=== PATIENT | male | born 1940 | race Caucasian/White ===

== ENCOUNTER 2017-09-10 09:00 | Outpatient (RCR) | payer MEDICARE, SELFPAY ==
--- NOTE | 2017-08-16 13:02 | HP.PTEVAL_ITS ---
Patient's Visit Information MIGUEL YOUNG is a 77 year old M referred to Physical Therapy by RUBEN Willson with a diagnosis of LE radiculopathy. Date of Evaluation: 08/16/17 Physical Therapist: Malvin Christensen PT, - Visit Plan Frequency: 1x/Week Duration: 3 Weeks Plan: Edu on HEP for core and LE strengthening 2-3 visits - Subjective Subjective: Pt reports he has had B LE T and N for over 20 years. Pt reports he had LB surgery for spinal stenosis 5-6 years ago that really had no beneficial effect. Pt reports he has no LBP, but when he walks on concrete, his LE radiculopathy increases. His R LE is worse than his L LE. Pt reports lying down tends to decrease his pain. Pain is always worse as the day goes on. Feet go numb which makes driving hard at this time. 7/10 at rest, 10/10 at worst - Pain B LE's Pain Intensity (Out of 10): 7 Pain Intensity Range: 10 - Objective Neuro: Pt is hyposensitive in B L3-4-5 dematones. All other's are WNL. L pat reflex= 2/3, R= 1/3. LE MMT: B LE's grossly 4-4+/5 throughout. L/S ROM: Linmited in all planes. Repeated movements: NE with flexion - Goals Goal 1:: I with HEP Goal Time Frame: 2-4 Weeks - Rehabilitation Potential Physical Therapy Diagnosis: Pt has LE weakness and LE radiculopathy secondary to deg changes Rehabilitation Potential: Good - Anticipated Interventions Patient/Client Instruction: Educate patient on: Condition, Plan of Care For the Purpose of:: To improve self management Therapeutic Exercise to Include: Strength training, Dynamic Lumbar Stabilization For the Purpose of:: To decrease pain, To increase ROM, To improve muscle performance and motor function Thank you for the opportunity to evaluate your patient. For Medicare and Medicare HMO plans, please review the plan of care and approve it. It will need to be FAXED BACK to us at [phone] for Medicare purposes. Please let me know if there are questions or concerns regarding this plan of care. Physician Signature: Date:
--- NOTE | 2017-09-10 09:58 | HP.PTDCSUM_ITS ---
HP - PT D/C Summary It has been my pleasure to treat MIGUEL YOUNG under orders from Vicky Bales FELICIA for the diagnosis of LE radiculopathy for a total of 4 visit(s) . Discharge Date: Please see the following information for a summary of their discharge status. - Subjective Subjective: Pt reports the burning in his feet is bad - Pain B LE's Pain Intensity (Out of 10): 5 - Objective Objective/Function: Pain relatively the same at 5/10. Pt is I with HEP. Rx goal achieved - Goals Goal 1:: I with HEP Goal Progress: Goal Met - Plan Plan: Discharge to HEP - D/C Information If there are questions or concerns regarding this patient's physical therapy, please feel free to call me at [phone]. Thank you for the referral of this patient. Sincerely, Malvin Christensen, PT,
== END 2017-09-10 19:00 | disposition home or self-care (01) ==
LOC: PT 09:00
DX: M54.10 Radiculopathy, site unspecified (principal)
CPT/HCPCS: 97110; 97161; 97530

== ENCOUNTER 2018-08-08 10:16 | Day surgery (SDC) | payer MEDICARE, SELFPAY ==
[2018-08-08 10:43] VITALS: BP 109/79; PULSE 76; RESP 16; TEMP 37.1; O2SAT 95; BMI 29.5
--- NOTE | 2018-08-08 11:30 | RAD_ITS ---
STUDY: X-RAY - LEFT HIP REASON FOR EXAM: Left hip injection in OR. TECHNIQUE: 2 fluoroscopic images of the hip. COMPARISON: None. FINDINGS: There is contrast in the left hip joint with an overlying needle. 7.9 seconds of fluoroscopy time was used. Electronically Signed: Garett Khan MD at 14:07 EST Tel , Service support , RAD/Fluoro Guided Needle Placement
[2018-08-08] MEDS: Bupivacaine 0.25% 30 ML Vial (11:38)
[2018-08-08] MEDS: MethylPREDNISolone Acetate 80 MG/ML Vial (11:38)
--- NOTE | 2018-08-08 11:41 | PCM.OPRPT ---
Problem List (1) Primary osteoarthritis of left hip Status: Chronic Report of Operation Date of Procedure: 08/08/18 Pre-Operative Diagnosis: Osteoarthritis of the left hip Post-Operative Diagnosis: Osteoarthritis of the left hip Surgery/Procedure Performed:: Left hip intra-articular steroid injection under fluoroscopic guidance Description of Surgical Findings:: PROCEDURE: Left hip intra-articular steroid injection under fluoroscopic guidance PREOPERATIVE DIAGNOSIS: Osteoarthritis of the left hip POSTOPERATIVE DIAGNOSIS: Osteoarthritis of the left hip ANESTHESIA: MAC COMPLICATIONS: None BLOOD LOSS: Minimal PROCEDURE IN DETAIL: History and physical today was reviewed. Risks and benefits of the procedure were explained. The patient understood, agreed to our procedure, and informed consent was obtained. IV inserted per routine protocol. The patient was taken to the operating room, placed in a supine position the left hip area was prepped and draped in a sterile fashion using iodine x3 and fluoroscopy guidance AP view the left hip joint was visualized the skin and subcutaneous tissue and size approximately 3 cc of 1% lidocaine using a 25-gauge regular needle at approximately 3 cm cephalad to the left greater trochanter under direct visualization fluoroscopy on AP view the left hip joint was visualized using the lateral approach using a 22-gauge 5 inch spinal needle the needle was advanced via the skin the tip of the needle's maneuver and directed towards the superiormost aspect of the hip joint once the tip of the needle was at the vicinity of the joint after negative aspiration for blood positive aspiration of synovial fluid a total of 1 cc of contrast were injected to confirm correct placement of the needle as well as halo spread around the hip joint after repeated negative aspiration and confirmation a total of 10 cc of preservative-free 0.25% Marcaine with 80 mg of Depo-Medrol were injected easily the needle was then removed intact patient experienced onset of symptoms intravascular injection patient experienced no paresthesia. The procedure was completed without any apparent difficult, any complication. The patient appeared to tolerate well. ASSESSMENT AND PLAN: This is a 78-year-old male with osteoarthritis of the left hip status post left hip intra-articular steroid injection under fluoroscopic guidance. The patient will continue his current medications. The patient will follow in approximately 2 weeks for reevaluation.
[2018-08-08 11:45] VITALS: BP 109/79; BP 115/72; PULSE 78; RESP 16; TEMP 36.1; O2SAT 94
[2018-08-08 11:50] VITALS: BP 103/69; BP 109/79; PULSE 75; RESP 16; O2SAT 93
[2018-08-08 11:55] VITALS: BP 100/76; BP 109/79; PULSE 72; RESP 16; O2SAT 93
[2018-08-08 12:00] VITALS: BP 109/79; BP 115/69; PULSE 72; RESP 16; TEMP 36.8; O2SAT 94
[2018-08-08 12:41] VITALS: BP 109/79
== END 2018-08-08 12:42 | disposition home or self-care (01) ==
LOC: SDC 10:20 → AC 10:21
PROVIDERS: Referring Provider Anesthesiology Pain Medicine; Visit Provider Anesthesiology Pain Medicine
PROC: 3E0U3GC Introduction of Other Therapeutic Substance into Joints, Percutaneous Approach (ICD-10-PCS; CPT 20610; principal; 2018-08-08 11:25)
DX: M16.12 Unilateral primary osteoarthritis, left hip (principal); E78.5 Hyperlipidemia, unspecified; M51.37 Other intervertebral disc degeneration, lumbosacral region; I27.20 Pulmonary hypertension, unspecified; M96.1 Postlaminectomy syndrome, not elsewhere classified; M54.17 Radiculopathy, lumbosacral region; M47.817 Spondylosis without myelopathy or radiculopathy, lumbosacral region; Z79.899 Other long term (current) drug therapy; Z87.891 Personal history of nicotine dependence
CPT/HCPCS: 20610; 73501; 76000; 77002; J7120

== ENCOUNTER 2018-10-03 08:03 | Day surgery (SDC) | payer MEDICARE, SELFPAY ==
[2018-10-03 08:24] VITALS: BP 140/79; PULSE 67; RESP 14; TEMP 37; O2SAT 96; BMI 29.6
--- NOTE | 2018-10-03 08:46 | RAD_ITS ---
PROCEDURE: Caudal block. DATE OF EXAMINATION: October 03, 2018. INDICATION: Male, 78 years old. Chronic low back pain. FLUOROSCOPY TIME (if supplied): (0:08) minutes/seconds. 2 intraoperative images were obtained. Intraoperative imaging provided for caudal block. The spinal needle is seen along the posterior midportion of the sacrum. RAD/Fluor Guidance for Spine Inj IMPRESSION: Intraoperative imaging provided for caudal block. Electronically Signed: Luis Valencia, at 11:07 EST , Service support ,
[2018-10-03] MEDS: MethylPREDNISolone Acetate 80 MG/ML Vial (08:53)
[2018-10-03] MEDS: Bupivacaine 0.25% 30 ML Vial (08:53)
[2018-10-03 09:01] VITALS: BP 124/71; BP 140/79; PULSE 74; RESP 16; TEMP 37.3; O2SAT 94
[2018-10-03 09:05] VITALS: BP 116/66; BP 140/79; PULSE 75; RESP 16; O2SAT 94
--- NOTE | 2018-10-03 09:05 | OP.PCM_ITS ---
Problem List (1) DDD (degenerative disc disease), lumbosacral Status: Chronic (2) Radiculopathy of lumbosacral region Status: Chronic (3) Spinal stenosis of lumbosacral region Status: Chronic Report of Operation Date of Procedure: 10/03/18 Pre-Operative Diagnosis: Lumbosacral radiculopathy, lumbosacral degenerative disc disease, lumbosacral spinal stenosis Post-Operative Diagnosis: Lumbar sacral radiculopathy, lumbosacral degenerative disc disease, lumbosacral spinal stenosis Surgery/Procedure Performed:: Diagnostic/therapeutic caudal epidural steroid injection Description of Surgical Findings:: PROCEDURE: Diagnostic/therapeutic caudal epidural steroid injection PREOPERATIVE DIAGNOSIS: Lumbosacral radiculopathy, lumbosacral degenerative disc disease, lumbosacral spinal stenosis POSTOPERATIVE DIAGNOSIS: Lumbosacral radiculopathy, lumbosacral degenerative disc disease, lumbosacral spinal stenosis ANESTHESIA: MAC COMPLICATIONS: None BLOOD LOSS: Minimal PROCEDURE IN DETAIL: History and physical today was reviewed. Risks and benefits of the procedure were explained. The patient understood, agreed to our procedure, and informed consent was obtained. IV inserted per routine protocol. The patient was taken to the operating room, placed in a prone position with a pillow positioned underneath the abdomen. The lower back and tailbone area was prepped and draped in a sterile fashion using iodine ?3 under fluoroscopy guidance on the lateral view the caudal space was identified the skin and subcutaneous tissue and size approximately 3 cc of 1% lidocaine using a 25-gauge regular needle under direct visualization fluoroscopy using the lateral approach using a 22-gauge 3-1/2 inch spinal needle the needle was advanced via the skin through the sacral hiatus, tip of the needle passed through the sacrococcygeal ligament advanced approximately S4 area after negative aspiration for blood or CSF a total of 3 cc of contrast were injected to confirm correct placement of the needle as well as cephalad spread the spread was followed to approximately L5 area after confirmation AP as well as lateral view repeated negative aspiration a total of 15 cc of preservative-free 0.125% Marcaine with 80 mg of the portal was injected easily. The needles were then removed intact. The patient experienced no signs or symptoms intrathecal, intravascular injection. The patient experienced no paraesthesia. The procedure was completed without any apparent difficult, any complication. The patient appeared to tolerate well. ASSESSMENT AND PLAN: This is a 78-year-old male with lumbosacral radiculopathy, lumbosacral degenerative disc disease, lumbosacral spinal stenosis status post diagnostic/th erapeutic caudal epidural steroid injection. The patient will continue his current medications. The patient will follow in approximately 2 weeks for reevaluation.
[2018-10-03 09:10] VITALS: BP 123/65; BP 140/79; PULSE 74; RESP 16; O2SAT 94
[2018-10-03 09:16] VITALS: BP 121/82; BP 140/79; PULSE 72; RESP 16; TEMP 37.1; O2SAT 93
[2018-10-03 09:28] VITALS: BP 140/79
== END 2018-10-03 09:45 | disposition home or self-care (01) ==
LOC: SDC 08:05 → AC 08:05
PROVIDERS: Referring Provider Anesthesiology Pain Medicine; Visit Provider Anesthesiology Pain Medicine
PROC: 3E0S3BZ Introduction of Anesthetic Agent into Epidural Space, Percutaneous Approach (ICD-10-PCS; CPT 62282; principal; 2018-10-03 09:05)
DX: M51.17 Intervertebral disc disorders with radiculopathy, lumbosacral region (principal); M48.07 Spinal stenosis, lumbosacral region; E78.00 Pure hypercholesterolemia, unspecified; I27.20 Pulmonary hypertension, unspecified; Q23.1 Congenital insufficiency of aortic valve; Z87.891 Personal history of nicotine dependence
CPT/HCPCS: 01935; 62323; 64483; 77003; J7120; J3490

== ENCOUNTER → 2019-08-30 12:33 | Outpatient (CLI) | payer MEDICARE, SELFPAY ==
[2019-08-16 07:19] VITALS: BMI 30.5
--- NOTE | 2019-08-30 12:34 | ECHOD_ITS ---
Reason For Study: MURMUR Procedure This was a 2D Doppler, Color Flow transthoracic echocardiogram. Exam performed in department. Left Ventricle Normal LV size. Mild concentric left ventricular hypertrophy. Left ventricular systolic function is normal. The estimated ejection fraction is 65 %. No regional wall motion abnormalities noted. Right Ventricle Normal RV size. Normal systolic function. Atria The left atrium is mildly enlarged. Normal right atrium. Mitral Valve Normal mitral valve. Tricuspid Valve Normal tricuspid valve. Mild tricuspid valve insufficiency. Pulmonary artery systolic pressure is 33 mmHg. Aortic Valve Trisinus/trileaflet aortic valve. Mild (1+) aortic valve insufficiency. Pulmonic Valve Normal pulmonic valve. Great Vessels Mildly dilated aortic root. The pulmonary artery is normal size. Normal inferior vena cava. Pericardium/Pleural No pericardial effusion. MMode/2D Measurements & Calculations LVIDd: 4.7 cm IVSd: 1.2 cm LVOT diam: 2.1 cm LVIDs: 3.3 cm LVPWd: 1.3 cm LVOT area: 3.5 cm2 RVDd: 3.3 cm FS: 29.5 % Ao root diam: 4.0 cm LAV(MOD-bp): 63.0 ml EDV(MOD-sp4): 86.2 ml LAV(MOD-bp) Indexed: 31.8 ml/m2 ESV(MOD-sp4): 30.4 ml LAV(MOD-sp2): 60.1 ml EF(MOD-sp4): 64.7 % LAV(MOD-sp4): 65.0 ml EDV(MOD-sp2): 49.7 ml SV(MOD-sp4): 55.8 ml SV(MOD-sp2): 35.3 ml EF(MOD-sp2): 71.2 % LA A4 area: 21.2 cm2 LA dimension(2D): 3.5 cm RA A4 area: 17.7 cm2 Doppler Measurements & Calculations MV E max mike: 54.0 cm/sec Lat Peak E' Mike: 7.5 cm/sec Med Peak E' Mike: 3.7 cm/sec MV A max mike: 79.4 cm/sec E/E' lat: 7.2 E/E' med: 14.6 MV E/A: 0.68 Ao V2 max: 144.5 cm/sec AI max mike: 422.4 cm/sec LV V1 max: 106.3 cm/sec Ao max P.4 mmHg AI max P.0 mmHg LV V1 max P.5 mmHg Ao V2 mean: 99.8 cm/sec LV V1 mean P.4 mmHg Ao mean P.4 mmHg AI dec slope: 252.4 cm/sec2 LV V1 mean: 74.2 cm/sec Ao V2 VTI: 26.2 cm AI P1/2t: 490.2 msec LV V1 VTI: 21.7 cm RITA(I,D): 2.9 cm2 RITA(V,D): 2.5 cm2 SV(LVOT): 75.2 ml PA V2 max: 89.2 cm/sec TR max mike: 270.5 cm/sec TR max P.3 mmHg Interpretation Summary Normal LV size. Mild concentric left ventricular hypertrophy. Left ventricular systolic function is normal. The estimated ejection fraction is 65 %. Mildly dilated aortic root. Mild (1+) aortic valve insufficiency. Ordering Physician: Esteban Harper Referring Physician: Christine Jimenez Performed By: Zeny Sexton, BRITTANY, RVT
== END ==
PROVIDERS: Referring Provider Internal Medicine Cardiovascular Disease; Visit Provider Internal Medicine Cardiovascular Disease
DX: I35.1 Nonrheumatic aortic (valve) insufficiency (principal)
CPT/HCPCS: 93306

== ENCOUNTER 2019-12-28 18:51 | Inpatient (IN) | payer MEDICARE, SELFPAY ==
[2019-09-08 11:12] VITALS: BMI 30.4
[2019-12-28 18:54] VITALS: BP 137/64; PULSE 89; RESP 14; TEMP 36.3; O2SAT 92; BMI 29.9
--- NOTE | 2019-12-28 19:18 | RAD_ITS ---
STUDY: X-RAY CHEST REASON FOR EXAM: Male, 79 years old. FEVER TECHNIQUE: Single frontal view of the chest. COMPARISON: None. FINDINGS: The lungs are clear and expanded. There is no demonstrated pleural abnormality. Normal size heart. Normal mediastinum and venecia. Normal visualized pulmonary arteries. There is atherosclerotic tortuosity of the aortic arch and descending thoracic aorta. There are diffuse degenerative changes of the visualized thoracic spine. Bilateral shoulder arthroplasties. There is no demonstrated abnormality of the visualized soft tissue structures of the upper abdomen. RAD/Chest 1 View (Portable) IMPRESSION: No acute pulmonary findings. Electronically Signed: Jigar Chilel MD at 20:53 EDT Tel , Service support ,
--- NOTE | 2019-12-28 19:18 | EKG12_ITS ---
Test Reason : DYSRYTHMIA Blood Pressure : / mmHG Vent. Rate : 078 BPM Atrial Rate : 078 BPM P-R Int : 162 ms QRS Dur : 110 ms QT Int : 388 ms P-R-T Axes : 025 -01 019 degrees QTc Int : 442 ms Normal sinus rhythm Inferior infarct , age undetermined Abnormal ECG Confirmed by ADITYA FOX ([id number]), editor city ANUPAM ELIZALDE ([id number]) on 01/01/2020 11:16:32 AM Referred By: PINEDA Confirmed By:ADITYA FOX
--- NOTE | 2019-12-28 19:19 | CT_ITS ---
STUDY: CT BRAIN WITHOUT CONTRAST REASON FOR EXAM: Male, 79 years old. CONFUSION, FEVER X 1 DAY RADIATION DOSAGE (If Supplied By Facility): CTDIvol = ( 44.99 ) mGy, DLP = ( 745.49 ) mGycm TECHNIQUE: Transaxial CT imaging of the brain was performed without administration of intravenous contrast material. Individualized dose optimization techniques were used for this CT. COMPARISON: No relevant priors. FINDINGS: Normal soft tissue structures. Normal calvarium. Normal size ventricles and extra-axial spaces for the patient''s age. Normal white matter tracts of the cerebral hemispheres. Normal basal ganglia and thalami. Normal brainstem. Normal cerebellum. There is no intracranial hemorrhage. There are no findings of an acute ischemic infarction. Normal visualized paranasal sinuses. CT/Brain/Head without Contrast IMPRESSION: No acute intracranial process. Electronically Signed: Gabbi Alvarado MD at 21:42 EDT Tel , Service support ,
--- NOTE | 2019-12-28 19:45 | ED.DCSUM_ITS ---
- ER Visit Summary Date of Service: 12/28/19 Chief Complaint: Fever, confusion History of Present Illness: The patient is a 79 M presenting with fever, confusion. Patient began having a fever yesterday, T-max 102.7. He has been taking Tylenol at home. states he was in the car with her on the way to get a COVID test today and became confused. She states he was not making sense. Denies slurred speech. He does not recall this event. He has had chills and rigors. He complains of mild headache. He denies other complaints. Physical Examination: Vitals are stable. Patient is afebrile. Alert no acute distress. HEENT exam is unremarkable. Pharynx normal Neck is supple. No meningismus Lungs are clear and equal bilaterally. Heart is regular rate and rhythm. Abdomen is soft nontender nondistended. Extremities are unremarkable. Skin is warm and dry. No focal neurologic deficit. NIH 0 Remainder of exam is unremarkable. Emergency Department Course and Treatment: EKG is sinus rhythm rate of 78 with no acute ischemic changes. Chest x-ray shows no acute process. CT head shows no acute process. CBC normal except platelet 109. Chemistries normal except potassium 3.3, glucose 193. Urinalysis unremarkable. Troponin 0.018. Lactic acid is normal. Patient given IV fluids. COVID is pending. Due to his episodes of confusion, discussed with the hospitalist for observation. Disposition: Observation Impression: Febrile illness, confusion This note was generated with [employer] dictation software. It may contain incorrect words, spelling, and punctuation that were not noted in review of the chart prior to signing ED Disposition - Plan for ED Patient: Referrals: Christine Jimenez DO [Primary Care Provider] -
[2019-12-28 19:49] LABS: Bacteria 0 SEEN /hpf (None Seen); Mucous, Urine 0 SEEN /hpf (<or=2+); Red Blood Cells-Urine 0 SEEN /hpf (0-5); Squamous Epithelial Cells - UA 0 SEEN /hpf (0-5); White Blood Cells 0 SEEN /hpf (0-5)
[2019-12-28 19:50] VITALS: BP 110/67; PULSE 79; RESP 18; TEMP 37.6; O2SAT 93
[2019-12-28 19:53] LABS: Color, Urine Yellow (Yellow); Glucose, Dipstick Normal (Normal); Ketone-Dipstick Negative (Negative); Leukocyte Esterase-Dipstick Negative /ul (Negative); Nitrite-Dipstick Negative (Negative); Occult Blood-Urine Negative /ul (Negative); Protein-Dipstick Negative (Negative); Specific Gravity, Urine 1.005 (1.002-1.030); Urine Bilirubin Dipstick Negative (Negative); Urine Clarity Clear (Clear); Urine Urobilinogen Normal (Normal); Urine pH 6.5 (5.0 - 8.0)
[2019-12-28 19:59] LABS: Absolute Lymphocyte Count 0.52 X10^3/uL (0.83-4.51); Absolute Neutrophil Count 7.4 X10^3/uL (2.0-7.7); Basophil# 0.01 X10^3/uL; Basophil% 0.1 % (0-1); Eosinophil# 0.01 X10^3/uL; Eosinophils% 0.1 % (0-5); Hematocrit 39.9 % (40-54); Hemoglobin 13.2 g/dL (13.0-16.5); Lymphocyte # 0.52 X10^3/ul (4.0); Lymphocyte % 5.7 % (19-41); Mean Corp Hgb Conc 33.1 g/dL (32-36); Mean Corpuscular Hgb 30.3 pg (27.0-32.0); Mean Corpuscular Volume 91.7 fL (80-94); Mean Platelet Vol. 10.2 fl (6.2-12.0); Monocyte# 1.11 X10^3/uL; Monocyte% 12.2 % (0-10); NRBC Flagged by Analyzer 0 % (0-5); Neutrophil # 7.42 X10^3/uL (2.7-7.7); Neutrophil % 81.4 % (47-70); POSITIVE DIFFERENTIAL YES; Platelet Count 109 K/mm3 (150-450); RBC Distribution Width CV 13.4 % (11.6-14.6); RBC Distribution Width SD 45.6 fl (35.1-43.9); Red Blood Count 4.35 M/mm3 (4.6-6.2); White Blood Count 9.1 K/mm3 (4.4-11.0)
[2019-12-28 20:11] LABS: ALB/GLOB Ratio 1.1 RATIO (0.9-2.4); AST(SGOT) 25 U/L (15-37); Alanine Aminotransfer ALT/SGPT 30 U/L (16-61); Albumin, Serum 3.3 g/dL (3.2-5.0); Alkaline Phosphatase 73 U/L (45-117); Anion Gap 9 (5-15); BUN 16 mg/dL (7-18); BUN/Creat Ratio 13.4 RATIO (10-20); Calcium,Total 8.6 mg/dL (8.5-10.1); Chloride 100 mmol/L (98-107); Creatinine, Serum 1.19 mg/dL (0.70-1.30); EST Glomerular Filtration Rate 62 mL/min (>60); Est Glom Filt Rate - Afr Amer 75 mL/min (>60); Globulin 3.1 g/dL (2.2-4.2); Glucose 193 mg/dL (74-106); Potassium 3.3 mmol/L (3.5-5.1); Protein, Total 6.4 g/dL (6.4-8.2); Sodium Level 136 mmol/L (136-145)
[2019-12-28 20:16] LABS: Differential Indicated SCAN CRITERIA MET
[2019-12-28 20:29] LABS: Lactic Acid 1.7 mmol/L (0.4-1.9)
[2019-12-28 21:03] LABS: Differential Comment SCANNED
[2019-12-28 21:26] VITALS: BP 117/68; PULSE 78; RESP 18; TEMP 37.5; O2SAT 95
[2019-12-28 22:31] VITALS: BP 130/82; PULSE 77; RESP 18; TEMP 37.9; O2SAT 97
--- NOTE | 2019-12-28 22:37 | HP.PCM_ITS ---
Problem List (1) Benign prostatic hyperplasia Status: Chronic (2) Depression Status: Chronic (3) Essential (primary) hypertension Status: Chronic (4) Hyperlipidemia Status: Chronic (5) Aortic root dilatation Status: Chronic History of Present Illness Date of Admission: 12/28/19 Chief Complaint: Fever, reported confusion. The patient is a 79 year old M with past medical history as mentioned above presented to the emergency room because of fever and confusion. Fever started yesterday and was intermittent, maximum temperature was 102.7 Fahrenheit at home, relieved with with Tylenol, associated with confusion according to his and without aggravating or relieving factors. mentioned that she took him today to get COVID-19 test and he was confused and not making any sense. Reportedly, he has chills and rigors as well. He denied cough or sputum production. He denied sore throat, sinus or nasal congestion. His mentioned that they visited his grandson who is an ER physician at [facility]. Patient denied abdominal pain, nausea or vomiting. In the emergency department, he had a spike of low-grade fever of 100.2 Fahrenheit, other vital signs were stable. Routine blood work was remarkable for lymphopenia and potassium of 3.3, blood glucose of 193. LFT was unremarkable. Lactic acid was normal. Urinalysis showed no evidence of acute infection. Chest x-ray showed no acute infiltrate or consolidation. COVID-19 testing came back negative. Patient is being admitted for fever without source of infection, lymphopenia as well as mild hypokalemia. Past Medical History Past Medical History (Chronic Problems): Chronic Problems (Last Reviewed 09/08/19 @ 11:[address] Esteban Harper MD) Benign prostatic hyperplasia (Chronic) Depression (Chronic) Essential (primary) hypertension (Chronic) Hyperlipidemia (Chronic) Aortic root dilatation (Chronic) Medical History: Medical History (Last Reviewed 09/08/19 @ 11:[address] Esteban Harper MD) Essential (primary) hypertension (Chronic) I10 Hyperlipidemia (Chronic) E78.5 Aortic root dilatation (Chronic) I77.810 BPH (benign prostatic hyperplasia) N40.0 DDD (degenerative disc disease), lumbosacral M51.37 Obesity E66.9 Peripheral neuropathy G62.9 Primary osteoarthritis of left hip M16.12 Radiculopathy of lumbosacral region M54.17 Spinal stenosis of lumbosacral region M48.07 Nonrheumatic aortic (valve) insufficiency (Inactive) I35.1 Nonrheumatic mitral (valve) insufficiency (Inactive) I34.0 Allergies diazepam [From Valium] Adverse Reaction (Verified 12/28/19 18:54) Unknown Home Medications: Ambulatory Orders Medication Instructions Recorded Calcium Carbonate [Calcium] 600 mg PO DAILY 07/29/18 Cholecalciferol (Vitamin D3) 4,000 unit PO DAILY 07/29/18 [Vitamin D3] Cyanocobalamin (Vitamin B-12) 1,000 mcg PO DAILY 07/29/18 [Vitamin B-12] Duloxetine Hcl [Cymbalta] 60 mg PO DAILY 07/29/18 Magnesium Oxide [Magnesium] 250 mg PO DAILY 07/29/18 Multivitamin [Multiple Vitamins] 1 ea PO DAILY 07/29/18 Psyllium Husk (with Sugar) 3.4 gm PO DAILY 07/29/18 [Metamucil Packet] Tamsulosin HCl [Flomax] 0.4 mg PO DAILY 07/29/18 pregabalin 50 mg capsule 50 mg PO BID cap 08/16/19 hydrochlorothiazide 12.5 mg tablet 12.5 mg PO DAILY #90 tab 09/08/19 metoprolol succinate 50 mg 50 mg PO QHS #90 tab 09/08/19 tablet,extended release 24 hr atorvastatin 10 mg tablet 10 mg PO DAILY #90 tab 10/19/19 Surgical History: Surgical History (Last Reviewed 12/28/19 @ 22:[address] Tu Munroe MD) H/O basal cell carcinoma excision Onset Date: 08/2019 Z98.890, Z85.828 History of back surgery Z98.890 History of pancreatic surgery Z98.890 Psychiatric History: Depression Lives: Spouse/ Significant Other Smoking Status: Former smoker Alcohol: None Drugs: None - *Family History Maternal Family History: Family History (Last Reviewed 09/08/19 @ 11:[address] Esteban Harper MD) Mother Myocardial infarction Diabetes Other Heart disease History Items: No pertinent history Paternal Family History: Family History (Last Reviewed 09/08/19 @ 11:[address] Esteban Harper MD) Mother Myocardial infarction Diabetes Other Heart disease History Items: No pertinent history Review of Systems Constitutional: Reports: Chills, Fever, Weakness. Denies: Anorexia Eyes: Denies: Blurred vision, Double vision, Drainage, Redness HEENT: Denies: Difficulty Hearing, Dysphasia, Ear Pain, Eye Pain, Nasal Congestion, Sore Throat Cardiovascular: Denies: Chest Pain, Chest Pressure, Chest Tightness, Light Headedness, Palpitations, Syncope Respiratory: Denies: Cough, Pleuritic Pain, Shortness of Breath, Sputum production, Wheezing Gastrointestinal: Denies: Abdominal Pain, Constipation, Diarrhea, Nausea, Vomiting Genitourinary: Denies: Dysuria, Frequency, Hesitancy Musculoskeletal: Denies: Arm Pain, Back Pain, Foot Pain Skin: Denies: Dryness, Rash Neurological: Reports: Confusion. Denies: Balance problems, Blurred vision, Double vision, Slurred speech, Incoordination, Numbness Psychiatric: Reports: Depression. Denies: Anxiety Endocrine: Denies: Change in Body Habitus, Polydipsia, Polyuria VTE Information - Inpt Only VTE Present on Admission: No VTE Mechan Device Prophylaxis: None VTE Pharm Prophylaxis ordered?: Yes - Physical Exam Vitals/I&O's: Vital Signs Temp Pulse Resp BP Pulse Ox 100.2 F H 77 18 130/82 H 97 12/28/19 22:31 12/28/19 22:31 12/28/19 22:31 12/28/19 22:31 12/28/19 22:31 Oxygen Delivery Method Room Air Weight: 197 lb 1.492 oz Body Mass Index (BMI) 29.9 Intake and Output for Last 24 Hours 12/26/19 12/27/19 12/28/19 23:59 23:59 23:59 Intake Total 500 / 500 Balance 500 / 500 General: Alert, Oriented x3, Cooperative, No apparent distress HEENT: Atraumatic, PERRLA, EOMI, Normocephalic Oral: Moist Mucosa, No Gingival or Mucosal Lesions/ Ulcerations Neck: Supple, No JVD, Negative Carotid Bruits, Trachea Midline, Thyroid Normal Size and Texture Lungs: Clear to auscultation, Normal air movement, No rhonchi, No wheeze, No rales, Diminished Cardiovascular: Regular rate, Regular Rhythm, Normal S1, Normal S2, PMI Normal Abdomen: Bowel Sounds Present, Soft, Non Tender, Non-Distended, No Hepato- splenomegaly Extremities: No clubbing, No cyanosis, No edema Skin: No rashes, No breakdown Lymphatic: No Cervical, Supraclavicular, or Inguinal Adenopathy Neurological: Cranial nerves II-XII grossly intact, Motor Exam 5/5 strength throughout Psych/Mental Status: Normal Affect, Appropriate, Alert and oriented to time, place, person, mood and affect Laboratory Results 12/28/19 19:35: WBC 9.1, RBC 4.35 L, Hgb 13.2, Hct 39.9 L, MCV 91.7, MCH 30.3, MCHC 33.1, RDW Std Deviation 45.6 H, RDW Coeff of Michael 13.4, Plt Count 109 L, MPV 10.2, Immature Gran % (Auto) 0.500, Neut % (Auto) 81.4 H, Lymph % (Auto) 5.7 L, Saline % (Auto) 12.2 H, Eos % (Auto) 0.1, Baso % (Auto) 0.1, Absolute Neuts (auto) 7.4, Absolute Lymphs (auto) 0.52 L, Nucleated RBC % 0, Differential Comment SCANNED 12/28/19 19:35: Sodium 136, Potassium 3.3 L, Chloride 100, Carbon Dioxide 27.0, Anion Gap 9, BUN 16, Creatinine 1.19, Estim Creat Clear Calc 47.10, Est GFR (MDRD) Af Amer 75, Est GFR (MDRD) Non-Af 62, BUN/Creatinine Ratio 13.4, Glucose 193 H, Calcium 8.6, Total Bilirubin 0.90, AST 25, ALT 30, Alkaline Phosphatase 73, Troponin I 0.018, Total Protein 6.4, Albumin 3.3, Globulin 3.1, Albumin/Globulin Ratio 1.1 12/28/19 19:35: Lactic Acid 1.7 12/28/19 19:35: Urine Color Yellow, Urine Clarity Clear, Urine pH 6.5, Ur Specific [place] 1.005, Urine Protein Negative, Urine Glucose (UA) Normal, Urine Ketones Negative, Urine Occult Blood Negative, Urine Nitrite Negative, Urine Bilirubin Negative, Urine Urobilinogen Normal, Ur Leukocyte Esterase Negative, Urine RBC 0 SEEN, Urine WBC 0 SEEN, Ur Squamous Epith Cells 0 SEEN, Urine Bacteria 0 SEEN, Urine Mucus 0 SEEN Clinical Impression(s) from Imaging Studies Chest X-Ray 12/28/19 19:18 IMPRESSION: No acute pulmonary findings. Electronically Signed: Jigar Chilel MD at 20:53 EDT Tel , Service support , Brain CT 12/28/19 19:19 IMPRESSION: No acute intracranial process. Electronically Signed: Gabbi Alvarado MD at 21:42 EDT Tel , Service support , Assessment/Plan This is an 79 years old male patient presented to the emergency room because of fever with chills, no source of infection identified, COVID-19 testing came back negative and patient is being admitted for observation for evaluation. #1 fever: Without obvious source of infection although patient does have lymphopenia which is consistent with possible COVID-19. Testing for COVID-19 came back negative. Chest x-ray showed no acute findings. Urinalysis was unremarkable. Apart from lymphopenia and hypokalemia, CBC and BMP was unremarkable. LFT and lactic acid was normal. Plan: Admit to MedSurg observation, blood culture, urine culture, gentle IV fluids for hydration, Tylenol PRN, repeat CBC and BMP tomorrow morning, PT OT evaluation and treatment. At this time, no indication for IV antibiotics. #2 hypokalemia: Likely due to HCTZ. Will give 1 dose of K. Dur 40 mEq x 1, repeat BMP tomorrow morning. #3 hyperglycemia: With history of diet-controlled diabetes according to the patient's . Plan: Accu-Cheks q. ACH, insulin sliding scale, will check hemoglobin A1c. #4 hypertension: Blood pressure stable, continue HCTZ and metoprolol. #5 hyperlipidemia: Continue statins. #6 benign prostatic hypertrophy: Continue Flomax. #7 aortic root dilatation: Stable, no issues. #8 DVT prophylaxis: Subcu Lovenox. This note was generated with [employer] software. It may contain incorrect words, spelling, and punctuation that were not noted in checking the note before signing. OBSV E&M: 34156 Initial observation care L3
[2019-12-28] MEDS: Acetaminophen 325 MG Tablet 650 MG PO (22:59)
[2019-12-28 23:02] VITALS: BP 118/71; PULSE 82; RESP 16; O2SAT 94
[2019-12-29] VITALS (10 sets, daily range): BP systolic 94–109; BP diastolic 53–66; PULSE 60–76; RESP 16–18; TEMP 36.3–38.7; O2SAT 91–98; BMI 30.1
[2019-12-29 02:45] LABS: Absolute Lymphocyte Count 0.53 X10^3/uL (0.83-4.51); Absolute Neutrophil Count 7.7 X10^3/uL (2.0-7.7); Basophil# 0.02 X10^3/uL; Basophil% 0.2 % (0-1); Hematocrit 40.9 % (40-54); Hemoglobin 13.4 g/dL (13.0-16.5); Lymphocyte # 0.53 X10^3/ul (4.0); Lymphocyte % 5.7 % (19-41); Mean Corp Hgb Conc 32.8 g/dL (32-36); Mean Corpuscular Hgb 30.3 pg (27.0-32.0); Mean Corpuscular Volume 92.5 fL (80-94); Mean Platelet Vol. 10.4 fl (6.2-12.0); Monocyte# 0.98 X10^3/uL; Monocyte% 10.6 % (0-10); NRBC Flagged by Analyzer 0 % (0-5); Neutrophil # 7.65 X10^3/uL (2.7-7.7); Neutrophil % 82.9 % (47-70); POSITIVE DIFFERENTIAL YES; Platelet Count 102 K/mm3 (150-450); RBC Distribution Width CV 13.6 % (11.6-14.6); RBC Distribution Width SD 46.5 fl (35.1-43.9); Red Blood Count 4.42 M/mm3 (4.6-6.2); White Blood Count 9.2 K/mm3 (4.4-11.0)
[2019-12-29 02:50] LABS: Hemoglobin A1c 5.6 % (3.8-5.6)
[2019-12-29 02:54] LABS: Differential Indicated SCAN CRITERIA MET
[2019-12-29 03:03] LABS: Anion Gap 7 (5-15); BUN 14 mg/dL (7-18); Calcium,Total 8.7 mg/dL (8.5-10.1); Chloride 104 mmol/L (98-107); EST Glomerular Filtration Rate 76 mL/min (>60); Est Glom Filt Rate - Afr Amer 92 mL/min (>60); Estimated Creatinine Clearance 54.17 ml/min; Glucose 137 mg/dL (74-106); Potassium 3.6 mmol/L (3.5-5.1); Sodium Level 138 mmol/L (136-145)
[2019-12-29 03:47] LABS: Differential Comment SCANNED
[2019-12-29] MEDS: Acetaminophen 325 MG Tablet 650 MG PO ×2 (06:20→13:51)
[2019-12-29] MEDS: 0.9% Saline Lock 10 ML Syringe IV ×2 (06:20→10:25)
[2019-12-29 07:01] LABS: Bedside Glucose 140 mg/dL (70-110)
--- NOTE | 2019-12-29 09:06 | NURSING ---
daughter fatuma call, update given
--- NOTE | 2019-12-29 09:12 | PCM.PROGNOTE ---
Patient Problems: Active and Suspected Problems (Last Updated 12/29/19 @ 01:[address] Tu Munroe MD) Fever (Acute) Subjective: Mr. Caceres is an 79-year-old male with a past medical history of BPH, depression, hypertension, hyperlipidemia, aortic root dilation, degenerative disc disease, obesity, peripheral neuropathy, osteoarthritis, radicular pain secondary to degenerative disc disease and degenerative joint disease in the lumbosacral spine, spinal stenosis in the lumbosacral region and nonrheumatic aortic valve insufficiency who presented to the emergency room complaining of fever and confusion. The fever started on 12/27/2019 and his max temp at home was 102.7 ?F. He had a COVID-19 test that was negative. He does not have a cough. He has Rigors. UA revealed no white blood cells and no red blood cells. Chest x-ray was reported as no infiltrates. Noncontrasted brain CT was reported as no acute intracranial process. He had a fever at 6:00 this morning and the temp was 101.6. It did resolve with Tylenol. Blood pressure is on the low side this morning at 94/53 with a mean arterial pressure of 66. He is 91 to 93% on room air. All lab was personally reviewed. White blood cell count today is 9.2 with a persistent left shift. Hemoglobin is 13.4 with normochromic normocytic indices but an increased RDW. Platelets low at 102,000. Sodium is 138 and the potassium has been adequately repleted and is 3.6 today. BUN is 14 and the creatinine is 1.0, down from 1.19 at admission. Random blood sugar at admission was 193 and the fasting glucose this morning is 137. Hemoglobin A1c is normal at 5.6. Lactic acid was 1.7 at admission. LFTs are within normal limits. Denies cough, dysuria, pelvic pain, abdominal pain, vomiting, diarrhea, sore throat. To his knowledge he has no sick contacts and he has been wearing a mask. He tells me that he had an infection years ago and ended up in the hospital and nobody could figure out what was wrong with him. He had antibiotics at that time. Interpretation Summary-August 2019 Normal LV size. Mild concentric left ventricular hypertrophy. Left ventricular systolic function is normal. The estimated ejection fraction is 65 %. Mildly dilated aortic root. Mild (1+) aortic valve insufficiency. - Physical Exam Vitals/I&O's: Vital Signs Temp Pulse Resp BP Pulse Ox 98.7 F 74 16 94/53 L 93 12/29/19 07:50 12/29/19 07:50 12/29/19 07:50 12/29/19 07:50 12/29/19 07:50 Oxygen Delivery Method Room Air Weight: 192 lb 0.362 oz Body Mass Index (BMI) 30.0 Intake and Output for Last 24 Hours 12/27/19 12/28/19 12/29/19 23:59 23:59 23:59 Intake Total 500 / 500 500 / 500 Balance 500 / 500 500 / 500 General: Alert, Oriented x3, Cooperative, No apparent distress, Well developed, Well nourished HEENT: Atraumatic, PERRLA, EOMI, Normocephalic, - - No pharyngeal injection or exudates Oral: Dry Mucosa Neck: Supple, No JVD, Negative Carotid Bruits, No Nodes, No Nuchal Rigidity, Trachea Midline Lungs: Clear to auscultation, No rhonchi, No wheeze, No rales, - - He is not tachypneic and has no conversational dyspnea. There is no accessory muscle use. Cardiovascular: Regular rate, Regular Rhythm, Normal S1, Normal S2, No murmurs, No Ectopic Activity, No rub noted, No Gallop Abdomen: Bowel Sounds Present, Soft, Non Tender, Non-Distended, - - No hepatosplenomegaly appreciated. No masses Extremities: No clubbing, No cyanosis, No edema, Capillary Refill Less than 3 Seconds, No Calf Tenderness, Peripheral Pulses Normal Skin: No rashes, No breakdown Musculoskeletal: Arthritic Changes Neurological: Cranial nerves II-XII grossly intact, Neuro grossly intact Psych/Mental Status: Normal Affect, Appropriate Microbiology Past 72 Hours 12/28/19 22:15 Mucosa - Nasopharyngeal Coronavirus COVID-19 PCR - Final Laboratory Results 12/28/19 19:35: WBC 9.1, RBC 4.35 L, Hgb 13.2, Hct 39.9 L, MCV 91.7, MCH 30.3, MCHC 33.1, RDW Std Deviation 45.6 H, RDW Coeff of Michael 13.4, Plt Count 109 L, MPV 10.2, Immature Gran % (Auto) 0.500, Neut % (Auto) 81.4 H, Lymph % (Auto) 5.7 L, [place] % (Auto) 12.2 H, Eos % (Auto) 0.1, Baso % (Auto) 0.1, Absolute Neuts (auto) 7.4, Absolute Lymphs (auto) 0.52 L, Nucleated RBC % 0, Differential Comment SCANNED 12/28/19 19:35: Sodium 136, Potassium 3.3 L, Chloride 100, Carbon Dioxide 27.0, Anion Gap 9, BUN 16, Creatinine 1.19, Estim Creat Clear Calc 47.10, Est GFR (MDRD) Af Amer 75, Est GFR (MDRD) Non-Af 62, BUN/Creatinine Ratio 13.4, Glucose 193 H, Calcium 8.6, Total Bilirubin 0.90, AST 25, ALT 30, Alkaline Phosphatase 73, Troponin I 0.018, Total Protein 6.4, Albumin 3.3, Globulin 3.1, Albumin/Globulin Ratio 1.1 12/28/19 19:35: Lactic Acid 1.7 12/28/19 19:35: Urine Color Yellow, Urine Clarity Clear, Urine pH 6.5, Ur Specific [place] 1.005, Urine Protein Negative, Urine Glucose (UA) Normal, Urine Ketones Negative, Urine Occult Blood Negative, Urine Nitrite Negative, Urine Bilirubin Negative, Urine Urobilinogen Normal, Ur Leukocyte Esterase Negative, Urine RBC 0 SEEN, Urine WBC 0 SEEN, Ur Squamous Epith Cells 0 SEEN, Urine Bacteria 0 SEEN, Urine Mucus 0 SEEN 12/28/19 19:35: Hemoglobin A1c 5.6 12/29/19 02:35: WBC 9.2, RBC 4.42 L, Hgb 13.4, Hct 40.9, MCV 92.5, MCH 30.3, MCHC 32.8, RDW Std Deviation 46.5 H, RDW Coeff of Michael 13.6, Plt Count 102 L, MPV 10.4, Immature Gran % (Auto) 0.600, Neut % (Auto) 82.9 H, Lymph % (Auto) 5.7 L, [place] % (Auto) 10.6 H, Eos % (Auto) 0.0, Baso % (Auto) 0.2, Absolute Neuts (auto) 7.7, Absolute Lymphs (auto) 0.53 L, Nucleated RBC % 0, Differential Comment SCANNED 12/29/19 02:35: Sodium 138, Potassium 3.6, Chloride 104, Carbon Dioxide 27.0, Anion Gap 7, BUN 14, Creatinine 1.00, Estim Creat Clear Calc 54.17, Est GFR (MDRD) Af Amer 92, Est GFR (MDRD) Non-Af 76, BUN/Creatinine Ratio 14.0, Glucose 137 H, Calcium 8.7 12/29/19 06:17: POC Glucose 140 H Current Medications Acetaminophen (Tylenol) 650 mg PO Q6H PRN PRN PRN Reason: Pain Score 1-10/Temp > 100.7 F Last Admin: 12/29/19 06:20 Dose: 650 mg Documented by: Albuterol Sulfate (Ventolin Aerosols) 2.5 mg INHALATION Q4H PRN PRN PRN Reason: Shortness of breath, wheezing Atorvastatin Calcium (Lipitor) 10 mg PO DAILY@2200 [facility] Dextrose (D50w Syringe) 0 gm IV X1 PRN; Protocol PRN Reason: Hypoglycemia Duloxetine HCl (Cymbalta) 60 mg PO DAILY [facility] Enoxaparin Sodium (Lovenox) 40 mg SC DAILY [facility] Glucagon () 1 mg IM .X1 PRN PRN Reason: Hypoglycemia Hydrochlorothiazide () 12.5 mg PO DAILY [facility] Sodium Chloride () 250 mls @ 15 mls/hr IV .[id number] PRN PRN Reason: Saline Flush Insulin Human Lispro (Humalog Kwikpen (Bkc)) 0 unit SC ACHS [facility]; Protocol Last Admin: 12/29/19 06:21 Dose: Not Given Documented by: Magnesium Oxide (Mag-Ox 400) 200 mg PO DAILY [facility] Metoprolol Succinate (Toprol Xl (Beta Johan)) 50 mg PO QHS [facility] Ondansetron HCl (Zofran) 4 mg IV Q8H PRN PRN PRN Reason: NAUSEA/VOMITING Pregabalin (Lyrica) 50 mg PO BID [facility] Senna/Docusate Sodium (Senokot-S, Arpita-Colace) 2 tablet PO BID PRN PRN PRN Reason: Constipation Sodium Chloride () 10 - 40 ml IV UD PRN PRN Reason: SALINE FLUSH Last Admin: 12/29/19 06:20 Dose: 10 ml Documented by: Tamsulosin HCl (Flomax) 0.4 mg PO DAILY [facility] Zolpidem Tartrate (Ambien (Generic)) 5 mg PO QHS PRN PRN PRN Reason: INSOMNIA Medical Necessity - Tobacco Use Smoking Status: Former smoker Assessment/Plan All Active Problems (Last Updated 12/29/19 @ 01:[address] Tu Munroe MD) Fever (Acute) Impressions 1. Fever of unknown origin -white blood cell count is within normal limits however there is a marked left shift. Blood culture was drawn in the emergency department. UA is clean and the chest x-ray reveals no infiltrates. He is not coughing. Will start Unasyn because men in this age range sometimes have group B strep bacteremia and await the results of the blood cultures. Will obtain a set of blood cultures if he again has a fever. Consult Dr. Dawson. 2. Hypokalemia-resolved with supplementation. 3. Borderline hypotension with an MAP of 66 this morning. Mucous membranes are very dry. Will start IV normal saline. 4. Hyperglycemia with a normal hemoglobin A1c 5. BPH 6. Hypertension 7. Hyperlipidemia Repeat BC's if the temp is > 100.9 Start Unasyn 3 g IV every [address] Scotty Erickson from infectious disease Hydrate for low blood pressure and dry mucous membranes-500 cc bolus now and IV normal saline at 100 cc/h x 2 L Recheck lab in the a.m. Inpatient E&M: 65858 Subs Hosp L2
[2019-12-29 09:24] LABS: Pathologist Review Reviewed
[2019-12-29] MEDS: DULoxetine Hcl 60 MG Capsule PO (09:25)
[2019-12-29] MEDS: Enoxaparin 40 MG/0.4 ML Syringe SC (09:25)
[2019-12-29] MEDS: Magnesium Oxide 400 MG Tablet 200 MG PO (09:25)
[2019-12-29] MEDS: Pregabalin 50 MG Capsule PO ×2 (09:29→21:59)
--- NOTE | 2019-12-29 09:46 | NURSING ---
called jannet update given
[2019-12-29] MEDS: 0.9% Normal Saline 1,000 ML 100 ML IV ×2 (10:24→23:33)
[2019-12-29 11:00] LABS: Magnesium 2.2 mg/dL (1.6-2.6); Phosphorus 2.6 mg/dL (2.5-4.9)
[2019-12-29 11:15] LABS: Bedside Glucose 139 mg/dL (70-110)
--- NOTE | 2019-12-29 11:50 | CASEMGMT ---
RN CM SHIP LABORER MG placed call to pt's room and assessment completed via phone conversation at this time. Pt is A/O at this time and answers all questions appropriately. Care providers, pharmacy, and demographics verified/updated at this time. PCP: Dr Christine Jimenez Specialists: Says sees a fence setter in [place] for neuropathy but does not remember the doctor's name. Preferred Pharmacy: [email or web address] Insurance: [facility] Prescription Benefit: Yes Living Will/HPOA: Pt states he thinks he has a LW and Healthcare POA, which would be his , Annamarie, but he is not sure, stating, My takes care of all of that. LNOK: , Annamarie. Son and daughter, Evelyn Living Arrangements: Lives with his , Annamarie, and daughter, Evelyn, lives with them. They live in a mobile home 3 steps to enter w/rails on both sides. Denies difficulty with the stairs. Independent. Transportation: Pt states drives self and states no transportation concerns at this time. also drives. DME: States has the following DME: grab bars in shower. Has a cane and WW available but does not use either. Pt states no need for further DME at this time. HHC/SNF: No history of either and no needs identified. PT/OT evals reviewed and no additional therapy recommended. Pt wishes to return home and states has no concerns with going home at time of discharge. CM to follow for home oxygen needs and any discharge planning/needs. Pt voices no concerns/needs at this time. Advised pt to ask for CM if any further questions/concerns/needs arise. Voices understanding. MACKEY form reviewed with pt at this time via phone conversation and telephone signature signed by this RN MG. Copy made and placed on chart and original MACKEY form given to RN to give to pt. PLAN: Home w/spousal support and discharge plans in place. Amanda SPAULDING RN, CM
--- NOTE | 2019-12-29 12:06 | CON.PCM_ITS ---
Problem List (1) Fever Status: Acute Reason for Consult: fever Consulted by: Dr. Guthrie History of Present Illness: The patient is a 79 year old M with h/o BPH, htn, presented to ED with 2 days of fever, confusion. Reports symptoms started after he was painting outside in very hot weather. Had been feeling fine prior to this. Got overheated, went inside, took a shower, developed chills. Next day still had some fever/chills, some confusion per family. Mild nausea. No headache, no sore throat, no change in taste/smell, no cough or SOB, no abd pain or diarrhea, no dysuria, no aches/pain/rash/wounds. 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 Came to ED, admitted on unasyn yesterday, now feeling fine. Fever to 101.6 on admit, none since. Full ROS performed and neg except as noted above. - Medical History Past Medical History (Chronic Problems): Chronic Problems (Last Updated 12/29/19 @ 01:[address] Tu Munroe MD) Benign prostatic hyperplasia (Chronic) Depression (Chronic) Essential (primary) hypertension (Chronic) Hyperlipidemia (Chronic) Aortic root dilatation (Chronic) Allergies/Adverse Reactions: Allergies diazepam [From Valium] Adverse Reaction (Verified 12/28/19 18:54) Unknown Home Medications: Ambulatory Orders Medication Instructions Recorded Calcium Carbonate [Calcium] 600 mg PO DAILY 07/29/18 Cholecalciferol (Vitamin D3) 4,000 unit PO DAILY 07/29/18 [Vitamin D3] Cyanocobalamin (Vitamin B-12) 1,000 mcg PO DAILY 07/29/18 [Vitamin B-12] Duloxetine Hcl [Cymbalta] 60 mg PO DAILY 07/29/18 Magnesium Oxide [Magnesium] 250 mg PO DAILY 07/29/18 Multivitamin [Multiple Vitamins] 1 ea PO DAILY 07/29/18 Psyllium Husk (with Sugar) 3.4 gm PO DAILY 07/29/18 [Metamucil Packet] Tamsulosin HCl [Flomax] 0.4 mg PO DAILY 07/29/18 pregabalin 50 mg capsule 50 mg PO BID cap 08/16/19 hydrochlorothiazide 12.5 mg tablet 12.5 mg PO DAILY #90 tab 09/08/19 metoprolol succinate 50 mg 50 mg PO QHS #90 tab 09/08/19 tablet,extended release 24 hr atorvastatin 10 mg tablet 10 mg PO DAILY #90 tab 10/19/19 - Social History SMOKING STATUS:: Former smoker Vital Signs Temp Pulse Resp BP Pulse Ox 97.4 F L 60 16 96/63 98 12/29/19 10:58 12/29/19 10:58 12/29/19 10:58 12/29/19 10:58 12/29/19 10:58 Oxygen Delivery Method Room Air Weight: 87.1 kg Body Mass Index (BMI) 30.0 Microbiology Past 72 Hours 12/28/19 22:15 Coronavirus COVID-19 PCR - Final Mucosa - Nasopharyngeal Laboratory Tests Past 24 Hrs 12/28/19 12/28/19 12/28/19 19:35 19:35 19:35 WBC 9.1 RBC 4.35 L Hgb 13.2 Hct 39.9 L MCV 91.7 MCH 30.3 MCHC 33.1 RDW Std Deviation 45.6 H RDW Coeff of Michale 13.4 Plt Count 109 L MPV 10.2 Immature Gran % (Auto) 0.500 Neut % (Auto) 81.4 H Lymph % (Auto) 5.7 L Republic % (Auto) 12.2 H Eos % (Auto) 0.1 Baso % (Auto) 0.1 Absolute Neuts (auto) 7.4 Absolute Lymphs (auto) 0.52 L Nucleated RBC % 0 Differential Comment SCANNED Diff Path Review Reviewed Sodium 136 Potassium 3.3 L Chloride 100 Carbon Dioxide 27.0 Anion Gap 9 BUN 16 Creatinine 1.19 Estim Creat Clear Calc 47.10 Est GFR (MDRD) Af Amer 75 Est GFR (MDRD) Non-Af 62 BUN/Creatinine Ratio 13.4 Glucose 193 H Hemoglobin A1c Lactic Acid 1.7 Calcium 8.6 Phosphorus Magnesium Total Bilirubin 0.90 AST 25 ALT 30 Alkaline Phosphatase 73 Troponin I 0.018 Total Protein 6.4 Albumin 3.3 Globulin 3.1 Albumin/Globulin Ratio 1.1 Urine Color Urine Clarity Urine pH Ur Specific [place] Urine Protein Urine Glucose (UA) Urine Ketones Urine Occult Blood Urine Nitrite Urine Bilirubin Urine Urobilinogen Ur Leukocyte Esterase Urine RBC Urine WBC Ur Squamous Epith Cells Urine Bacteria Urine Mucus 12/28/19 12/28/19 12/29/19 19:35 19:35 02:35 WBC 9.2 RBC 4.42 L Hgb 13.4 Hct 40.9 MCV 92.5 MCH 30.3 MCHC 32.8 RDW Std Deviation 46.5 H RDW Coeff of Michael 13.6 Plt Count 102 L MPV 10.4 Immature Gran % (Auto) 0.600 Neut % (Auto) 82.9 H Lymph % (Auto) 5.7 L Republic % (Auto) 10.6 H Eos % (Auto) 0.0 Baso % (Auto) 0.2 Absolute Neuts (auto) 7.7 Absolute Lymphs (auto) 0.53 L Nucleated RBC % 0 Differential Comment SCANNED Diff Path Review Sodium Potassium Chloride Carbon Dioxide Anion Gap BUN Creatinine Estim Creat Clear Calc Est GFR (MDRD) Af Amer Est GFR (MDRD) Non-Af BUN/Creatinine Ratio Glucose Hemoglobin A1c 5.6 Lactic Acid Calcium Phosphorus Magnesium Total Bilirubin AST ALT Alkaline Phosphatase Troponin I Total Protein Albumin Globulin Albumin/Globulin Ratio Urine Color Yellow Urine Clarity Clear Urine pH 6.5 Ur Specific [place] 1.005 Urine Protein Negative Urine Glucose (UA) Normal Urine Ketones Negative Urine Occult Blood Negative Urine Nitrite Negative Urine Bilirubin Negative Urine Urobilinogen Normal Ur Leukocyte Esterase Negative Urine RBC 0 SEEN Urine WBC 0 SEEN Ur Squamous Epith Cells 0 SEEN Urine Bacteria 0 SEEN Urine Mucus 0 SEEN 12/29/19 12/29/19 02:35 02:35 WBC RBC Hgb Hct MCV MCH MCHC RDW Std Deviation RDW Coeff of Michael Plt Count MPV Immature Gran % (Auto) Neut % (Auto) Lymph % (Auto) Republic % (Auto) Eos % (Auto) Baso % (Auto) Absolute Neuts (auto) Absolute Lymphs (auto) Nucleated RBC % Differential Comment Diff Path Review Sodium 138 Potassium 3.6 Chloride 104 Carbon Dioxide 27.0 Anion Gap 7 BUN 14 Creatinine 1.00 Estim Creat Clear Calc 54.17 Est GFR (MDRD) Af Amer 92 Est GFR (MDRD) Non-Af 76 BUN/Creatinine Ratio 14.0 Glucose 137 H Hemoglobin A1c Lactic Acid Calcium 8.7 Phosphorus 2.6 Magnesium 2.2 Total Bilirubin AST ALT Alkaline Phosphatase Troponin I Total Protein Albumin Globulin Albumin/Globulin Ratio Urine Color Urine Clarity Urine pH Ur Specific [place] Urine Protein Urine Glucose (UA) Urine Ketones Urine Occult Blood Urine Nitrite Urine Bilirubin Urine Urobilinogen Ur Leukocyte Esterase Urine RBC Urine WBC Ur Squamous Epith Cells Urine Bacteria Urine Mucus - Other Studies Radiology: [] reviewed Other Studies: [] Route of nutrition/ use of supplements: [] Nutritional Intake: [] IV Site: [] Cameron Catheter: [] - Physical Exam General: Alert, Cooperative, No apparent distress, - - oriented x2 HEENT: Atraumatic, PERRLA, EOMI Neck: Supple, No Nodes Lungs: Clear to auscultation, Normal air movement Cardiovascular: Regular rate, Regular Rhythm, No murmurs Abdomen: Soft, Non Tender, Non-Distended Extremities: No edema Skin: No rashes IV Site: Peripheral, without redness Musculoskeletal: No Tenderness to Palpation of Joints or Extremities Neurological: Cranial nerves II-XII grossly intact - Assessment/Plan Antibiotics: [] Assessment/Plan: [] fever - unclear source. Appears low risk for covid without the typical symptoms other than the fever. Heat stroke may have played a role in his presentation. UA clear, wbc normal, covid pcr neg, cxr and head CT neg. Rapid improvement. On unasyn, but no clear sign of bacterial infection either. If he continues to feel fine with negative cxs, ok for d/c home off of abx. Will follow, thank you, d/w Dr. Guthrie
[2019-12-29 16:41] LABS: Bedside Glucose 146 mg/dL (70-110)
[2019-12-29 21:45] LABS: Bedside Glucose 138 mg/dL (70-110)
[2019-12-29] MEDS: Zolpidem Tartrate 5 MG Tablet PO (21:55)
[2019-12-29] MEDS: Metoprolol(XL)Succ 50 MG Tablet PO (21:55)
[2019-12-29] MEDS: Atorvastatin Calcium 10 MG Tablet PO (21:55)
[2019-12-30] VITALS (7 sets, daily range): BP systolic 105–133; BP diastolic 62–74; PULSE 62–72; RESP 16–18; TEMP 36.4–37.4; O2SAT 91–98
[2019-12-30 06:55] LABS: Bedside Glucose 112 mg/dL (70-110)
[2019-12-30 07:53] LABS: Absolute Lymphocyte Count 0.55 X10^3/uL (0.83-4.51); Absolute Neutrophil Count 5.3 X10^3/uL (2.0-7.7); Basophil# 0.02 X10^3/uL; Basophil% 0.3 % (0-1); Eosinophil# 0.02 X10^3/uL; Eosinophils% 0.3 % (0-5); Hematocrit 37.9 % (40-54); Hemoglobin 12.1 g/dL (13.0-16.5); Lymphocyte # 0.55 X10^3/ul (4.0); Lymphocyte % 7.7 % (19-41); Mean Corp Hgb Conc 31.9 g/dL (32-36); Mean Corpuscular Hgb 29.9 pg (27.0-32.0); Mean Corpuscular Volume 93.6 fL (80-94); Mean Platelet Vol. 10.9 fl (6.2-12.0); Monocyte# 1.26 X10^3/uL; Monocyte% 17.5 % (0-10); NRBC Flagged by Analyzer 0 % (0-5); Neutrophil % 73.8 % (47-70); POSITIVE COUNT YES; POSITIVE DIFFERENTIAL YES; Platelet Count 98 K/mm3 (150-450); RBC Distribution Width CV 13.8 % (11.6-14.6); RBC Distribution Width SD 47.6 fl (35.1-43.9); Red Blood Count 4.05 M/mm3 (4.6-6.2); White Blood Count 7.2 K/mm3 (4.4-11.0)
--- NOTE | 2019-12-30 07:57 | PN_ITS ---
Patient Problems: Active and Suspected Problems (Last Updated 12/29/19 @ 01:[address] Tu Munroe MD) Fever (Acute) Subjective: Day #2 Unasyn Mr. Caceres was seen in conjunction with VALERIE Joshi and we have discussed management. Orders have been written. T-max over the past 24 hours is 101.6 and the temp today is 99.1. Blood pressure is well controlled Heart rate is within normal limits He is maintaining appropriate oxygen saturation on room air Medication list was reviewed. 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 Urine culture is pending. All lab was personally reviewed. The white blood cell count has decreased from 9.2-7.2 and the left shift has improved and today he only has 74% neutrophils. BMP is unremarkable. Creatinine is improving and is 0.9 today. Calcium corrected for hypoalbuminemia is within normal limits. Denies shortness of breath, cough, dysuria, abdominal pain, chest pain. He tells me his stool was loose today. He also tells me that at times he has constipation and he has to strain to have a bowel movement. He does not know if he has ever had diverticulosis. He denies abdominal pain now. He has never had a CT scan of the abd and pelvis at [facility] and has also not had a colonoscopy. BS's are elevated but, the HGBA1C is 5.6% and he has no hx of DM II? Could be due to infection. Urine culture had no growth. Alert, oriented x3, no apparent distress, states he feels well, no more rigors Lungs-clear to auscultation throughout Heart-regular rate and rhythm, no gallop Abdomen-soft, no guarding with palpation, normal bowel sounds present, nondistended No peripheral edema No rashes - Physical Exam Vitals/I&O's: Vital Signs Temp Pulse Resp BP Pulse Ox 99.1 F 72 16 110/62 91 12/30/19 03:00 12/30/19 03:00 12/30/19 03:00 12/30/19 03:00 12/30/19 07:30 Oxygen Delivery Method Room Air Weight: 192 lb 0.362 oz Body Mass Index (BMI) 30.0 Intake and Output for Last 24 Hours 12/28/19 12/29/19 12/30/19 23:59 23:59 23:59 Intake Total 500 / 500 3024 / 3264 764 / 764 Balance 500 / 500 3024 / 3264 764 / 764 Microbiology Past 72 Hours 12/29/19 02:35 Blood Culture (Wb) - Arm Right Blood Culture - 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 12/28/19 22:15 Mucosa - Nasopharyngeal Coronavirus COVID-19 PCR - Final Laboratory Results 12/28/19 19:35: Diff Path Review Reviewed 12/29/19 02:35: Phosphorus 2.6, Magnesium 2.2 12/29/19 10:52: POC Glucose 139 H 12/29/19 16:21: POC Glucose 146 H 12/29/19 21:12: POC Glucose 138 H 12/30/19 06:49: POC Glucose 112 H 12/30/19 07:12: WBC Pending, RBC Pending, Hgb Pending, Hct Pending, MCV Pending, MCH Pending, MCHC Pending, RDW Std Deviation Pending, RDW Coeff of Michael Pending, Plt Count Pending, Neut % (Auto) Pending, Absolute Neuts (auto) Pending 12/30/19 07:12: Sodium Pending, Potassium Pending, Chloride Pending, Carbon Dioxide Pending, Anion Gap Pending, BUN Pending, Creatinine Pending, Est GFR (MDRD) Af Amer Pending, Est GFR (MDRD) Non-Af Pending, BUN/Creatinine Ratio Pending, Glucose Pending, Calcium Pending, Total Bilirubin Pending, AST Pending, ALT Pending, Alkaline Phosphatase Pending, Total Protein Pending, Albumin Pending Current Medications Acetaminophen (Tylenol) 650 mg PO Q6H PRN PRN PRN Reason: Pain Score 1-10/Temp > 100.7 F Last Admin: 12/29/19 13:51 Dose: 650 mg Documented by: Albuterol Sulfate (Ventolin Aerosols) 2.5 mg INHALATION Q4H PRN PRN PRN Reason: Shortness of breath, wheezing Atorvastatin Calcium (Lipitor) 10 mg PO DAILY@2200 [facility] Last Admin: 12/29/19 21:55 Dose: 10 mg Documented by: Dextrose (D50w Syringe) 0 gm IV X1 PRN; Protocol PRN Reason: Hypoglycemia Duloxetine HCl (Cymbalta) 60 mg PO DAILY [facility] Last Admin: 12/29/19 09:25 Dose: 60 mg Documented by: Enoxaparin Sodium (Lovenox) 40 mg SC DAILY [facility] Last Admin: 12/29/19 09:25 Dose: 40 mg Documented by: Glucagon () 1 mg IM .X1 PRN PRN Reason: Hypoglycemia Sodium Chloride () 250 mls @ 15 mls/hr IV .[id number] PRN PRN Reason: Saline Flush Ampicillin Sodium/Sulbactam (Sodium 3 gm/ Sodium Chloride) 112 mls @ 150 mls/hr IV Q6 [facility] Last Infusion: 12/30/19 05:55 Dose: Infused Documented by: Insulin Human Lispro (Humalog Kwikpen (Bkc)) 0 unit SC ACHS [facility]; Protocol Last Admin: 12/30/19 06:52 Dose: Not Given Documented by: Magnesium Oxide (Mag-Ox 400) 200 mg PO DAILY [facility] Last Admin: 12/29/19 09:25 Dose: 200 mg Documented by: Metoprolol Succinate (Toprol Xl (Beta Johan)) 50 mg PO QHS [facility] Last Admin: 12/29/19 21:55 Dose: 50 mg Documented by: Ondansetron HCl (Zofran) 4 mg IV Q8H PRN PRN PRN Reason: NAUSEA/VOMITING Pregabalin (Lyrica) 50 mg PO BID [facility] Last Admin: 12/29/19 21:59 Dose: 50 mg Documented by: Senna/Docusate Sodium (Senokot-S, Arpita-Colace) 2 tablet PO BID PRN PRN PRN Reason: Constipation Sodium Chloride () 10 - 40 ml IV UD PRN PRN Reason: SALINE FLUSH Last Admin: 12/29/19 10:25 Dose: 10 ml Documented by: Tamsulosin HCl (Flomax) 0.4 mg PO DAILY [facility] Last Admin: 12/29/19 09:27 Dose: Not Given Documented by: Zolpidem Tartrate (Ambien (Generic)) 5 mg PO QHS PRN PRN PRN Reason: INSOMNIA Last Admin: 12/29/19 21:55 Dose: 5 mg Documented by: Medical Necessity - Tobacco Use Smoking Status: Former smoker Assessment/Plan All Active Problems (Last Updated 12/29/19 @ 01:[address] Tu Munroe MD) Fever (Acute) Impressions 1. Fever of unknown origin with gram-negative bacteremia - suspect abd origin 2. Hypokalemia-resolved with supplementation. 3. Borderline hypotension with an MAP of 66 on the morning of admission This has resolved with IV fluids but will continue IV fluids since he is having an a CT scan of the abdomen and pelvis with contrast. 4. Hyperglycemia with a normal hemoglobin A1c 5. BPH 6. Hypertension 7. Hyperlipidemia Continue Unasyn. He has GM neg bacteremia but I do not know the source of the infection.....it is not the urine and the CXR shows no infiltrates. He has to strain to have a BM at times so diverticulitis or translocation of bacteria is a possibility. with th GM negative bacteremia I am suspicious that the origin of the infection is in the abd or prostate. CT scan of the abd and pelvis today. Await the final on the blood culture to consider DC. DC the accuchecks and the SSI Recheck lab in the a.m.
[2019-12-30 08:05] LABS: Differential Indicated SCAN CRITERIA MET
[2019-12-30 08:32] LABS: Platelet Estimate SLT DEC (ADEQ)
[2019-12-30 08:33] LABS: ALB/GLOB Ratio 0.9 RATIO (0.9-2.4); AST(SGOT) 44 U/L (15-37); Alanine Aminotransfer ALT/SGPT 41 U/L (16-61); Albumin, Serum 2.7 g/dL (3.2-5.0); Alkaline Phosphatase 67 U/L (45-117); Anion Gap 7 (5-15); BUN 11 mg/dL (7-18); BUN/Creat Ratio 12.2 RATIO (10-20); Calcium,Total 7.9 mg/dL (8.5-10.1); Chloride 106 mmol/L (98-107); EST Glomerular Filtration Rate 86 mL/min (>60); Est Glom Filt Rate - Afr Amer 104 mL/min (>60); Estimated Creatinine Clearance 60.18 ml/min; Globulin 3.1 g/dL (2.2-4.2); Glucose 111 mg/dL (74-106); Potassium 3.6 mmol/L (3.5-5.1); Protein, Total 5.8 g/dL (6.4-8.2); Sodium Level 138 mmol/L (136-145)
[2019-12-30] MEDS: Pregabalin 50 MG Capsule PO ×2 (10:00→22:12)
[2019-12-30] MEDS: Magnesium Oxide 400 MG Tablet 200 MG PO (10:00)
[2019-12-30] MEDS: Tamsulosin HCl 0.4 MG Capsule PO (10:00)
[2019-12-30] MEDS: Enoxaparin 40 MG/0.4 ML Syringe SC (10:00)
[2019-12-30] MEDS: DULoxetine Hcl 60 MG Capsule PO (10:00)
--- NOTE | 2019-12-30 10:55 | NURSING ---
Call placed to daughter Evelyn, update given to daughter and .
[2019-12-30 12:01] LABS: Bedside Glucose 133 mg/dL (70-110)
[2019-12-30] MEDS: Acetaminophen 325 MG Tablet 650 MG PO (13:05)
--- NOTE | 2019-12-30 14:11 | PN_ITS ---
Patient Problems: Active and Suspected Problems (Last Updated 12/29/19 @ 01:[address] Tu Munroe MD) Fever (Acute) Reason for Visit: Fever Subjective: Pt resting comfortably in bed with no complaints. Sleepy but easily roused. No fever/chills. No SOB/cp/cough. Pt denies wounds on his body. He denies Nausea/vomiting/diarrhea. He denies dysuria. Vitals/I&O's: Vital Signs Temp Pulse Resp BP Pulse Ox 98.5 F 62 18 110/73 94 12/30/19 08:01 12/30/19 08:08 12/30/19 08:01 12/30/19 08:01 12/30/19 08:01 Oxygen Delivery Method Room Air Weight: 192 lb 0.362 oz Body Mass Index (BMI) 30.0 Intake and Output for Last 24 Hours 12/28/19 12/29/19 12/30/19 23:59 23:59 23:59 Intake Total 500 / 500 3024 / 3264 1876 / 1876 Balance 500 / 500 3024 / 3264 1875 / 187 General: Alert, Oriented x3, Cooperative HEENT: Atraumatic, PERRLA, EOMI, Normocephalic Neck: Supple, No JVD, Negative Carotid Bruits Lungs: Clear to auscultation, Normal air movement Cardiovascular: Regular rate, No murmurs Abdomen: Bowel Sounds Present, Soft, Non Tender Extremities: No edema, Capillary Refill Less than 3 Seconds Skin: No rashes, No breakdown Musculoskeletal: No Tenderness to Palpation of Joints or Extremities Neurological: Cranial nerves II-XII grossly intact Psych/Mental Status: Normal Affect, Appropriate, Alert and oriented to time, place, person, mood and affect Microbiology Past 72 Hours 12/28/19 19:35 Urine, Random Urine Culture - Preliminary Culture exhibits no growth. 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 12/28/19 22:15 Mucosa - Nasopharyngeal Coronavirus COVID-19 PCR - Final Laboratory Results 12/29/19 16:21: POC Glucose 146 H 12/29/19 21:12: POC Glucose 138 H 12/30/19 06:49: POC Glucose 112 H 12/30/19 07:12: WBC 7.2, RBC 4.05 L, Hgb 12.1 L, Hct 37.9 L, MCV 93.6, MCH 29.9, MCHC 31.9 L, RDW Std Deviation 47.6 H, RDW Coeff of Michael 13.8, Plt Count 98 L, MP V 10.9, Immature Gran % (Auto) 0.400, Neut % (Auto) 73.8 H, Lymph % (Auto) 7.7 L , Rooks % (Auto) 17.5 H, Eos % (Auto) 0.3, Baso % (Auto) 0.3, Absolute Neuts (auto) 5.3, Absolute Lymphs (auto) 0.55 L, Nucleated RBC % 0, Differential Comment , Platelet Estimate SLT 12/30/19 07:12: Sodium 138, Potassium 3.6, Chloride 106, Carbon Dioxide 25.0, Anion Gap 7, BUN 11, Creatinine 0.90, Estim Creat Clear Calc 60.18, Est GFR (MDRD) Af Amer 104, Est GFR (MDRD) Non-Af 86, BUN/Creatinine Ratio 12.2, Glucose 111 H, Calcium 7.9 L, Total Bilirubin 0.60, AST 44 H, ALT 41, Alkaline Phosphatase 67, Total Protein 5.8 L, Albumin 2.7 L, Globulin 3.1, Albumin/Globulin Ratio 0.9 12/30/19 11:19: POC Glucose 133 H Current Medications Acetaminophen (Tylenol) 650 mg PO Q6H PRN PRN PRN Reason: Pain Score 1-10/Temp > 100.7 F Last Admin: 12/30/19 13:05 Dose: 650 mg Documented by: Albuterol Sulfate (Ventolin Aerosols) 2.5 mg INHALATION Q4H PRN PRN PRN Reason: Shortness of breath, wheezing Atorvastatin Calcium (Lipitor) 10 mg PO DAILY@2200 [facility] Last Admin: 12/29/19 21:55 Dose: 10 mg Documented by: Dextrose (D50w Syringe) 0 gm IV X1 PRN; Protocol PRN Reason: Hypoglycemia Duloxetine HCl (Cymbalta) 60 mg PO DAILY [facility] Last Admin: 12/30/19 10:00 Dose: 60 mg Documented by: Enoxaparin Sodium (Lovenox) 40 mg SC DAILY [facility] Last Admin: 12/30/19 10:00 Dose: 40 mg Documented by: Glucagon () 1 mg IM .X1 PRN PRN Reason: Hypoglycemia Sodium Chloride () 250 mls @ 15 mls/hr IV .[id number] PRN PRN Reason: Saline Flush Ampicillin Sodium/Sulbactam (Sodium 3 gm/ Sodium Chloride) 112 mls @ 150 mls/hr IV Q6 [facility] Last Infusion: 12/30/19 12:07 Dose: Infused Documented by: Insulin Human Lispro (Humalog Kwikpen (Bkc)) 0 unit SC ACHS [facility]; Protocol Last Admin: 12/30/19 11:21 Dose: Not Given Documented by: Ipratropium [place] (Atrovent Nasal [place] (G)) 2 spray NASAL TID [facility] Last Admin: 12/30/19 13:08 Dose: Not Given Documented by: Magnesium Oxide (Mag-Ox 400) 200 mg PO DAILY [facility] Last Admin: 12/30/19 10:00 Dose: 200 mg Documented by: Metoprolol Succinate (Toprol Xl (Beta Johan)) 50 mg PO QHS [facility] Last Admin: 12/29/19 21:55 Dose: 50 mg Documented by: Ondansetron HCl (Zofran) 4 mg IV Q8H PRN PRN PRN Reason: NAUSEA/VOMITING Pregabalin (Lyrica) 50 mg PO BID [facility] Last Admin: 12/30/19 10:00 Dose: 50 mg Documented by: Senna/Docusate Sodium (Senokot-S, Arpita-Colace) 2 tablet PO BID PRN PRN PRN Reason: Constipation Sodium Chloride () 10 - 40 ml IV UD PRN PRN Reason: SALINE FLUSH Last Admin: 12/29/19 10:25 Dose: 10 ml Documented by: Tamsulosin HCl (Flomax) 0.4 mg PO DAILY [facility] Last Admin: 12/30/19 10:00 Dose: 0.4 mg Documented by: Zolpidem Tartrate (Ambien (Generic)) 5 mg PO QHS PRN PRN PRN Reason: INSOMNIA Last Admin: 12/29/19 21:55 Dose: 5 mg Documented by: Medical Necessity - Tobacco Use Smoking Status: Former smoker Assessment/Plan All Active Problems (Last Updated 12/29/19 @ 01:[address] Tu Munroe MD) Fever (Acute) 1. 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 await final C&S. Unclear source. covid neg. urine culture with no growth. UA neg. CT brain neg. CXR neg. He does not have any specific complaints. No fever so far today. Continue Unasyn. ID consulted. Slightly elevated AST. No WBC elevation. 2. BPH - UA neg. cx neg. Continue flomax 3. Hypotension resolved with fluids. 4. HTN - metoprolol. hctz held. 5. HLD - statin 6. Thrombocytopenia - trend. unclear etiology. DVT ppx: lovenox DC planning: await final C&S. This patient was seen by Ace Hanson PA-C under the supervision of Dr. Guthrie.
--- NOTE | 2019-12-30 14:24 | CT_ITS ---
STUDY: CT ABDOMEN AND PELVIS WITH CONTRAST REASON FOR EXAM: Male, 79 years old. Fever of unknown etiology x 2 days, ? diverticulitis. Hx colon polyps, hypertension. RADIATION DOSAGE (If Supplied By Facility): CTDIvol = ( 26.15 ) mGy, DLP = ( 1136.23 ) mGycm TECHNIQUE: Transaxial images were obtained from the dome of the diaphragm to the symphysis pubis without oral contrast. Oral and amp; IV Gastrografin and amp; 100mL Isovue-300 was administered. Sagittal and coronal images were reconstructed. Individualized dose optimization techniques were used for this CT. COMPARISON: None. FINDINGS: There is mild interstitial thickening at the lung bases. There are very small bilateral effusions and bibasilar atelectasis. The visualized portions of the heart are within normal limits. Liver is fatty infiltrated without mass or bile duct dilatation. Contracted thick-walled gallbladder without calcified stones. There is mild pericholecystic edema possibly due to acute inflammation.. Spleen is normal size. There is a tiny hypoattenuated density within the spleen likely cyst. Normal pancreas. Normal bilateral adrenal glands. Normal right kidney. Normal left kidney. Normal visualized stomach. Normal small intestine. There are diverticular changes throughout the colon. There is focal thickening of the escudero of the sigmoid colon with adjacent stranding in the fat possibly representing mild diverticulitis. The appendix is visualized and appears normal. Atherosclerotic changes of the aorta without evidence for aneurysm. Normal inferior vena cava. Normal retroperitoneum. Nonspecific enlargement of the prostate impinging upon the base of bladder which is incompletely distended. Normal abdominal wall. Lumbar spine demonstrates advanced spondylosis. Postop changes status post bilateral laminectomy at L4-5 L3-4 and L2-3.. CT/Abdomen/Pelvis WITH Contrast IMPRESSION: Diffuse diverticular changes of the colon.. Focal thickening of the escudero of the sigmoid colon with edematous changes in the fat which may be consistent with acute diverticulitis. There is no peridiverticular abscess. There is also thickening of the escudero of the gallbladder which is incompletely distended with mild pericholecystic fluid. Cannot definitively exclude acute cholecystitis.. Ultrasound and possibly HIDA scan would be helpful for further evaluation if clinically warranted Electronically Signed: Agustin Torres MD at 18:53 EDT , Service support ,
[2019-12-30] MEDS: Atorvastatin Calcium 10 MG Tablet PO (22:12)
[2019-12-30] MEDS: Metoprolol(XL)Succ 50 MG Tablet PO (22:15)
[2019-12-30] MEDS: Ipratropium Bromide 0.06% NASAL SPRAY 2 SPRAY NASAL (22:15)
[2019-12-31] MEDS: 0.9% Saline Lock 10 ML Syringe IV ×2 (00:20→05:40)
[2019-12-31] MEDS: Acetaminophen 325 MG Tablet 650 MG PO (00:25)
[2019-12-31] MEDS: Zolpidem Tartrate 5 MG Tablet PO (00:27)
[2019-12-31 02:22] VITALS: BP 133/74; PULSE 62; RESP 18; TEMP 36.9; O2SAT 95
[2019-12-31 06:24] LABS: Absolute Lymphocyte Count 0.76 X10^3/uL (0.83-4.51); Absolute Neutrophil Count 3.8 X10^3/uL (2.0-7.7); Basophil# 0.01 X10^3/uL; Basophil% 0.2 % (0-1); Eosinophil# 0.12 X10^3/uL; Eosinophils% 2.1 % (0-5); Hematocrit 36.6 % (40-54); Hemoglobin 11.8 g/dL (13.0-16.5); Lymphocyte # 0.76 X10^3/ul (4.0); Lymphocyte % 13.5 % (19-41); Mean Corp Hgb Conc 32.2 g/dL (32-36); Mean Corpuscular Hgb 29.5 pg (27.0-32.0); Mean Corpuscular Volume 91.5 fL (80-94); Mean Platelet Vol. 10.7 fl (6.2-12.0); Monocyte# 0.94 X10^3/uL; Monocyte% 16.7 % (0-10); NRBC Flagged by Analyzer 0 % (0-5); Neutrophil # 3.78 X10^3/uL (2.7-7.7); Platelet Count 108 K/mm3 (150-450); RBC Distribution Width CV 13.7 % (11.6-14.6); RBC Distribution Width SD 46.2 fl (35.1-43.9); White Blood Count 5.6 K/mm3 (4.4-11.0)
[2019-12-31] MEDS: Ipratropium Bromide 0.06% NASAL SPRAY 2 SPRAY NASAL (06:36)
[2019-12-31 06:50] VITALS: O2SAT 92
[2019-12-31 07:00] LABS: ALB/GLOB Ratio 0.8 RATIO (0.9-2.4); AST(SGOT) 43 U/L (15-37); Alanine Aminotransfer ALT/SGPT 47 U/L (16-61); Albumin, Serum 2.5 g/dL (3.2-5.0); Alkaline Phosphatase 66 U/L (45-117); Anion Gap 3 (5-15); BUN 10 mg/dL (7-18); BUN/Creat Ratio 12.2 RATIO (10-20); Calcium,Total 8.2 mg/dL (8.5-10.1); Chloride 108 mmol/L (98-107); Creatinine, Serum 0.82 mg/dL (0.70-1.30); EST Glomerular Filtration Rate 95 mL/min (>60); Est Glom Filt Rate - Afr Amer 115 mL/min (>60); Estimated Creatinine Clearance 66.06 ml/min; Globulin 3.1 g/dL (2.2-4.2); Glucose 102 mg/dL (74-106); Potassium 3.8 mmol/L (3.5-5.1); Protein, Total 5.6 g/dL (6.4-8.2); Sodium Level 139 mmol/L (136-145)
[2019-12-31 09:25] VITALS: BP 128/70; PULSE 60; RESP 18; TEMP 36.4; O2SAT 100
[2019-12-31] MEDS: Pregabalin 50 MG Capsule PO (09:26)
[2019-12-31] MEDS: Tamsulosin HCl 0.4 MG Capsule PO (09:26)
[2019-12-31] MEDS: Magnesium Oxide 400 MG Tablet 200 MG PO (09:27)
[2019-12-31] MEDS: Enoxaparin 40 MG/0.4 ML Syringe SC (09:27)
[2019-12-31] MEDS: DULoxetine Hcl 60 MG Capsule PO (09:27)
--- NOTE | 2019-12-31 09:58 | DCINST_ITS ---
- Discharge Diagnoses Current Active Problems: Current Active and Chronic Problems (Last Updated 12/29/19 @ 01:[address] Tu Munroe MD) Fever (Acute) Benign prostatic hyperplasia (Chronic) Depression (Chronic) You will use the following diet at home:: Cardiac Your food should be the consistency of: Regular Your liquids should be the consistency of: Regular/Thin Discharge Activity: Return to Normal Activity Allergies/Adverse Reactions: Allergies diazepam [From Valium] Adverse Reaction (Verified 12/28/19 18:54) Unknown Medications to take at Discharge Calcium Carbonate [Calcium] 600 mg PO DAILY 07/29/18 Cholecalciferol (Vitamin D3) [Vitamin D3] 4,000 unit PO DAILY 07/29/18 Cyanocobalamin (Vitamin B-12) [Vitamin B-12] 1,000 mcg PO DAILY 07/29/18 Duloxetine Hcl [Cymbalta] 60 mg PO DAILY 07/29/18 Magnesium Oxide [Magnesium] 250 mg PO DAILY 07/29/18 Multivitamin [Multiple Vitamins] 1 ea PO DAILY 07/29/18 Psyllium Husk (with Sugar) [Metamucil Packet] 3.4 gm PO DAILY 07/29/18 Tamsulosin HCl [Flomax] 0.4 mg PO DAILY 07/29/18 pregabalin 50 mg capsule 50 mg PO BID cap 08/16/19 hydrochlorothiazide 12.5 mg tablet 12.5 mg PO DAILY #90 tab 09/08/19 metoprolol succinate 50 mg tablet,extended release 24 hr 50 mg PO QHS #90 tab 09/08/19 atorvastatin 10 mg tablet 10 mg PO DAILY #90 tab 10/19/19 Acetaminophen [Tylenol Tablet] 650 mg PO Q6H PRN PRN tab 12/31/19 Cefadroxil Hydrate [Duricef] 1,000 mg PO BID #48 cap 12/31/19 Lactobacillus Acidophilus [Acidophilus] 1 ea PO TID #30 cap 12/31/19 The following prescriptions were given: Lactobacillus Acidophilus [Acidophilus] 1 ea PO TID #30 cap Transmission Status: Pending to [id number] Cefadroxil Hydrate [Duricef] 1,000 mg PO BID #48 cap Transmission Status: Pending to [id number] Primary Care Physician: Christine Jimenez DO [Primary Care Provider] - Please follow up with your Primary Care Physician in: 1-2 weeks Test Results: Test results from this visit will be discussed in further detail at your follow- up appointment, if applicable. Proposed Discharge Date: 12/31/19
--- NOTE | 2019-12-31 12:19 | NURSING ---
spoke to jannet, discharge instructions given
--- NOTE | 2019-12-31 13:56 | DS.PCM_ITS ---
Discharge Date and Diagnosis Date of Admission: 12/28/19 Date of Discharge: 12/31/19 - Primary Discharge Diagnosis Acute Problems: E coli bacteremia 2/2 acute diverticulitis of the sigmoid colon BPH HTN HLD Depression - Secondary Discharge Diagnosis Chronic Problems: Chronic Problems (Last Updated 12/29/19 @ 01:[address] Tu Munroe MD) Benign prostatic hyperplasia (Chronic) Depression (Chronic) Essential (primary) hypertension (Chronic) Hyperlipidemia (Chronic) Aortic root dilatation (Chronic) Hospital Course and Treatment Imaging Results: CT/Abdomen/Pelvis WITH Contrast IMPRESSION: Diffuse diverticular changes of the colon.. Focal thickening of the escudero of the sigmoid colon with edematous changes in the fat which may be consistent with acute diverticulitis. There is no peridiverticular abscess. There is also thickening of the escudero of the gallbladder which is incompletely distended with mild pericholecystic fluid. Cannot definitively exclude acute cholecystitis.. Ultrasound and possibly HIDA scan would be helpful for further evaluation if clinically warranted RAD/Chest 1 View (Portable) IMPRESSION: No acute pulmonary findings. CT/Brain/Head without Contrast IMPRESSION: No acute intracranial process. Consults: Georgina DICKENS Operations: None Procedures: None Summary of Care Provided: Hospital Course: The patient is a 79 year old M with past medical history of above who reported to the emergency room from home for fever and confusion. His fever began the day prior to presentation reportedly was up to 102.7 degrees at home. His reported that he had been confused as well. He was brought to the emergency room and found to have no fever, negative chest x-ray, negative CT of the brain. He was admitted for fever of unknown etiology and given IV fluids and potassium replacement. Overnight he did develop a fever T-max of 101.6. His blood culture became positive for E. coli. He did not have any specific symptoms indicating infection. A CT of the abdomen was obtained which demonstrated si gmoid diverticulitis, despite his lack of GI complaints. He was treated with IV Unasyn and transitioned to a total of 14 days of therapy with Duricef. The E. coli was pansensitive. Repeat blood cultures are pending at this time. His fevers resolved. He was discharged home in stable condition. He will need follow-up with his PCP in 1 to 2 weeks. This patient was seen by Ace Hanson PA-C under the supervision of Doctor Jerri. [] - Physical Exam Vitals/I&O's: Vital Signs Temp Pulse Resp BP Pulse Ox 97.5 F L 60 18 128/70 H 100 12/31/19 09:25 12/31/19 09:25 12/31/19 09:25 12/31/19 09:25 12/31/19 09:25 Oxygen Delivery Method Room Air Weight: 192 lb 0.362 oz Body Mass Index (BMI) 30.0 Intake and Output for Last 24 Hours 12/29/19 12/30/19 12/31/19 23:59 23:59 23:59 Intake Total 3024 / 3264 2588 / 2588 636 / 636 Balance 3024 / 3264 2588 / 2588 636 / 636 General: Alert, Oriented x3, Cooperative HEENT: Atraumatic, PERRLA, EOMI, Normocephalic Neck: Supple, No JVD, Negative Carotid Bruits Lungs: Clear to auscultation, Normal air movement Cardiovascular: Regular rate, No murmurs Abdomen: Bowel Sounds Present, Soft, Non Tender Extremities: No edema, Capillary Refill Less than 3 Seconds Skin: No rashes, No breakdown Musculoskeletal: No Tenderness to Palpation of Joints or Extremities Neurological: Cranial nerves II-XII grossly intact Psych/Mental Status: Normal Affect, Appropriate, Alert and oriented to time, place, person, mood and affect Microbiology Past 72 Hours 12/28/19 19:35 Urine, Random Urine Culture - Final Culture exhibits no growth. 12/29/19 02:35 Blood Culture (Wb) - Arm Right Blood Culture - Preliminary Escherichia coli 12/28/19 22:15 Mucosa - Nasopharyngeal Coronavirus COVID-19 PCR - Final Laboratory Results 12/31/19 06:02: WBC 5.6, RBC 4.00 L, Hgb 11.8 L, Hct 36.6 L, MCV 91.5, MCH 29.5, MCHC 32.2, RDW Std Deviation 46.2 H, RDW Coeff of Michael 13.7, Plt Count 108 L, MPV 10.7, Immature Gran % (Auto) 0.500, Neut % (Auto) 67.0, Lymph % (Auto) 13.5 L, [place] % (Auto) 16.7 H, Eos % (Auto) 2.1, Baso % (Auto) 0.2, Absolute Neuts (auto) 3.8, Absolute Lymphs (auto) 0.76 L, Nucleated RBC % 0 12/31/19 06:02: Sodium 139, Potassium 3.8, Chloride 108 H, Carbon Dioxide 28.0, Anion Gap 3 L, BUN 10, Creatinine 0.82, Estim Creat Clear Calc 66.06, Est GFR (MDRD) Af Amer 115, Est GFR (MDRD) Non-Af 95, BUN/Creatinine Ratio 12.2, Glucose 102, Calcium 8.2 L, Total Bilirubin 0.50, AST 43 H, ALT 47, Alkaline Phosphatase 66, Total Protein 5.6 L, Albumin 2.5 L, Globulin 3.1, Albumin/Globulin Ratio 0.8 L Discharge Diet: Low fat/ Low Cholesterol, 2000 mg Sodium Diet Discharge Activity: Return to Normal Activity Home Medications: Medications to take at Discharge Calcium Carbonate [Calcium] 600 mg PO DAILY 07/29/18 Cholecalciferol (Vitamin D3) [Vitamin D3] 4,000 unit PO DAILY 07/29/18 Cyanocobalamin (Vitamin B-12) [Vitamin B-12] 1,000 mcg PO DAILY 07/29/18 Duloxetine Hcl [Cymbalta] 60 mg PO DAILY 07/29/18 Magnesium Oxide [Magnesium] 250 mg PO DAILY 07/29/18 Multivitamin [Multiple Vitamins] 1 ea PO DAILY 07/29/18 Psyllium Husk (with Sugar) [Metamucil Packet] 3.4 gm PO DAILY 07/29/18 Tamsulosin HCl [Flomax] 0.4 mg PO DAILY 07/29/18 pregabalin 50 mg capsule 50 mg PO BID cap 08/16/19 hydrochlorothiazide 12.5 mg tablet 12.5 mg PO DAILY #90 tab 09/08/19 metoprolol succinate 50 mg tablet,extended release 24 hr 50 mg PO QHS #90 tab 09/08/19 atorvastatin 10 mg tablet 10 mg PO DAILY #90 tab 10/19/19 Acetaminophen [Tylenol Tablet] 650 mg PO Q6H PRN PRN tab 12/31/19 Cefadroxil Hydrate [Duricef] 1,000 mg PO BID #48 cap 12/31/19 Lactobacillus Acidophilus [Acidophilus] 1 ea PO TID #30 cap 12/31/19 Following Prescrptions Were Given to Patient: Lactobacillus Acidophilus [Acidophilus] 1 ea PO TID #30 cap [id number] Cefadroxil Hydrate [Duricef] 1,000 mg PO BID #48 cap Transmission Status: [id number] Primary Care Physician: Christine Jimenez DO [Primary Care Provider] - Please follow up with your Primary Care Physician in: 1-2 weeks Disposition: Home Minutes spent on discharge:: 35 Patient Condition:: Stable Medical Necessity - Tobacco Use Smoking Status: Former smoker Meaningful Use Info Meaningful Use Diagnoses (Choose all that apply): None applicable
== END 2019-12-31 12:38 | disposition home or self-care (01) | DRG 392 ==
LOC: ED 23:26 → MS3 12-29 01:06
PROVIDERS: Physician Assistant; Admitting Provider Hospitalist; Emergency Provider Emergency Medicine; Visit Provider Internal Medicine
DX: K57.32 Diverticulitis of large intestine without perforation or abscess without bleeding (principal); T67.01XA Heatstroke and sunstroke, initial encounter; R78.81 Bacteremia; D69.6 Thrombocytopenia, unspecified; B96.20 Unspecified Escherichia coli [E. coli] as the cause of diseases classified elsewhere; N40.0 Benign prostatic hyperplasia without lower urinary tract symptoms; F32.9 Major depressive disorder, single episode, unspecified; I10 Essential (primary) hypertension; E78.5 Hyperlipidemia, unspecified; I77.810 Thoracic aortic ectasia; E87.6 Hypokalemia; E11.65 Type 2 diabetes mellitus with hyperglycemia; Z87.891 Personal history of nicotine dependence; Z83.3 Family history of diabetes mellitus; Z82.49 Family history of ischemic heart disease and other diseases of the circulatory system; Z85.828 Personal history of other malignant neoplasm of skin; T50.2X5A Adverse effect of carbonic-anhydrase inhibitors, benzothiadiazides and other diuretics, initial encounter; X30.XXXA Exposure to excessive natural heat, initial encounter
CPT/HCPCS: 36415; 70450; 71045; 74177; 80048; 80053; 81001; 82962; 83036; 83605; 83735; 84100; 84484; 85025; 87040; 87077; 87086; 87186; 87635; 93005; 97162; 97165; 99251; 99285; G2023; J7030; J7040; Q9967; A4216; G0463; J0295; U0004

== ENCOUNTER 2022-07-03 10:55 | Day surgery (SDC) | payer MEDICARE, SELFPAY ==
--- NOTE | 2022-07-02 16:09 | HP_ITS ---
Intake Vital Signs 06/12/22 14:57 Height 5 ft 8 in Weight: 194 lb 6 oz BMI 29.5 Body Surface Area 2.02 BP 122/67 H Blood Pressure Location Lt brachial Position Sitting Respiration 16 Pulse 72 Pulse Source Monitor Temp 97.3 F L Temp Source Temporal Pulse Oximetry (%) 94 Oxygen Delivery Method room air Intake Visit Reasons: evaluation for TBSE Sanitary Aide Required: No Accompanied by: Daughter Is patient in pain?: No Allergies diazepam [From Valium] Adverse Reaction (Verified 06/12/22 14:56) Unknown Medications calcium carbonate 600 mg calcium (1,500 mg) tablet 600 mg PO DAILY 07/29/18 [History Confirmed 06/12/22] cholecalciferol (vitamin D3) 100 mcg (4,000 unit) capsule 4,000 unit PO DAILY 07/29/18 [History Confirmed 06/12/22] cyanocobalamin (vitamin B-12) 250 mcg tablet 1,000 mcg PO DAILY 07/29/18 [History Confirmed 06/12/22] duloxetine 60 mg capsule,delayed release 60 mg PO DAILY 07/29/18 [History Confirmed 06/12/22] multivitamin 1 ea PO DAILY 07/29/18 [History Confirmed 06/12/22] psyllium husk (with sugar) 3.4 gram oral powder packet 3.4 g PO DAILY 07/29/18 [History Confirmed 06/12/22] tamsulosin 0.4 mg capsule 0.4 mg PO DAILY 07/29/18 [History Confirmed 06/12/22] pregabalin 50 mg capsule 50 mg PO BID 08/16/19 [History Confirmed 06/12/22] Lactobacillus acidophilus 1 ea PO TID #30 caps 12/31/19 [Rx Confirmed 06/12/22] acetaminophen 325 mg tablet 650 mg PO Q6H PRN PRN Pain Score 1-10/Temp > 100.7 F 12/31/19 [Rx Confirmed 06/12/22] magnesium oxide 250 mg PO DAILY 10/04/20 [History Confirmed 06/12/22] hydrochlorothiazide 12.5 mg tablet 12.5 mg PO DAILY #90 tabs 10/27/21 [Rx Confirmed 06/12/22] atorvastatin 10 mg tablet 10 mg PO DAILY #90 tabs 10/31/21 [Rx Confirmed 06/12/22] metoprolol succinate 50 mg tablet,extended release 24 hr 50 mg PO QHS #90 tabs 12/19/21 [Rx Confirmed 06/12/22] [facility] Medical History (Updated 06/14/22 @ 23:[address] Brian Hook MD) Allergies Aortic root dilatation Basal cell carcinoma (BCC) Benign prostatic hyperplasia BPH (benign prostatic hyperplasia) DDD (degenerative disc disease), lumbosacral Depression Essential (primary) hypertension Former smoker Hearing problem Hyperlipidemia Neoplasm of skin of back Neoplasm of skin of left lateral forehead Neuropathy Nonrheumatic aortic (valve) insufficiency Nonrheumatic mitral (valve) insufficiency Obesity Peripheral neuropathy Personal history of skin cancer Primary osteoarthritis of left hip Radiculopathy of lumbosacral region Seborrheic keratoses, inflamed Spinal stenosis of lumbosacral region Surgical History H/O basal cell carcinoma excision (08/2019) History of back surgery History of pancreatic surgery History of shoulder replacement Family History Mother Myocardial infarction Diabetes Asthma COPD (chronic obstructive pulmonary disease) Brother Leukemia Other Heart disease Social History household members: children housing: house number of children: 2 current occupational status: retired Smoking Status: Former smoker alcohol intake: never substance use type: does not use do you feel safe at home: Yes additional social history: Does Not Take Aspirin Does Not Take Ibuprofen HPI evaluation for TBSE Details: HISTORY OF PRESENT ILLNESS 82 year old man presents for evaluation for TBSE. He has concerns about lesions on his right lateral cheek, left forehead above the eyebrow, sternal area, lower sternal area, right middle medial back, and left upper medial back that have increased in size over the last several months and have developed irregular borders. He denies fever. He denies trauma. He denies bleeding. He has had a skin cancer removed from his nose in 2017. He also has scattered areas of tannish discoloration on his ears bilaterally in the superior helical rim area. Denies any crusting. Looks actinic in nature. REVIEW OF SYSTEMS General - Denies fever, fatigue, and weight loss. Eyes - Denies cataracts and glaucoma. ENT - Denies nasal congestion and sore throat. Has chronic sinusitis. Endocrine - Denies excessive thirst and urination. Skin - Has personal history of skin cancer. Has enlarging lesions right lateral cheek, left forehead above the eyebrow, sternal area, lower sternal area, right middle medial back, and left upper medial back. Has scattered areas of actinic damage superior helical rims bilateral ears. Musculoskeletal - Has joint pain, weakness of muscles and joints, back pain. Denies stiffness and arthritis. Neuro - Denies headaches. Cardiovascular - Denies chest pain, fatigue, and shortness of breath with exertion. Psych - Denies anxiety and depression. Respiratory - Denies chronic cough and shortness of breath. Patient is a former smoker. Gastrointestinal - Denies nausea, vomiting, diarrhea, and constipation. Hematologic - Denies abnormal bruising and bleeding. Genitourinary - Denies hematuria and urinary frequency. Has incontinence. PHYSICAL EXAMINATION General - Alert and Oriented. HEENT - PERRL. EOMI. Throat is clear. On the right lateral cheek is a lesion with a nodular center and irregular borders. Measures 7 mm. No ulceration. Lesion is nontender. On the left forehead above the eyebrow is a pigmented lesion. Measures 2 mm. Has irregular borders. Lesion is flat. No ulceration. Lesion is nontender. On superior helical rim bilateral ears are scattered areas of tannish discoloration. The areas of discoloration are flat. Looks actinic in nature. No crusting. No other suspicious lesions noted. Neck - Supple and nontender. No cervical adenopathy. No suspicious lesions noted. Chest wall - On the upper sternal area is a pigmented lesion with an area of darker pigmentation in the center. Measures 5 mm. Has irregular borders. No ulceration. Lesion is nontender. On the lower sternal area is a lesion with regular borders. Measures 8 mm. Looks like benign keratosis at this time. No ulceration. Lesion is nontender. No other suspicious lesions noted. Lungs - Clear to auscultation. Heart - Regular rate and rhythm. Abdomen - Soft and nondistended. Extremities - FROM. No axillary adenopathy. Radial pulses are palpable. No suspicious lesions noted. Back - On the right middle medial back is an oblique erythematous lesion that measures 1.3 cm. Has irregular borders. No ulceration. Lesion is nontender. On the left upper medial back is a lesion with regular borders. Measures 8 mm. Looks like benign keratosis at this time. No ulceration. Lesion is nontender. No other suspicious lesions noted. Neuro - CN II-XII grossly intact. Psych - Normal mood and affect. ASSESSMENT 1. 7 mm lesion right lateral cheek. 2. 2 mm pigmented lesion left forehead above the eyebrow. 3. 5 mm pigmented lesion upper sternal area. 4. 8 mm benign keratosis lower sternal area. 5. 8 mm benign keratosis left upper medial back. 6. 1.3 cm erythematous lesion right middle medial back. 7. Scattered areas of actinic damage superior helical rims bilateral ears. 8. Personal history of skin cancer. PLAN Patient has multiple lesions (right lateral cheek, right middle medial back, left forehead above the eyebrow, and upper sternal area) that have increased in size over the last several months and have developed irregular borders. Recommend excision of these lesions and send them to Pathology for analysis to rule out carcinoma. If carcinoma is present, then further excision will be done with skin flap or skin graft reconstruction. There are lesions lower sternal area and left upper medial back that are consistent with benign keratoses and can safely be observed at this time. If any changes occur, then will need to have these lesions excised and sent to Pathology for analysis to rule out carcinoma. He has scattered areas of actinic damage superior helical rims bilateral ears. Will apply Aldara cream therapy to the bilateral ears daily at night 5 days per week for 6 weeks. Then would followup in 2 months for a re-evaluation. The surgery will be done on an outpatient basis under local anesthesia and IV sedation. Patient was informed of the risks and complications of the procedure including alternatives to surgery. These were discussed with the patient personally. Patient voices understanding and wishes to proceed. Some of the risks and complications were included in a form from the [employer]. Coding Level of Care Code Off vis,new,level 3 Diagnoses Neoplasm of skin of right cheek D49.2 Neoplasm of skin of left lateral forehead D49.2 Neoplasm of skin of sternum D49.2 Neoplasm of skin of back D49.2 Seborrheic keratoses, inflamed L82.0 Personal history of skin cancer Z85.828 Actinic keratosis L57.0 Former smoker Z87.891 Assessment and Plan (No Qualifiers) Assessment and Plan (1) Neoplasm of skin of right cheek: Status: Chronic Comment: 7 mm lesion right lateral cheek (2) Neoplasm of skin of left lateral forehead: Status: Chronic Comment: 2 mm pigmented lesion left forehead above the eyebrow (3) Neoplasm of skin of sternum: Status: Chronic Comment: 5 mm pigmented lesion upper sternum (4) Neoplasm of skin of back: Status: Chronic Comment: 1.3 cm erythematous lesion right middle medial back (5) Seborrheic keratoses, inflamed: Status: Chronic Comment: 8 mm benign keratosis lower sternum 8 mm benign keratosis left upper medial back (6) Personal history of skin cancer: Status: Chronic (7) Actinic keratosis: Status: Chronic Comment: scattered actinic damage superior helical rim bilateral ears (8) Former smoker: Status: Chronic UPDATE Since the dictation was done on 07/02/22, there has been no changes to his History & Physical for his elective surgery on 07/03/22.
--- NOTE | 2022-07-02 23:31 | HP.PCM_ITS ---
History and Physical Date of Admission: 07/03/22 HISTORY OF PRESENT ILLNESS 82 year old man presents for evaluation for TBSE.? He has concerns about lesions on his right lateral cheek, left forehead above the eyebrow, sternal area, lower sternal area, right middle medial back, and left upper medial back that have increased in size over the last several months and have developed irregular borders.? He denies fever.? He denies trauma.? He denies bleeding.? He has had a skin cancer removed from his nose in 2017.? He also has scattered areas of tannish discoloration on his ears bilaterally in the superior helical rim area.? Denies any crusting.? Looks actinic in nature.? PAST MEDICAL HISTORY Aortic root dilatation Basal cell carcinoma (BCC) BPH (benign prostatic hyperplasia) DDD (degenerative disc disease), lumbosacral Depression Essential (primary) hypertension Former smoker Hearing problem Hyperlipidemia Neoplasm of skin of back Neoplasm of skin of left lateral forehead Neuropathy Nonrheumatic aortic (valve) insufficiency Nonrheumatic mitral (valve) insufficiency Obesity Peripheral neuropathy Personal history of skin cancer Primary osteoarthritis of left hip Radiculopathy of lumbosacral region Seborrheic keratoses, inflamed Spinal stenosis of lumbosacral region PAST SURGICAL HISTORY basal cell carcinoma excision (08/2019) back surgery pancreatic surgery shoulder replacement ALLERGIES diazepam [From Valium] MEDICATIONS calcium carbonate cholecalciferol (vitamin D3) cyanocobalamin (vitamin B-12) duloxetine multivitamin psyllium husk (with sugar) tamsulosin pregabalin Lactobacillus acidophilus acetaminophen magnesium oxide hydrochlorothiazide atorvastatin metoprolol succinate FAMILY HISTORY Mother - Myocardial infarction, Diabetes, Asthma, COPD (chronic obstructive pulmonary disease) Brother - Leukemia Other - Heart disease SOCIAL HISTORY Smoking Status:? Former smoker alcohol intake:? never substance use type:? does not use REVIEW OF SYSTEMS General - Denies fever, fatigue, and weight loss. Eyes - Denies cataracts and glaucoma. ENT - Denies nasal congestion and sore throat.? Has chronic sinusitis. Endocrine - Denies excessive thirst and urination. Skin - Has personal history of skin cancer.? Has enlarging lesions right lateral cheek, left forehead above the eyebrow, sternal area, lower sternal area, right middle medial back, and left upper medial back.? Has scattered areas of actinic damage superior helical rims bilateral ears. Musculoskeletal - Has joint pain, weakness of muscles and joints, back pain.? Denies stiffness and arthritis. Neuro - Denies headaches. Cardiovascular - Denies chest pain, fatigue, and shortness of breath with exertion. Psych - Denies anxiety and depression. Respiratory - Denies chronic cough and shortness of breath.? Patient is a former smoker. Gastrointestinal - Denies nausea, vomiting, diarrhea, and constipation. Hematologic - Denies abnormal bruising and bleeding. Genitourinary - Denies hematuria and urinary frequency. Has incontinence. PHYSICAL EXAMINATION General - Alert and Oriented. HEENT - PERRL. EOMI.? Throat is clear.? On the right lateral cheek is a lesion with a nodular center and irregular borders. Measures 7 mm.? No ulceration.? Lesion is nontender. On the left forehead above the eyebrow is a pigmented lesion.? Measures 2 mm. ? Has irregular borders. Lesion is flat.? No ulceration.? Lesion is nontender. On superior helical rim bilateral ears are scattered areas of tannish discoloration. The areas of discoloration are flat.? Looks actinic in nature.? No crusting.? No other suspicious lesions noted.? Neck - Supple and nontender.? No cervical adenopathy.? No suspicious lesions noted. Chest wall - On the upper sternal area is a pigmented lesion with an area of darker pigmentation in the center. Measures 5 mm.? Has irregular borders.? No ulceration. Lesion is nontender. On the lower sternal area is a lesion with regular borders.? Measures 8 mm.? Looks like benign keratosis at this time.? No ulceration.? Lesion is nontender.? No other suspicious lesions noted. Lungs - Clear to auscultation. Heart - Regular rate and rhythm. Abdomen - Soft and nondistended. Extremities - FROM. No axillary adenopathy.? Radial pulses are palpable.? No suspicious lesions noted. Back - On the right middle medial back is an oblique erythematous lesion that measures 1.3 cm.? Has irregular borders.? No ulceration.? Lesion is nontender. On the left upper medial back is a lesion with regular borders.? Measures 8 mm.? Looks like benign keratosis at this time.? No ulceration.? Lesion is nontender.? No other suspicious lesions noted. Neuro - CN II-XII grossly intact. Psych - Normal mood and affect. ASSESSMENT 1.? 7 mm lesion right lateral cheek. 2.? 2 mm pigmented lesion left forehead above the eyebrow. 3.? 5 mm pigmented lesion upper sternal area. 4.? 8 mm benign keratosis lower sternal area. 5.? 8 mm benign keratosis left upper medial back. 6.? 1.3 cm erythematous lesion right middle medial back. 7.? Scattered areas of actinic damage superior helical rims bilateral ears. 8.? Personal history of skin cancer. 9. Former smoker. PLAN Patient has multiple lesions (right lateral cheek, right middle medial back, left forehead above the eyebrow, and upper sternal area) that have increased in size over the last several months and have developed irregular borders.? Recommend excision of these lesions and send them to Pathology for analysis to rule out carcinoma.? If carcinoma is present, then further excision will be done with skin flap or skin graft reconstruction.? There are lesions lower sternal area and left upper medial back that are consistent with benign keratoses and can safely be observed at this time.? If any changes occur, then will need to have these lesions excised and sent to Pathology for analysis to rule out carcinoma. He has scattered areas of actinic damage superior helical rims bilateral ears.? Will apply Aldara cream therapy to the bilateral ears daily at night 5 days per week for 6 weeks. Then would followup in 2 months for a re-evaluation. The surgery will be done on an outpatient basis under local anesthesia and IV sedation. Patient was informed of the risks and complications of the procedure including alternatives to surgery.? These were discussed with the patient personally.? Patient voices understanding and wishes to proceed. Some of the risks and complications were included in a form from the [employer]. Assessment & Plan Assessment/Plan (1) Neoplasm of skin of back: (2) Neoplasm of skin of right cheek: (3) Neoplasm of skin of sternum: (4) Actinic keratosis: (5) Seborrheic keratoses, inflamed: (6) Neoplasm of skin of left lateral forehead: (7) Personal history of skin cancer: (8) Former smoker:
[2022-07-03] VITALS (7 sets, daily range): BP systolic 88–118; BP diastolic 41–87; PULSE 72–90; RESP 16–18; TEMP 36.2–36.7; O2SAT 92–100; BMI 37.7
--- NOTE | 2022-07-03 | LES_PTH ---
PATIENT: MIGUEL YOUNG LOC: [facility] [place] U#:[id number] AGE/SX: 82/M ROOM: RE07/03/[address]: Dr. Miguel Hook MD : [id number] BED: DIS: 07/03/2022 SPEC #: [id number] RECD: 07/03/22 14:19 STATUS: OLIVER JOSIE #: [id number] VINICIO: 07/03/22 00:[address]: Miguel Hook DEPT: SURGICAL PATHOLOGY RECD BY: Haylee Ware ENTERED: 07/06/22 07:46 SP TYPE: Lesion OTHR DR: Dr. Christine Jimenez, DO Tissues: A - Skin of face, NOS B - Skin of chest C - Skin of chest D - Skin of face, NOS E - Skin of back, NOS F - Skin of back, NOS Procedures: Frozen Section (charge) Surgery Specimen Level IV HEADER OPERATION: Excision lesion right lateral cheek with frozen section PRE-OP DIAGNOSIS: 7 mm lesion right lateral cheek; 2 mm pigmented lesion left forehead above eyebrow; 5 mm pigmented lesion under sternal area; 8 mm benign keratosis lower sternal area; 8 mm benign keratosis left upper medial back; 1.3 cm erythematous lesion right middle medial back; scattered areas of actinic damage superior helical rims bilateral ears; history of skin cancer TISSUE SUBMITTED: A ? Lesion right lateral cheek, FS, B ? 5 mm pigmented lesion upper sternal area, suture at 12 o?clock, C ? 8 mm benign keratosis lesion lower sternal area, D ? 2 mm pigmented lesion left forehead above eyebrow, suture at 12 o?clock, E ? 1.3 cm erythematous lesion right middle medial back, suture at 12 o?clock, F ? 8 mm benign keratosis lesion left upper medial back FROZEN SECTION DIAGNOSIS Skin lesion of right lateral cheek, shave biopsy: Benign squamous hyperplasia with actinic change. AM:kimberly 07/03/2022 MICROSCOPIC DIAGNOSIS A. Skin lesion of right cheek, shave biopsy: Seborrheic keratosis with actinic change. B. Skin lesion of sternal area, biopsy: Consistent with solar lentigo. Solar elastosis. C. Skin lesion of lower sternal area, shave biopsy: Seborrheic keratosis. D. Skin lesion of left forehead, biopsy: Actinic keratosis, pigmented. Solar elastosis. E. Skin lesion of right middle back, excision: Basal cell carcinoma, superficial, multifocal, completely excised. Solar elastosis and mild actinic change. F. Skin lesion of left upper medial back, shave biopsy: Actinic keratosis, hyperkeratotic type, inflamed. AM:kimberly 07/07/2022 MICROSCOPIC DESCRIPTION Slides are reviewed. GROSS DESCRIPTION A - Received fresh for frozen section consultation labeled with the patient's name is a specimen designated lesion right lateral cheek. The specimen consists of a 5 mm shaved biopsy of skin that has a maximal depth of 1 mm. The specimen is inked, bisected and totally submitted in one block for frozen section consultation. / AM: 07/03/2022 B - Received in fixative is one container labeled with the patient's name and designated 5 mm pigmented lesion upper sternal area, suture at 12 o'clock. The specimen consists of a perrin-white skin ellipse measuring 1.5 x 0.5 cm and up to 0.2 cm in thickness. The specimen is inked as follows: 12 o?clock tip ? yellow, 6 o?clock tip ? green, 3 o?clock margin ? black, 9 o?clock margin ? blue. Multiple hairs are also noted on the surface. The specimen is serially sectioned and submitted entirely in one cassette. / SJ: 07/06/2022 C - Received in fixative is one container labeled with the patient's name and designated 8 mm benign keratosis lesion lower sternal area. The specimen consists of a piece of brown skin measuring 0.8 x 0.5 x 0.1 cm. The specimen is inked, serially sectioned and submitted entirely in one cassette. / SJ: 07/06/2022 D - Received in fixative is one container labeled with the patient's name and designated 2 mm pigmented lesion left forehead above eyebrow, suture at 12 o'clock. The specimen consists of a perrin-white skin ellipse measuring 0.8 x 0.3 x 0.2 cm. The specimen is inked as follows: 12 o?clock margin ? black, 6 o?clock margin ? blue, 3 o?clock tip ? yellow and 9 o?clock tip ? green. The specimen is serially sectioned and submitted entirely in one cassette. / SJ:kimberly 07/06/2022 E - Received in fixative is one container labeled with the patient's name and designated 1.3 cm erythematous lesion right middle medial back, suture at 12 o'clock. The specimen consists of a regina-shaped piece of perrin-white skin measuring 3.5 x 3 cm and up to 1 cm in thickness. The specimen is inked as follows: 12 to 3 o'clock - black, 3 to 6 o'clock - blue, 6 to 9 o'clock ? green, 9 to 12 o'clock ? yellow and deep margin ? red. The specimen is serially sectioned and submitted entirely in four cassettes. / : 07/06/2022 F - Received in fixative is one container labeled with the patient's name and designated 8 mm benign keratosis lesion left upper medial back. The specimen consists of a piece of light brown skin measuring 1 x 0.5 x 0.1 cm. The specimen is inked, serially sectioned and submitted entirely in one cassette. / SJ:kimberly 07/06/2022 TC:0 CPT: 63353 x6, 59579
[2022-07-03] MEDS: Lactated Ringers 1,000 ML 15 ML IV ×2 (11:40→15:00)
[2022-07-03] MEDS: Clindamycin 900 MG/50 ML BAG 75 MG IV (13:48)
[2022-07-03] MEDS: Lidocaine 2% /Epi 1:100 (20ml) 20 ML VIAL (14:12)
[2022-07-03] MEDS: Silver Nitrate (BKC) 1 EACH (15:50)
--- NOTE | 2022-07-03 16:02 | OP.PCM_ITS ---
Problems Associated Problem List Diagnoses (1) Neoplasm of skin of right cheek: (2) Actinic keratosis: (3) Neoplasm of skin of left lateral forehead: (4) Neoplasm of skin of sternum: (5) Seborrheic keratoses, inflamed: (6) Neoplasm of skin of back: (7) Personal history of skin cancer: (8) Former smoker: Report of Operation Date of Procedure: 07/03/22 Pre-Operative Diagnosis: 1. 1.3 cm erythematous lesion right middle medial back. 2. 7 mm lesion right lateral cheek. 3. 2 mm pigmented lesion left forehead above the eyebrow. 4. 5 mm pigmented lesion upper sternal area. 5. 8 mm benign keratosis lower sternal area. 6. 8 mm benign keratosis left upper medial back. 7. Scattered areas of actinic damage superior helical rims bilateral ears. 8. Personal history of skin cancer. 9. Former smoker. Post-Operative Diagnosis: 1. 1.3 cm erythematous lesion right middle medial back. 2. 7 mm actinic keratosis right lateral cheek. 3. 2 mm pigmented lesion left forehead above the eyebrow. 4. 5 mm pigmented lesion upper sternal area. 5. 8 mm benign keratosis lower sternal area. 6. 8 mm benign keratosis left upper medial back. 7. Scattered areas of actinic damage superior helical rims bilateral ears. 8. Personal history of skin cancer. 9. Former smoker. Surgery/Procedure Performed:: 1. Excision 1.3 cm erythematous lesion right middle medial back with rhomboid transposition skin flap reconstruction (12.5 cm2) and 5 cm complex closure. 2. Intradermal excision 7 mm actinic keratosis right lateral cheek. 3. Excision 2 mm pigmented lesion left forehead above the eyebrow with 1.5 cm layered closure. 4. Excision 5 mm pigmented lesion upper sternal area with 2.5 cm layered closure. 5. Intradermal excision 8 mm benign keratosis lower sternal area. 6. Intradermal excision 8 mm benign keratosis left upper medial back. Description of Surgical Findings:: 82 year old man presents for evaluation for TBSE.? He has concerns about lesions on his right lateral cheek, left forehead above the eyebrow, sternal area, lower sternal area, right middle medial back, and left upper medial back that have increased in size over the last several months and have developed irregular borders.? He denies fever.? He denies trauma.? He denies bleeding.? He has had a skin cancer removed from his nose in 2017.? He also has scattered areas of tannish discoloration on his ears bilaterally in the superior helical rim area.? Denies any crusting.? Looks actinic in nature.? Patient was informed of the risks and complications of the procedure including alternatives to surgery. These were discussed with the patient personally. Patient voices understanding and wishes to proceed. Some of the risks and complications were included in a form from the [employer]. Frozen section right lateral cheek - actinic keratosis and no carcinoma seen. I used Shey absorbable hemostat. Reference Number - [id number]. Lot Number - [id number]. Expiration - February 26, 2027. Surgeon: Brian Hook machine stuffer automatic: VINNIE Huston. Type of Anesthesia: General Anesthesiologist: Jas Valladares MD and Kaiden Floyd CRNA. Specimen's removed: 1. Erythematous lesion right middle medial back to Pathology. 2. Lesion right lateral cheek to Pathology as a frozen section. 3. Pigmented lesion left forehead above the eyebrow to Pathology. 4. Pigmented lesion upper sternal area to Pathology. 5. Benign keratosis lower sternal area to Pathology. 6. Benign keratosis left upper medial back to Pathology. Drains: None. Estimated Blood Loss (mL): 25. Description of Procedure: Patient was taken to OR in supine position and was placed under general anesthesia. The face and sternal areas were prepped and draped in the usual fashion. SCD's were placed for DVT prophylaxis. Perioperative antibiotics were given intravenously. Using xylocaine with epinephrine, the lesions (right lateral cheek, left forehead above eyebrow, upper sternal area, and lower sternal area) were infiltrated. After waiting 5 minutes for the anesthetic to take effect, I excised the lesion right lateral cheek in an intradermal fashion and sent it to Pathology as a frozen section for analysis to rule out carcinoma. Frozen section showed an actinic keratosis and no carcinoma seen. Will treat with Aldara postoperatively. The lesion lower sternal area was also excised in an intradermal fashion and sent to Pathology for analysis to rule out carcinoma. Clinically it looks like a benign keratosis. I then excised the pigmented lesion left forehead above eyebrow in a horizontal elliptical fashion down into the subcutaneous tissue. I excised with a 2 mm margin in all directions thus making it a 6 mm excision and a 1.5 cm layered closure. A suture was marked at 12 oclock position for pathology orientation. The lesion was sent to Pathology for analysis to rule out carcinoma. Hemostasis was obtained with electrocautery. I then excised the pigmented lesion upper sternal area in an oblique elliptical fashion down into the subcutaneous tissue. I excised with a 2 mm margin in all directions thus making it a 9 mm excision and a 2.5 cm layered closure. A suture was marked at 12 oclock position for Pathology orientation. The lesion was sent to Pathology for analysis to rule out c arcinoma. Hemostasis was obtained with electrocautery. Both wounds were closed in a layered fashion. For the left forehead above eyebrow wound, I used 5-0 Monocryl interrupted sutures for the deep dermis and subcutaneous tissue. The skin was approximated with 6-0 Prolene simple running suture. For the upper sternal wound, I used 4-0 Monocryl interrupted sutures for the deep dermis and subcutaneous tissue. The skin was approximated with 4-0 Prolene simple interrupted suture. Antibiotic ointment was applied to both these suture lines followed by gauze and Op-Site dressings. For the shave excisions (right lateral cheek and lower sternal area), I obtained hemostasis with silver nitrate chemical cauterization. Antibiotic ointment was applied to these wounds followed by bandaids. The patient was then placed in the lateral position with the right side up to take care of the lesions on his back. Care was taken to place an axillary roll. Patient was stabilized with hip positioners. The lesions left upper medial back and right middle medial back were infiltrated with xylocaine with epinephrine. The lesion left upper medial back was excised in an intradermal fashion and sent to Pathology for analysis to rule out carcinoma. Clinically it looks like a benign keratosis.?I then marked out the erythematous lesion with 6 mm margins in all directions in the shape of a rhomboid. The lesion clinically looks like a carcinoma and the 6 mm margin will be adequate if carcinoma is found on the final Pathology. I then marked out a rhomboid flap adjacent to the lesion. Incisions were made into the subcutaneous tissue. A suture was placed at the 12 oclock position for pathology orientation. The lesion was sent to Pathology for analysis to rule out carcinoma. With the 6 mm margin in all directions, it was a 2.5 cm excision. Hemostasis was obtained with electrocautery. Additional incisions were made as the rhomboid flap was elevated on a subcutaneous pedicle. Some tension was noted when the rhomboid flap was transposed into the defect mostly at the zig zag point involving the donor flap. I undermined this skin edge at the level of the underlying muscular fascia for 2.5 cm. This allowed this skin edge to approximate the zig zag point of the donor flap with no tension and no distortion. Hemostasis was obtained with electrocautery. I sprayed Shey absorbable hemostat into the wound to minimize seroma formation postoperatively. Once the flap was transposed into the defect, I closed the wound in a multiple complex layered fashion with 4-0 Monocryl figure of eight interrupted sutures for the underlying Robert's fascial layer. The deep dermis and subcutaneous tissue was approximated with 4-0 Monocryl interrupted sutures. The skin was approximated with 4-0 Prolene simple interrupted sutures. No vascular compromise was seen on the skin flap. The size of the defect and the size of the flap needed to close the defect was 12.5 cm2. The length of the closure was 2.5 cm for each of the 4 limbs of the flap closure for a 10 cm closure. Only two of the limbs needed extensive undermining to achieve closure with no tension. The other two limbs did not need that undermining. It was a 10 cm closure but only 5 cm of the closure was complex due to the extensive undermining in this one area of the wound for closure. Antibiotic ointment was applied to the suture line followed by a gauze compression dressing. For the shave excision (left upper medial back), I obtained hemostasis with silver nitrate chemical cauterization. This was followed by antibiotic ointment and a bandaid. Patient tolerated the procedure well and was sent to PACU in satisfactory condition. Patient will be sent home on antibiotics and pain medication. He will keep his head elevated during the initial postoperative period. Patient will followup in a week for a wound check and for discussion of the pathology report. The left forehead above eyebrow sutures will be removed at that time. The upper sternal area sutures and the right middle medial back sutures will be removed in two weeks. Once the silver nitrate chemical cauterization scab comes off the right lateral cheek wound, will then begin Aldara therapy which is applied daily at night 5 days per week for 6 weeks. Then the area that was treated will be re-evaluated in 2 months. Grafts/Implants Used: Shey. Procedure Start Time: 14:12 Procedure Stop Time: 16:10 Complications None. Admit VTE Documentation VTE Present on Admission: No VTE Mechan Device Prophylaxis: SCD's VTE Pharm Prophylaxis ordered?: No Addendum Addendum: Surgery Charges CPT - 09742 ICD-10 - D49.2, L57.0, Z85.828, Z87.891 85702 D49.2, L57.0, Z85.828, Z87.891 38456 D49.2, L57.0, Z85.828, Z87.891 26216 D49.2, L57.0, Z85.828, Z87.891 56264 D49.2, L57.0, Z85.828, Z87.891 41221 D49.2, L57.0, Z85.828, Z87.891 15991 L57.0, D49.2, Z85.828, Z87.891 57252 L82.0, L57.0, Z85.828, Z87.891 97386 L82.0, L57.0, Z85.828, Z87.891
[2022-07-03] MEDS: Mupirocin Ointment 22gm Tube 1 APPLIC (16:08)
--- NOTE | 2022-07-03 17:02 | DCINST_ITS ---
Discharge Instructions Diet Discharge Diet: No restrictions Activity Discharge Activity: May Drive (if not taking narcotics for pain medication), May Shower (in two days.) and - (keep head elevated. no heavy lifting.) May shower in (days): 2 May resume sexual activity in: 10-14 days Ice area for (Minutes): 5 (for facial swelling.) Weight Bearing Status: Weight bearing as tolerated Lifting Restrictions: 10 lbs. Keep extremity elevated above heart level: - (elevate head.) Dressing / Incision Call your doctor if your incision/area has: Continuous Slow Oozing, Sudden Increased Bleeding, Increased Pain/ Swelling, Increased Redness, Foul Smelling Discharge and Swelling at the incision site Call your doctor if you observe: Fever of 101 or Higher, Coldness, Increased Pain, Shortness of breath, Chest pain, Calf discomfort and Uncontrolled pain Suture Line Care: - (may apply antibiotic ointment to wounds daily after dressings removed in two days.) Remove Dressing in: 2 days (may apply antibiotic ointment to suture line daily followed by a band aid.) Cleanse incision/area with: Soap & Water (may get wounds wet in the shower in two days and may use soap and water) Follow Up Care Please Follow Up With: Brian Hook MD When: one week. call [phone] for appt. Test Results: Test results from this visit will be discussed in further detail at your follow- up appointment, if applicable. Discharge Plan Admission Primary Reason for Your Visit: excision lesions Attending Provider: Brian Hook Primary Care Provider: Christine Jimenez Discharge Orders/Prescriptions Prescriptions: New clindamycin HCl [Cleocin HCl] 300 mg capsule 300 mg PO TID Qty: 12 0RF L.acidoph,saliva-B.bif-S.therm [Acidophilus Probiotic Blend] 175 mg capsule 1 cap PO DAILY Qty: 10 0RF oxycodone-acetaminophen [Percocet] 5-325 mg tablet 1 tab PO Q6H PRN (Reason: pain (scale score 7-10)) 5 Days Qty: 20 0RF Rx Instructions: 20 tabs (twenty) Continued pregabalin 50 mg capsule 50 mg PO BID Label Comments: TAKE 1 CAPSULE BY MOUTH TWICE DAILY imiquimod 5 % cream in packet 1 applic topical 5XW 42 Days Qty: 30 0RF Rx Instructions: 30 packets (thirty) Apply daily at night 5 days per week for 6 weeks multivitamin 1 EACH tablet 1 ea PO DAILY tamsulosin 0.4 MG capsule 0.4 mg PO DAILY duloxetine 60 MG capsule 60 mg PO DAILY psyllium husk (with sugar) 3.4 GM powder in packet 3.4 g PO PRN PRN (Reason: Constipation) acetaminophen 325 MG tablet 650 mg PO Q6H PRN PRN (Reason: Pain Score 1-10/Temp > 100.7 F) 0RF hydrochlorothiazide 12.5 mg tablet 12.5 mg PO DAILY Qty: 90 3RF atorvastatin 10 mg tablet 10 mg PO DAILY Qty: 90 3RF metoprolol succinate 50 mg tablet extended release 24 hr 50 mg PO QHS Qty: 90 4RF Referrals / Follow Up: Brian Hook MD [Med Staff - Active Staff] - (followup office one week.) Christine Jimenez DO [Primary Care Provider] - Disposition Disposition (needs filled in before D/C Order can be placed): Home, Self Care
== END 2022-07-03 18:20 | disposition home or self-care (01) ==
LOC: SDC 10:56 → AC 10:58
PROVIDERS: Referring Provider Surgery; Visit Provider Surgery
PROC: (CPT 13101; principal; 2022-07-03 12:20)
DX: L82.0 Inflamed seborrheic keratosis (principal); L57.0 Actinic keratosis; Z87.891 Personal history of nicotine dependence; D49.2 Neoplasm of unspecified behavior of bone, soft tissue, and skin; Z85.828 Personal history of other malignant neoplasm of skin
CPT/HCPCS: 13101; 11441; 12051; 11401; 12031; 11311; 11301 ×2; 00300; 88305; 88331; J7120; J2405

== ENCOUNTER → 2022-07-28 | Outpatient (CLI) | payer MEDICARE, SELFPAY | END | disposition home or self-care (01) | LOC: LABSPEC 10:47 | PROVIDERS: Visit Provider Nurse Practitioner Family | DX: T81.89XA Other complications of procedures, not elsewhere classified, initial encounter (principal); D49.2 Neoplasm of unspecified behavior of bone, soft tissue, and skin; Z85.828 Personal history of other malignant neoplasm of skin | CPT/HCPCS: 87070; 87075; 87205 ==

== ENCOUNTER 2022-11-18 11:23 | Emergency (ER) | payer MEDICARE, SELFPAY ==
[2022-11-18 11:25] VITALS: BP 132/79; PULSE 69; RESP 18; TEMP 36; O2SAT 95; BMI 31.3
--- NOTE | 2022-11-18 11:50 | RAD_ITS ---
STUDY: X-RAY CHEST REASON FOR EXAM: Male, 82 years old. Weakness and lightheadedness. TECHNIQUE: Single AP portable view of the chest. COMPARISON: Comparison is made with prior study dated December 28, 2019. FINDINGS: EKG electrodes are seen. The lungs are clear and expanded. There is no demonstrated pleural abnormality. Normal size heart. Normal mediastinum and venecia. Normal visualized pulmonary arteries. There is atherosclerotic tortuosity of the aortic arch and descending thoracic aorta. There are diffuse degenerative changes of the visualized thoracic spine. The patient is status post bilateral shoulder replacement. There is no demonstrated abnormality of the visualized soft tissue structures of the upper abdomen. RAD/Chest 1 View (Portable) IMPRESSION: No acute abnormality is seen. Electronically Signed: Luis Valencia MD at 12:47 EDT ,
--- NOTE | 2022-11-18 11:50 | EKG12_ITS ---
Test Reason : WEAKNESS Blood Pressure : / mmHG Vent. Rate : 065 BPM Atrial Rate : 065 BPM P-R Int : 178 ms QRS Dur : 110 ms QT Int : 408 ms P-R-T Axes : 018 000 024 degrees QTc Int : 424 ms Normal sinus rhythm Inferior infarct , age undetermined Abnormal ECG Confirmed by ISABEL RAMIREZ, UNIQUE ([id number]), purchase request editor DORIAN MILLER ([id number]) on 11/23/2022 10:51:21 AM Referred By: KD Confirmed By:UNIQUE HALL MD
--- NOTE | 2022-11-18 12:01 | EX.ED.DYSGE1 ---
HPI History of Present Illness Chief Complaint: Weakness Narrative Narrative: Patient had allergy shots this morning when he got home he went to urinate afterwards he had an episode where he felt flushed his whole face was quite flushed and he felt lightheaded. His symptoms are now gone. At the time he had his symptoms he had no vertigo he did not feel off balance. He did feel like he was going to pass out. He had no vision changes no speech difficulties or focal weakness. He denies any palpitations or chest pain or back pain or difficulty breathing. [facility] Medical History Actinic keratosis Allergies Aortic root dilatation Arthritis Basal cell carcinoma (BCC) Basal cell carcinoma of back Benign prostatic hyperplasia BPH (benign prostatic hyperplasia) Cancer Cardiology follow-up encounter COVID-19 DDD (degenerative disc disease), lumbosacral Depression Depression Essential (primary) hypertension Former smoker Hearing problem High cholesterol History of diverticulitis History of echocardiogram Hyperlipidemia Hypertension Leg cramps Neoplasm of skin of back Neoplasm of skin of left lateral forehead Neoplasm of skin of right cheek Neoplasm of skin of sternum Neuropathy Nonrheumatic aortic (valve) insufficiency Nonrheumatic mitral (valve) insufficiency Obesity Other acute postprocedural pain Pain Peripheral neuropathy Personal history of skin cancer Primary osteoarthritis of left hip Prostate disease Radiculopathy of lumbosacral region Seborrheic keratoses, inflamed Spinal stenosis of lumbosacral region Syncope Wears dentures Wears glasses Wears hearing aid Home Medications duloxetine 60 mg capsule,delayed release 60 mg PO DAILY 07/29/18 [History Last Taken 10/03/18] multivitamin 1 ea PO DAILY 07/29/18 [History Last Taken Unknown] psyllium husk (with sugar) 3.4 gram oral powder packet 3.4 g PO PRN PRN Constipation 07/29/18 [History Last Taken Unknown] tamsulosin 0.4 mg capsule 0.4 mg PO DAILY 07/29/18 [History Last Taken Unknown] pregabalin 50 mg capsule 50 mg PO BID 08/16/19 [History Last Taken Unknown] acetaminophen 325 mg tablet 650 mg PO Q6H PRN PRN Pain Score 1-10/Temp > 100.7 F 12/31/19 [Rx Last Taken Unknown] metoprolol succinate 50 mg tablet,extended release 24 hr 50 mg PO QHS #90 tabs 12/19/21 [Rx Last Taken Unknown] L.acidophil,salivari-Bifido bifidum-Strep thermoph 175 mg capsule (Acidophilus Probiotic Blend) 1 cap PO DAILY #10 caps 07/03/22 [Rx Last Taken Unknown] zinc sulfate 50 mg zinc (220 mg) tablet 50 mg PO DAILY 08/05/22 [History Last Taken Unknown] atorvastatin 10 mg tablet 10 mg PO DAILY #90 tabs 10/16/22 [Rx Last Taken Unknown] hydrochlorothiazide 12.5 mg tablet 12.5 mg PO DAILY #90 tabs 10/30/22 [Rx Last Taken Unknown] Allergy/AdvReac Type Severity Reaction Status Date / Time diazepam [From Valium] AdvReac Unknown Verified 11/05/22 06:38 Family History Mother Myocardial infarction Diabetes Asthma COPD (chronic obstructive pulmonary disease) Brother Leukemia Other Heart disease Surgical History H/O basal cell carcinoma excision History of back surgery History of pancreatic surgery History of shoulder replacement Hx of circumcision Hx of tonsillectomy Social History household members: children housing: house number of children: 2 current occupational status: retired Smoking Status: Former smoker alcohol intake: current alcohol intake frequency: 0-2 drinks per day Alcohol type: beer substance use type: does not use do you feel safe at home: Yes additional social history: Does Not Take Aspirin Does Not Take Ibuprofen ROS ROS ED ROS Narrative Past medical history: Reviewed Medications: Reviewed Social history: Noncontributory Review of systems: All systems negative except as indicated General: Feeling flushed and lightheaded as in HPI Eyes: No visual changes ENT: No upper airway congestion, normal voice Neck: No neck pain Cardiovascular: No chest pain Respiratory: No shortness of breath or cough Gastrointestinal: No abdominal pain, nausea vomiting or diarrhea Genitourinary: No dysuria Musculoskeletal: Denies myalgias no difficulty with ambulation Skin: No rash Neurological: No memory loss, confusion or any focal weakness Psych: No recent behavioral changes Hematologic: No easy bleeding or easy bruising EXAM Physical Exam Narrative Exam Narrative: Physical exam General: Well nourished, Well developed, No Acute Distress Head: Normocephalic, Atraumatic Eyes: Conjunctiva not pale ENT: Moist mucous membranes Neck: Supple, Nontender, No lymphadenopathy Cardiovascular: Regular rate, Regular rhythm Respiratory: No distress, CTA bilaterally Abdomen: Soft, Nontender, Nondistended Back: Nontender, Normal Inspection. Negative for: CVA tenderness Extremities: Nontender, No edema Skin: Normal color, No rash Neurological: Alert, Normal Strength, Normal Sensation Psychological: Normal affect Const Vital Signs: 11/18/22 11:25 11/18/22 11:28 Temperature 96.8 F L Temperature Source Temporal Pulse Rate 69 Respiratory Rate 18 Respiratory Effort Normal Non-Labored Respiratory Pattern Normal Blood Pressure 132/79 H Blood Pressure Mean 96 Pulse Ox 95 Oxygen Delivery Method Room Air MDM MDM MDM Narrative Medical decision making narrative: A. Problems addressed Patient felt lightheaded and flushed after allergy shots. He may have had a vagal episode. However because of his age and comorbidities a full work-up was done, I ruled out cardiac etiology, I thought about cerebellar insufficiency but he has a normal exam I went back to the room to do a Romberg and this was negative he is got a normal gait, he has normal cerebellar function. And he had no vertigo or disequilibrium only lightheadedness. I do not believe this was an arrhythmia, he had no palpitations and had an unremarkable otherwise work-up. He appears well and I believe he can be safely discharged home especially that he is back to baseline. B. Amount and/or complexity of the data (2 out of 3) 1. CBC CMP urinalysis and troponin were interpreted by me as normal I discussed the patient with who is in the room 2. Independent interpretation of test Telemetry: Sinus rhythm with a rate in the 60s and 70s without ectopy C. Risk of complications and/or morbidity Differential diagnosis: See above Lab Data Labs: Laboratory Results - last 24 hr 11/18/22 11/18/22 11/18/22 12:17 12:17 12:38 WBC 5.9 RBC 4.82 Hgb 14.3 Hct 42.9 MCV 89.0 MCH 29.7 MCHC 33.3 RDW Std Deviation 43.4 RDW Coeff of Michael 13.3 Plt Count 180 MPV 9.8 Immature Gran % (Auto) 2.200 H Neut % (Auto) 64.0 Lymph % (Auto) 17.4 L Jerome % (Auto) 14.0 H Eos % (Auto) 1.9 Baso % (Auto) 0.5 Absolute Neuts (auto) 3.8 Absolute Lymphs (auto) 1.03 Nucleated RBC % 0 Sodium 135 L Potassium 3.7 Chloride 102 Carbon Dioxide 29.0 Anion Gap 4 L BUN 21 H Creatinine 0.96 Estim Creat Clear Calc 53.55 Est GFR (MDRD) Af Amer 96 Est GFR (MDRD) Non-Af 80 BUN/Creatinine Ratio 22.0 H Glucose 107 H Calcium 9.3 Total Bilirubin 0.50 AST 22 ALT 26 Alkaline Phosphatase 89 Troponin I High Sens 5 Total Protein 6.8 Albumin 3.6 Globulin 3.2 Albumin/Globulin Ratio 1.1 Urine Color Yellow Urine Clarity Clear Urine pH 7.0 Ur Specific [place] 1.010 Urine Protein Negative Urine Glucose (UA) Normal Urine Ketones Negative Urine Occult Blood Negative Urine Nitrite Negative Urine Bilirubin Negative Urine Urobilinogen Normal Ur Leukocyte Esterase Negative Urine RBC 0 SEEN Urine WBC 0 SEEN Ur Squamous Epith Cells 0 SEEN Urine Bacteria 0 SEEN Urine Mucus 0 SEEN Radiography Diagnostic Testing: Clinical Impression(s) from Imaging Studies Chest X-Ray 11/18/22 11:50 IMPRESSION: No acute abnormality is seen. Electronically Signed: Luis Valencia MD at 12:47 EDT , Chest x-ray interpreted by me as normal EKG Initial EKG: Comments: Sinus rhythm with a rate of 65. Normal CA and QTc intervals. Nonspecific changes however unchanged from December 28, 2019. Interpreted by emergency doctor. Differential Diagnosis Abdominal Pain: Appendicitis Discharge Plan Triage Chief Complaint: Weakness Other Complaint: Syncope ED Provider: Kg Rojas Dx/Rx/DC Orders Clinical Impression: Light-headed, Skin flushed Instructions: ED Dizziness, Uncertain Cause Prescriptions: No Action pregabalin 50 mg capsule 50 mg PO BID Label Comments: TAKE 1 CAPSULE BY MOUTH TWICE DAILY zinc sulfate 50 mg zinc (220 mg) tablet 50 mg PO DAILY multivitamin 1 EACH tablet 1 ea PO DAILY tamsulosin 0.4 MG capsule 0.4 mg PO DAILY duloxetine 60 MG capsule 60 mg PO DAILY psyllium husk (with sugar) 3.4 GM powder in packet 3.4 g PO PRN PRN (Reason: Constipation) acetaminophen 325 MG tablet 650 mg PO Q6H PRN PRN (Reason: Pain Score 1-10/Temp > 100.7 F) 0RF L.acidoph,saliva-B.bif-S.therm [Acidophilus Probiotic Blend] 175 mg capsule 1 cap PO DAILY Qty: 10 0RF metoprolol succinate 50 mg tablet extended release 24 hr 50 mg PO QHS Qty: 90 4RF atorvastatin 10 mg tablet 10 mg PO DAILY Qty: 90 4RF hydrochlorothiazide 12.5 mg tablet 12.5 mg PO DAILY Qty: 90 3RF Primary Care Provider: Christine Jimenze Referrals: Christine Jimenez DO [Primary Care Provider] - 3-5 Days Disposition Disposition: Home, Self Care
[2022-11-18 12:26] LABS: Absolute Lymphocyte Count 1.03 X10^3/uL (0.83-4.51); Absolute Neutrophil Count 3.8 X10^3/uL (2.0-7.7); Basophil# 0.03 X10^3/uL; Basophil% 0.5 % (0-1); Eosinophil# 0.11 X10^3/uL; Eosinophils% 1.9 % (0-5); Hematocrit 42.9 % (40-54); Hemoglobin 14.3 g/dL (13.0-16.5); Lymphocyte # 1.03 X10^3/ul (0.83-4.51); Lymphocyte % 17.4 % (19-41); Mean Corp Hgb Conc 33.3 g/dL (32-36); Mean Corpuscular Hgb 29.7 pg (27.0-32.0); Mean Platelet Vol. 9.8 fl (6.2-12.0); Monocyte# 0.83 X10^3/uL; NRBC Flagged by Analyzer 0 % (0-5); Neutrophil # 3.78 X10^3/uL (2.7-7.7); Platelet Count 180 K/mm3 (150-450); RBC Distribution Width CV 13.3 % (11.6-14.6); RBC Distribution Width SD 43.4 fl (35.1-43.9); Red Blood Count 4.82 M/mm3 (4.6-6.2); White Blood Count 5.9 K/mm3 (4.4-11.0)
[2022-11-18 12:42] LABS: ALB/GLOB Ratio 1.1 RATIO (0.9-2.4); AST(SGOT) 22 U/L (15-37); Alanine Aminotransfer ALT/SGPT 26 U/L (16-61); Albumin, Serum 3.6 g/dL (3.2-5.0); Alkaline Phosphatase 89 U/L (45-117); Anion Gap 4 (5-15); BUN 21 mg/dL (7-18); Calcium,Total 9.3 mg/dL (8.5-10.1); Chloride 102 mmol/L (98-107); Creatinine, Serum 0.96 mg/dL (0.70-1.30); EST Glomerular Filtration Rate 80 mL/min (>60); Est Glom Filt Rate - Afr Amer 96 mL/min (>60); Estimated Creatinine Clearance 53.55 ml/min; Globulin 3.2 g/dL (2.2-4.2); Glucose 107 mg/dL (74-106); Potassium 3.7 mmol/L (3.5-5.1); Protein, Total 6.8 g/dL (6.4-8.2); Sodium Level 135 mmol/L (136-145); Troponin-I HS 5 pg/mL (3.0-78.0)
[2022-11-18 12:45] LABS: Bacteria 0 SEEN /hpf (None Seen); Mucous, Urine 0 SEEN /hpf (<or=2+); Red Blood Cells-Urine 0 SEEN /hpf (0-5); Squamous Epithelial Cells - UA 0 SEEN /hpf (0-5); White Blood Cells 0 SEEN /hpf (0-5)
[2022-11-18 12:55] LABS: Color, Urine Yellow (Yellow); Glucose, Dipstick Normal (Normal); Ketone-Dipstick Negative (Negative); Leukocyte Esterase-Dipstick Negative /ul (Negative); Nitrite-Dipstick Negative (Negative); Occult Blood-Urine Negative /ul (Negative); Protein-Dipstick Negative (Negative); Urine Bilirubin Dipstick Negative (Negative); Urine Clarity Clear (Clear); Urine Urobilinogen Normal (Normal)
[2022-11-18 13:31] VITALS: BP 128/78; PULSE 63; RESP 16; O2SAT 98
== END 2022-11-18 13:32 | disposition home or self-care (01) ==
PROVIDERS: Emergency Provider Emergency Medicine; Visit Provider Emergency Medicine
DX: R42 Dizziness and giddiness (principal); R55 Syncope and collapse; R53.1 Weakness; Z87.891 Personal history of nicotine dependence; Z86.16 Personal history of COVID-19
CPT/HCPCS: 71045; 80053; 81001; 84484; 85025; 93005; 99285; A4216

== ENCOUNTER → 2023-02-08 | Outpatient (CLI) | payer MEDICARE, SELFPAY ==
[2023-02-08 08:07] LABS: Hematocrit 44.6 % (40-54); Hemoglobin 14.6 g/dL (13.0-16.5); Mean Corp Hgb Conc 32.7 g/dL (32-36); Mean Corpuscular Hgb 29.3 pg (27.0-32.0); Mean Corpuscular Volume 89.6 fL (80-94); Mean Platelet Vol. 10.3 fl (6.2-12.0); Platelet Count 138 K/mm3 (150-450); RBC Distribution Width CV 13.8 % (11.6-14.6); RBC Distribution Width SD 45.2 fl (35.1-43.9); Red Blood Count 4.98 M/mm3 (4.6-6.2); White Blood Count 5.8 K/mm3 (4.4-11.0)
[2023-02-08 08:11] LABS: Scan Indicated on CBC? Y/N NO
[2023-02-08 08:24] LABS: ALB/GLOB Ratio 1.1 RATIO (0.9-2.4); AST(SGOT) 22 U/L (15-37); Alanine Aminotransfer ALT/SGPT 26 U/L (16-61); Albumin, Serum 3.6 g/dL (3.2-5.0); Alkaline Phosphatase 84 U/L (45-117); Anion Gap 4 (5-15); BUN 18 mg/dL (7-18); BUN/Creat Ratio 19.7 RATIO (10-20); Calcium,Total 8.7 mg/dL (8.5-10.1); Chloride 106 mmol/L (98-107); Cholesterol 110 mg/dL (200); Creatinine, Serum 0.92 mg/dL (0.70-1.30); EST Glomerular Filtration Rate 84 mL/min (>60); Est Glom Filt Rate - Afr Amer 101 mL/min (>60); Globulin 3.3 g/dL (2.2-4.2); Glucose 90 mg/dL (74-106); High Density Lipoprotein 35 mg/dL; PSA,Total- Diagnostic 4.37 ng/mL (0.0-4.0); Potassium 3.9 mmol/L (3.5-5.1); Protein, Total 6.9 g/dL (6.4-8.2); Sodium Level 139 mmol/L (136-145); Thyroid Stim Hormone (TSH) 5.24 uIU/mL (0.358-3.74); Triglycerides 201 mg/dL; Very Low Density Lipoprotein 40 mg/dL (5-40)
== END | disposition home or self-care (01) ==
LOC: PAVLAB 07:33
DX: I10 Essential (primary) hypertension (principal); E78.5 Hyperlipidemia, unspecified; R97.20 Elevated prostate specific antigen [PSA]
CPT/HCPCS: 36415; 80053; 80061; 84153; 84443; 85027

== ENCOUNTER → 2023-10-11 | Outpatient (CLI) | payer MEDICARE, SELFPAY ==
--- NOTE | 2023-10-11 13:00 | PROSB_PTH ---
PATHOLOGY RESULTS PATIENT: MIGUEL YOUNG LOC: [facility] U#:[id number] AGE/SX: 83/M ROOM: RE10/11/[address]: Dr. Ivan Franklin MD : 1940 BED: DIS: 10/11/2023 SPEC #: [id number] RECD: 10/12/23 07:56 STATUS: OLIVER RE #: [id number] VINICIO: 10/11/23 13:[address]: Darrell Hoff DEPT: SURGICAL PATHOLOGY RECD BY: Bernarda Green ENTERED: 10/12/23 07:57 SP TYPE: PROST BX OTHR DR: MD Dr. Ivan Miller MD Dr. Katie Mae Brenner, Tissues: Prostate, NOS Prostate, NOS Prostate, NOS Procedures: Surgery Specimen Level IV Comments: @ Ordering doctor for SUIV edited from to @ by RGOOD at 10/13/23812 @ Submitting doctor edited from to @ by RGOOD at 10/13/23812 HEADER OPERATION: Prostate biopsy PRE-OP DIAGNOSIS: Elevated PSA TISSUE SUBMITTED: A- Prostate biopsy, B- Prostate biopsy, C- Prostate biopsy MICROSCOPIC DIAGNOSIS A. Prostate, core biopsy: Prostatic adenocarcinoma. Arie grade: 3+4=7 Number of cores involved: 1/1 Proportion of tissue involved: >90% Perineural invasion: Present, focal. Greatest tumor length: 1.0 cm B. Prostate, core biopsy: Prostatic adenocarcinoma. [place] grade: 3+3=6 Number of cores involved: 1/1 Proportion of tissue involved: 75% Perineural invasion: Not identified. Greatest tumor length: 0.7 cm C. Prostate, core biopsy: Prostatic adenocarcinoma. [place] grade: 3+3=6 Number of cores involved: 1/1 Proportion of tissue involved: 75% Perineural invasion: not identified. Greatest tumor length: 0.6 cm JAJA:kimberly 10/13/2023 COMMENT Case has been reviewed in consultation with Dr. Hughes who concurs with the above diagnosis. IDC:AM MICROSCOPIC DESCRIPTION Slides are reviewed. GROSS DESCRIPTION A - Received in fixative is one container labeled with the patient's name and designated prostate biopsy, not further designated. The specimen consists of one elongated fragment of light perrin-white soft tissue each measuring 1.1 cm in length and 0.1 cm in diameter. The specimen is totally submitted in one cassette. B - Received in fixative is one container labeled with the patient's name and designated prostate biopsy, not further designated. The specimen consists of one elongated fragment of light perrin-white soft tissue each measuring 1.1 cm in length and 0.1 cm in diameter. The specimen is totally submitted in one cassette. C - Received in fixative is one container labeled with the patient's name and designated prostate biopsy, not further designated. The specimen consists of one elongated fragment of light perrin-white soft tissue each measuring 1.0 cm in length and 0.1 cm in diameter. The specimen is totally submitted in one cassette. / JAJA:kimberly 10/12/2023 TC:0 CPT: 97754 x3
--- OUTSIDE RECORDS SUMMARY | 2023-10-11 21:01 | XMS RPT_ITS | CCD ---
Author Name Unknown Address [address] [place] [address] Organization [facility] Care Team Providers Care Welder Gun Name Role Phone Christine Jimenez Primary Care Unavailable Vega Bailey Attending Unavailable BESS TEJADA, DR DELEON Primary Care Physician [phone] BESS TEJADA, DR DELEON Primary Care Unavailable BESS TEJADA, DR DELEON Attending Unavailable BESS TEJADA, DR DELEON Attending Unavailable BESS TEJADA, DR DELEON Primary Care Unavailable Allergies Allergy Classification Reported Allergen(s) Allergy Type Date of Onset Reaction(s) Facility (4 sources) diazePAM; Translations: [diazepam] Drug Allergy [facility] Medications Current Medications Medication Drug Class(es) Dates Sig (Normalized) Sig (Original) Ascorbic Acid (2 sources) Vitamin C Start: 08-07-2021 Vitamin C qDay, 0 Refill(s) Start Date: 08/07/21 Status: Ordered atorvastatin 10 mg oral tablet (4 sources) HMG-CoA Reductase Inhibitor Start: 08-27-2023 End: 02-23-2024 atorvastatin 10 mg oral tablet Dose : 10 mg = 1 tab(s), Oral, Daily, # 90 tab(s), 1 Refill(s), Pharmacy: [id number], 171, cm, 08/27/23 10:07:00 EST, Height, kg, 08/27/23 10:07:00 EST, Dosing Weight Start Date: 08/27/23 Stop Date: 02/23/24 Status: Ordered Problems Problem Classification Problem Date Documented Da te Episodic/Chronic Cardiac and circulatory congenital anomalies (4 sources) 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 Diabetes mellitus without complication (6 sources) Hyperglycemia; Translations: [Hyperglycemia, unspecified] Onset: 08-27-2023 02-10-2019 Episodic Disorders of lipid metabolism (6 sources) Hyperlipidemia; Translations: [Hyperlipidemia, unspecified] Onset: 08-27-2023 02-10-2019 Chronic Diverticulosis and diverticulitis (4 sources) Diverticular disease 01-16-2020 Chronic Essential hypertension (6 sources) Hypertensive disorder; Translations: [Essential (primary) hypertension] Onset: 08-27-2023 11-14-2015 Chronic Genitourinary symptoms and ill-defined conditions (2 sources) Hematuria, unspecified; Translations: [Hematuria, unspecified] Onset: 08-27-2023 Episodic Hyperplasia of prostate (4 sources) Benign prostatic hyperplasia 02-10-2019 Chronic Neoplasms of unspecified nature or uncertain behavior (4 sources) Neoplastic disease of uncertain behavior 08-11-2019 Episodic Other nervous system disorders (4 sources) 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 Other nervous system disorders (2 sources) Other disorders of peripheral nervous system; Translations: [Other disorders of peripheral nervous system] Onset: 08-27-2023 Chronic Other screening for suspected conditions (not mental disorders or infectious disease) (6 sources) Raised TSH level; Translations: [Elevated prostate specific antigen [PSA]] Onset: 08-27-2023 02-01-2020 Episodic Residual codes; unclassified (4 sources) Chronic pain 02-10-2019 Episodic Unclassified (2 sources) AORTIC VALVE DISEASE Onset: 08-18-2018 Results Test Name Value Interpretation Reference Range Facil ity Encounters Encounter Date Encounter Type Care Provider Facility Start: 08-27-[address] CHRISTINE Martin ility:B Start: 08-27-2023 End: 08-31-[address] CHRISTINE JIMENEZ DO [facility] Start: 08-27-[address] CHRISTINE Martin ility:B Start: 08-27-2023 End: 08-31-[address] CHRISTINE JIMENEZ DO [facility] Start: 02-18-2022 End: 02-18-[address] CHRISTINE JIMENEZ DO [facility] Start: 08-07-2021 End: 08-07-[address] CHRISTINE JIMENEZ DO [facility] Start: 08-18-2018 Evaluation and management of inpatient Christine Destiny Jimenez Facility:[facility] Procedures Date Procedure Procedure Detail Performing Clinician Start: 10-31-2016 Shoulder region stru cture (body structure) DR CHRISTINE JIMENEZ DO Immunizations Immunization Date Immunization Notes Care Provider [facility] 05-03-2023 influenza virus vacc ine, unspecified formulation DR CHRISTINE JIMENEZ DO [facility] 05-11-2022 influenza virus vacc ine, unspecified formulation DR CHRISTINE JIMENEZ DO [facility] 12-22-2021 COVID-19, mRNA, LNP- S, PF, 100 mcg or 50 mcg dose; Translations: [Moderna COVID-19 Vaccine] DR CHRISTINE JIMENEZ DO [facility] 06-25-2021 COVID-19, mRNA, LNP- S, PF, 100 mcg/ 0.5 mL dose; Translations: [Moderna COVID-19 Vaccine] DR CHRISTINE JIMENEZ DO [facility] 04-28-2021 influenza virus vacc ine, unspecified formulation DR CHRISTINE JIMENEZ DO [facility] 09-23-2020 COVID-19, mRNA, LNP- S, PF, 100 mcg/ 0.5 mL dose; Translations: [Moderna COVID-19 Vaccine] DR CHRISTINE JIMENEZ DO [facility] 08-26-2020 SARS-CoV-2 (COVID-19 ) mRNA-[id number] CHRISTINE JIMENEZ DO [facility] 01-27-[address] CHRISTINE JIMENEZ DO [facility] 05-05-2016 influenza virus vacc ine, unspecified formulation DR CHRISTINE JIMENEZ DO [facility] 05-04-2014 influenza virus vacc ine, unspecified formulation DR CHRISTINE JIMENEZ DO [facility] 05-04-2012 influenza virus vacc ine, unspecified formulation DR CHRISTINE JIMENEZ DO [facility] 02-26-2012 zoster vaccine, live DR REX JIMENEZ DO [facility] 05-06-2005 pneumococcal polysaccharide vaccine, [address] CHRISTINE JIMENEZ DO [facility] Payers Date Payer Category Payer Unknown [id number] 2017 Medicare [id number] 1940 Unknown [id number] .. [id number] 1940 Unknown [id number] Unknown [id number] Social History Date Type Detail Facility Start: 02-10-2019 Ex-smoker (finding) [facility] Sex Assigned At Male [facility] Clinical Note 08-28-2023 Note Date & Type Note Facility 08-28-2023 Note . MICRO - Microbiology PROCEDURE: Urine Culture [*1] SOURCE: Urine, Clean Catch BODY SITE: COLLECTED DATE/TIME: 08/27/2023 16:26 EST RECEIVED DATE/TIME: 08/27/2023 20:10 EST START DATE/TIME: 08/27/2023 20:10 EST FREE TEXT SOURCE: FINAL REPORTS Final Report [] Verified Date/Time/Personnel: 08/28/2023 14:43 EST 10,000 - 50,000 cfu/ml Multiple bacterial morphotypes present. Probable Contamination. Suggest recollection if clinically indicated. Performing Locations *1: This test was performed at: [facility], [address] [place] [address] ([place]) Evaluation + Plan note LaboratoryRadiology Note Date & Type Note Facility Evaluation + Plan note Future Appointments Appointment Date:01/22/2022 10:20:00 AM Scheduled Provider:CHRISTINE JIMENEZ DO Location:[facility] Appointment Type: OV Future Scheduled TestsThyroid Stimulating Hormone 08/07/21A1C Hemoglobin 08/07/21Complete Blood Count 08/07/21Complete Metabolic Panel 08/07/21XR Chest 2 Views (PA & Lateral) 08/15/20 [facility] Evaluation + Plan note Laboratory Note Date & Type Note Facility Evaluation + Plan note Future Appointments Appointment Date:08/11/2022 01:30:00 PM Scheduled Provider:CHRISTINE JIMENEZ DO Location:[facility] Appointment Type:PC OV Future Scheduled TestsThyroid Stimulating Hormone 08/07/21A1C Hemoglobin 08/07/21Complete Blood Count 08/07/21Complete Metabolic Panel 08/07/21 [facility] Evaluation + Plan note Laboratory Note Date & Type Note Facility Evaluation + Plan note Future Appointments Appointment Date:02/25/2024 10:00:00 AM Scheduled Provider:CHRISTINE JIMENEZ DO Location:[facility] Appointment Type:PC OV Future Scheduled [id number] Hemoglobin 08/27/23A1C Hemoglobin 02/23/23 [facility] Hospital course Narrative Note Date & Type Note Facility Hospital course Narrative No data available for this section [facility] Hospital Discharge instructions Note Date & Type Note Facility Hospital Discharge instructions No data available for this section [facility] Progress note Note Date & Type Note Facility Progress note No data available for this section [facility] Summary Purpose Family History No Family History Records FoundNo Family History Records Found No data available for this section No data available for this section Advance Directives No Advanced Directives Records FoundNo Advanced Directives Records Found Additional Source Comments (unrecognized sect ion and content) No Status Records FoundNo Status Records Found INFORMATION SOURCE (unrecogn ized section and content) DATE CREATED AUTHOR AUTHOR'S ORGANIZ ATION 08/29/2023 [facility] ([place]) Care Team (unrecognized sect ion and content) Care Team Personnel Name: CHRISTINE JIMENEZ DO Position: P4 Physician - Primary Care Med Service: Active Provider Member Role: Primary Care Physician Address: Address: [address] [place] [address] Care Team Related Persons Name: YOUNGREILLY PAYTON Address: Home [address] [place], [place] [id number] [place] Name: KAI GARRETT Patient Care team informatio n (unrecognized section and content) Care Team Personnel Name: CHRISTINE JIMENEZ DO Position: P4 Physician - Primary Care Member Role: Primary Care Physician Address: Address: [address] [place] [address] Care Team Related Persons Name: ENDY YOUNG Name: KAI GARRETT Care Team Personnel Name: CHRISTINE JIMENEZ DO Position: P4 Physician - Primary Care Member Role: Primary Care Physician Address: Address: [address] [place] [address]- Care Team Related Persons Name: ENDY YOUNG Name: KAI GARRETT FOR RECORDS PERTAINING TO PATIENTS WHO ARE OR HAVE BEEN ENROLLED IN A CHEMICAL DEPENDENCY/SUBSTANCEABUSE PROGRAM, SOME INFORMATION MAY BE OMITTED. This clinical summary was aggregated from multiple sources. Caution should be exercised in using it in the provision of clinical care. This summary normalizes information from multiple sources, and as a consequence, information in this document may materially change the coding, format and clinical context of patient data. In addition, data may be omitted in some cases. CLINICAL DECISIONS SHOULD BE BASED ON THE PRIMARY CLINICAL RECORDS. [facility] [employer] provides no warranty or guarantee of the accuracy or completeness of information in this document.
== END | disposition home or self-care (01) ==
LOC: LABSPEC 15:58
PROVIDERS: Referring Provider Urology; Visit Provider Internal Medicine Cardiovascular Disease
DX: R97.20 Elevated prostate specific antigen [PSA] (principal)
CPT/HCPCS: 88305

== ENCOUNTER 2023-11-04 09:00 | Outpatient (RCR) | payer MEDICARE, SELFPAY ==
--- NOTE | 2023-09-23 14:51 | HP.OTEVAL ---
Patient's Visit Information Visit Information Visit Information: MIGUEL YOUNG is a 83 year old M, referred to Occupational Therapy by VALERIE Awad, with a diagnosis of Neuropathy. Date of Evaluation: 09/23/23 Occupational Therapist: Laisha Cruz Subjective Subjective: Miguel is an 83 year old man referred by Suzie Gallego PA-C, to outpatient occupational therapy for neuropathy bilaterally. Pt reports pins and needles but no pain in hands, has difficulty with manipulation. Pt reports dtr lives with him and son stops by almost every day. Drives short distances. Hx of shoulder replacements 9 years ago. Pt reports having appt to see neurologist 09/28/23. ADLs Dressing: Button shirt, Coat and Pants Fasteners: Buttons, Zippers and Belt Eating: Use silverware Grooming: Shave and Trim nails Comments: Pt uses electric razor; uses cleaning pills for dentures Comments: Dtr lives with pt and does most of cooking Comments: Dtr lives with pt and does most of cleaning ROM Forearm: R Sup 80/ Pro 80; L Sup 80 / Pro 80 MP: R Ext 0/-20/-10/-20 Flex 80/85/85/85; L Ext 0/-15/-15/-15 Flex 85/85/75/75 Strength Ocean Forwarder: R 40# /L 38# Lateral Pinch: R 12#/L 10# Tripod Pinch: R 8#/ L 6# Tip-to-Tip Pinch: R 6#/ L 4# Sensation Thumb: R 4.56 loss of protective / L 4.31 diminished protective Index: R 4.56 loss of protective / L 4.31 diminished protective Middle: R 4.56 loss of protective / L 4.31 diminished protective Ring: R 4.31 diminished protective / L 4.31 diminished protective Little: R 4.31 diminished protective / L 4.31 diminished protective Quick DASH-Disab of Arm,Shoulder& Hand Quick DASH Score: 50.0000 Goals Goal:: Pt to demo increased revenue coordinator strength in bilat hands by 15# for participation in ADL/IADLs by end of 6 weeks. Pt to demo increased revenue coordinator strength in bilat hands by 4# for participation in ADL/IADLs by end of 6 weeks. Goal:: Pt to report independence and improved time to don/doffing clothing with buttons/zippers with compensatory techniques by end of 6 weeks. Goal:: Pt to demonstrate understanding of safety with protection of hands with daily activities per pt report of consistency by end of education. Pt will demonstrate understanding of safety with protection of hands with visual compensation by discharge. Goal:: Pt will demonstrate use of using bracing to prevent prolonged flexed positions by end of third visit. Rehabilitation General Assessment: Pt presenting with bilateral neuropathy in both hands with noted increased neuropathy on R hand in middle, ring and pinky finger as compared to rest of hand as well as L hand. Due to above, pt would benefit from continued outpatient occupational therapy services to address neuropathy to improve independence and educate with modifications as necessary with daily activities. Rehabilitation Potential: Good Anticipated Interventions Anticipated Interventions: A/AAROM/PROM, Strengthening, Modalities, Orthoses, Fine Motor Coord/Khalif, Sensory Stimulation, ADL Training, Education re assistive Equipment, Education re Diagnosis, Education re Skin Care and Precautions, Home Program and Other Other Interventions: Appropriate bracing to prevent prolonged wrist and/or elbow flexion Visit Plan Frequency: 2-3x /Week Duration: 6 Weeks TEXT: Thank you for the opportunity to evaluate your patient. For Medicare and Medicare HMO plans, please review the plan of care and approve it. It will need to be FAXED BACK to us at [phone] for Medicare purposes. Please let me know if there are questions or concerns regarding this plan of care. Physician Signature: Date:
--- NOTE | 2023-09-30 11:35 | HP.OTEVAL ---
Patient's Visit Information Visit Information Visit Information: MIGUEL YOUNG is a 83 year old M, referred to Occupational Therapy by VALERIE Awad, with a diagnosis of Neuropathy. Date of Evaluation: 09/23/23 Occupational Therapist: Laisha Cruz Subjective Subjective: Miguel is an 83 year old man referred by Suzie Gallego PA-C, to outpatient occupational therapy for neuropathy bilaterally. Pt reports pins and needles but no pain in hands, has difficulty with manipulation. Pt reports dtr lives with him and son stops by almost every day. Drives short distances. Hx of shoulder replacements 9 years ago. Pt reports having appt to see neurologist 09/28/23. ADLs Dressing: Button shirt, Coat and Pants Fasteners: Buttons, Zippers and Belt Eating: Use silverware Grooming: Shave and Trim nails Comments: Pt uses electric razor; uses cleaning pills for dentures Comments: Dtr lives with pt and does most of cooking Comments: Dtr lives with pt and does most of cleaning ROM Forearm: R Sup 80/ Pro 80; L Sup 80 / Pro 80 MP: R Ext 0/-20/-10/-20 Flex 80/85/85/85; L Ext 0/-15/-15/-15 Flex 85/85/75/75 Strength Cupola Mechanic: R 40# /L 38# Lateral Pinch: R 12#/L 10# Tripod Pinch: R 8#/ L 6# Tip-to-Tip Pinch: R 6#/ L 4# Sensation Thumb: R 4.56 loss of protective / L 4.31 diminished protective Index: R 4.56 loss of protective / L 4.31 diminished protective Middle: R 4.56 loss of protective / L 4.31 diminished protective Ring: R 4.31 diminished protective / L 4.31 diminished protective Little: R 4.31 diminished protective / L 4.31 diminished protective Quick DASH-Disab of Arm,Shoulder& Hand Quick DASH Score: 50.0000 Goals Goal:: Pt to demo increased storage garage manager strength in bilat hands by 15# for participation in ADL/IADLs by end of 6 weeks. Pt to demo increased storage garage manager strength in bilat hands by 4# for participation in ADL/IADLs by end of 6 weeks. Goal:: Pt to report independence and improved time to don/doffing clothing with buttons/zippers with compensatory techniques by end of 6 weeks. Goal:: Pt to demonstrate understanding of safety with protection of hands with daily activities per pt report of consistency by end of education. Pt will demonstrate understanding of safety with protection of hands with visual compensation by discharge. Goal:: Pt will demonstrate use of using bracing to prevent prolonged flexed positions by end of third visit. Rehabilitation General Assessment: Pt presenting with bilateral neuropathy in both hands with noted increased neuropathy on R hand in middle, ring and pinky finger as compared to rest of hand as well as L hand. Based on sensation testing and pt report indicated pt would benefit from outpatient occupational therapy service 2/wk for 6 wks with use of modalities, education of visual strategies, strengthening, and orthosis for inflammation reduction and participation in preferred activities Rehabilitation Potential: Good Anticipated Interventions Anticipated Interventions: A/AAROM/PROM, Strengthening, Modalities, Orthoses, Fine Motor Coord/Khalif, Sensory Stimulation, ADL Training, Education re assistive Equipment, Education re Diagnosis, Education re Skin Care and Precautions, Home Program and Other Other Interventions: Appropriate bracing to prevent prolonged wrist and/or elbow flexion Visit Plan Frequency: 2-3x /Week Duration: 6 Weeks TEXT: Thank you for the opportunity to evaluate your patient. For Medicare and Medicare HMO plans, please review the plan of care and approve it. It will need to be FAXED BACK to us at [phone] for Medicare purposes. Please let me know if there are questions or concerns regarding this plan of care. Physician Signature: Date:
--- NOTE | 2023-11-02 09:45 | OTREVAL_ITS ---
Re-Evaluation Intro: VALERIE Awad, It has been my pleasure to treat MIGUEL YOUNG over the last 10 visits for Neuropathy. Please see the progress note below for an update on the occupational therapy plan of care! 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 pt overall percentage of improvement score 15% due to fluctuating day to day pt states sometimes they feel better and sometimes they feel the same -- POC to end this due to pt reporting of little change with intervention Plan Plan Frequency: 2-3x /Week Duration: 6 Weeks Plan: ongoing hand strengthening joint ed on protection plan for discharge 11/04/23 Goals Goals Patient Goals: Regain Mobility, Regain Strength, Improve Fine Motor Skills, Use Hand/Wrist/Arm Normally Again, Decrease Tingling/Numbness and Be More Independent in ADLS Goal:: Pt to demo increased military communications specialist strength in bilat hands by 15# for participation in ADL/IADLs by end of 6 weeks. -- pt current military communications specialist strength L hand 50 pounds and R hand 55 pounds Pt to demo increased military communications specialist strength in bilat hands by 4# for participation in ADL/IADLs by end of 6 weeks. L hand 50 pounds R hand 55 pounds Goal:: Pt to report independence and improved time to don/doffing clothing with buttons/zippers with compensatory techniques by end of 6 weeks. Goal:: Pt to demonstrate understanding of safety with protection of hands with daily activities per pt report of consistency by end of education. pt ed provided in hand safety Pt will demonstrate understanding of safety with protection of hands with visual compensation by discharge. Goal:: Pt will demonstrate use of using bracing to prevent prolonged flexed positions by end of third visit. bracing not needed as pt has full ROM no stiffness handout HEP provided for AROM and exercises to increase/ maintain ROM and strength Anticipated Interventions Anticipated Interventions Anticipated Interventions: A/AAROM/PROM, Strengthening, Modalities, Orthoses, Fine Motor Coord/Khalif, Sensory Stimulation, ADL Training, Education re assistive Equipment, Education re Diagnosis, Education re Skin Care and Precautions, Home Program and Other Other Interventions: Appropriate bracing to prevent prolonged wrist and/or elbow flexion Re-Evaluation Ending Re-evaluation ending: Please do not hesitate to contact me at [phone] by phone or if you have questions or concerns regarding this new plan of care! Sincerely, Mary Ellen Bravo
--- NOTE | 2023-11-04 09:36 | HP.OTDCSUM ---
Discharge Summary D/C Summary: It has been my pleasure to treat MIGUEL YOUNG under orders from VALERIE Awad, for the diagnosis of Neuropathy for a total of 11 visit(s). Please see the following information for a summary of their discharge status. 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: 50 pounds lateral pinch: 5 pounds tripod pinch: 4 pounds R hand contact center engineer : 50 pounds lateral pinch: 8 pounds tripod pinch: 5 pounds semmi swan: thumb: R 4.74 L 4.17 IF: R 4.31 L 4.74 MF: R4.31 L 4.31 RF: R 4.32 L 4.31 LF: R 4.56 L 4.56 quick dash score this date now 13.635 indicating improvement in overall perceived use of B hands throughout daily functional tasks Goals Patient Goals: Regain Mobility, Regain Strength, Improve Fine Motor Skills, Use Hand/Wrist/Arm Normally Again, Decrease Tingling/Numbness and Be More Independent in ADLS Goal:: Pt to demo increased contact center engineer strength in bilat hands by 15# for participation in ADL/IADLs by end of 6 weeks. -- pt current contact center engineer strength L hand 50 pounds and R hand 50 pounds not met however increase in B hand strength since beginning of POC Pt to demo increased contact center engineer strength in bilat hands by 4# for participation in ADL/IADLs by end of 6 weeks. L hand 50 pounds R hand 50 pounds goal met Goal:: Pt to report independence and improved time to don/doffing clothing with buttons/zippers with compensatory techniques by end of 6 weeks. goal met Goal:: Pt to demonstrate understanding of safety with protection of hands with daily activities per pt report of consistency by end of education. pt ed provided in hand safety goal met Pt will demonstrate understanding of safety with protection of hands with visual compensation by discharge. goal met Goal:: Pt will demonstrate use of using bracing to prevent prolonged flexed positions by end of third visit. bracing not needed as pt has full ROM no stiffness handout HEP provided for AROM and exercises to increase/ maintain ROM and strength Plan Plan: home exercises provided pt to continue to complete for hand strengthening as well as self massage D/C Information d/c sentence: If there are questions or concerns regarding this patient's occupational therapy, please fell free to call me at [phone]. Thank you for the referral of this patient. Sincerely, Mary Ellen Bravo
== END 2023-11-04 19:00 | disposition home or self-care (01) ==
LOC: OT 09:00
PROVIDERS: Referring Provider Physician Assistant; Visit Provider Physician Assistant
DX: G62.9 Polyneuropathy, unspecified (principal)
CPT/HCPCS: 97110; 97165; 97530

== ENCOUNTER → 2023-11-05 | Outpatient (CLI) | payer MEDICARE, SELFPAY ==
--- NOTE | 2023-11-05 16:31 | CT_ITS ---
INDICATION: PROSTATE CA EXAMINATION: CT ABDOMEN AND PELVIS WITH AND WITHOUT CONTRAST - CT Abdomen And Pelvis WO/W Contrast Injection TECHNIQUE: Helically acquired images were obtained of the abdomen and pelvis both before and after IV contrast. A radiation dose optimization technique was used for this scan. IV Contrast dosage and agent: 100 cc Isovue-300 Oral contrast: None. COMPARISON: 12/30/2019 FINDINGS: LOWER CHEST: Bibasilar dependent and/or fibrotic changes. No cardiomegaly or pericardial effusion. LIVER: Homogeneous. No focal mass. GALLBLADDER AND BILIARY TREE: No calcified gallstones. No gallbladder distension or wall edema. No intra- or extrahepatic biliary ductal dilation. PANCREAS: No focal cystic or solid mass. SPLEEN: Normal size, stable small cyst or hemangioma. ADRENAL GLANDS: No nodules. KIDNEYS AND URETERS: Normal renal size and position. No hydronephrosis. PERITONEUM: No ascites or free air. BOWEL: Normal appendix. No stomach or bowel distension. Colonic diverticulosis without inflammatory wall changes. LYMPH NODES: No enlarged mesenteric or retroperitoneal lymph nodes. VESSELS: Aorta is non-dilated. URINARY BLADDER: Nondistended. REPRODUCTIVE ORGANS: No pelvic masses. ABDOMINAL WALL: No discrete abdominal or pelvic wall hernia. BONES: No lytic or blastic abnormality. CT/CT Abd/Pelvis W/WO Contrast IMPRESSION: No acute findings in the abdomen or pelvis. No evidence of metastatic prostate cancer. Colonic diverticulosis without CT changes of acute diverticulitis. Electronically Signed: Moises Miller MD at 18:28 EDT ,
[2023-11-05 16:57] LABS: CREATININE FINGERSTICK 1.1 mg/dL (0.70-1.30); EGFR FINGERSTICK > 60.0000 mL/min (>60)
== END | disposition home or self-care (01) ==
LOC: CT 16:30
PROVIDERS: Referring Provider Urology; Visit Provider Urology
DX: C61 Malignant neoplasm of prostate (principal)
CPT/HCPCS: 74178; Q9967

== ENCOUNTER → 2023-11-08 | Outpatient (CLI) | payer MEDICARE, SELFPAY ==
--- NOTE | 2023-11-08 09:01 | NM_ITS ---
CLINICAL: 83-year-old male with history of primary prostate carcinoma. WHOLE BODY 99m Tc MDP RADIONUCLIDE BONE SCINTIGRAPHY COMPARISON: CT of the abdomen-pelvis report 11/05/2023 FINDINGS: Following the intravenous administration of 26.9 mCi of 99m Tc MDP, whole body bone images reveal: 1. Increased radiopharmaceutical concentration is demonstrated in the cervical, thoracic and lumbar vertebra heterogeneously, the left wrist, the patellofemoral compartment of the right knee, medial tibial compartment of the left knee, the dorsal medial compartment of the left ankle, the right midfoot, the sternoclavicular compartments of both shoulders. 2. Enhanced uptake is noted in the acromioclavicular compartments of both shoulders, the medial glenoid and distal humeral components of the pelvis and bilateral asymptomatic shoulder prostheses. 3. The remaining skeletal structures are scintigraphically unremarkable with normal-appearing renal images and urinary bladder activity identified. NM/Bone Scan Whole Body IMPRESSION: 1. The increase in tracer uptake noted in the cervical, thoracic and lumbar spine, the left wrist, the right and left knees, the left ankle, the right midfoot and bilateral shoulder articulations is commensurate with degenerative arthrosis. Plain film radiography correlation may be of benefit in the region of the thoracic lumbar spine. 2. There is no definitive scintigraphic evidence of diffuse skeletal metastatic disease on the current examination. Electronically Signed: Alex Marie DO at 23:36 EDT ,
== END | disposition home or self-care (01) ==
LOC: NM 09:00
PROVIDERS: Referring Provider Urology; Visit Provider Urology
DX: C61 Malignant neoplasm of prostate (principal)
CPT/HCPCS: 78306; A9503

== ENCOUNTER → 2024-03-14 | Outpatient (CLI) | payer MEDICARE, SELFPAY ==
[2024-03-14 08:44] LABS: PSA,Total- Diagnostic 6.52 ng/mL (0.0-4.0)
== END | disposition home or self-care (01) ==
LOC: PAVLAB 08:05
PROVIDERS: Referring Provider Urology; Visit Provider Urology
DX: C61 Malignant neoplasm of prostate (principal)
CPT/HCPCS: 36415; 84153

== ENCOUNTER → 2025-01-16 | Outpatient (CLI) | payer MEDICARE, SELFPAY | END | disposition home or self-care (01) | LOC: PAVLAB 09:01 | PROVIDERS: Referring Provider Nurse Practitioner; Visit Provider Nurse Practitioner | DX: C61 Malignant neoplasm of prostate (principal) | CPT/HCPCS: 36415; 84153; G0103 ==

== ENCOUNTER 2025-04-05 15:53 | Emergency (ER) | payer MEDICARE, SELFPAY ==
[2025-04-05 15:54] VITALS: BP 129/72; PULSE 88; RESP 16; TEMP 36.8; O2SAT 100; BMI 28.8
--- NOTE | 2025-04-05 18:25 | EKG12_ITS ---
Test Reason : UPPER EXT Blood Pressure : */* mmHG Vent. 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
[2025-04-05 18:41] LABS: Hematocrit 43.5 % (40-54); Hemoglobin 14.9 g/dL (13.0-16.5); Immature Granulocytes Count 0.030 X10^3/uL (0.0-0.0); Mean Corp Hgb Conc 34.3 g/dL (32-36); Mean Corpuscular Volume 87.7 fL (80-94); Mean Platelet Vol. 9.8 fl (6.2-12.0); NRBC Flagged by Analyzer 0 % (0-5); Platelet Count 162 K/mm3 (150-450); RBC Distribution Width CV 13.6 % (11.6-14.6); RBC Distribution Width SD 43.8 fl (35.1-43.9); Red Blood Count 4.96 M/mm3 (4.6-6.2); White Blood Count 6.2 K/mm3 (4.4-11.0)
[2025-04-05 19:05] LABS: Anion Gap 11 (5-15); BUN 19 mg/dL (4-19); BUN/Creat Ratio 22.8 RATIO (10-20); Calcium,Total 9.6 mg/dL (7.6-11.0); Carbon Dioxide 25.6 mmol/L (21.0-32.0); Chloride 101 mmol/L (98-108); Estimated Creatinine Clearance 66.17 ml/min (50-250); Glucose 102 mg/dL (70-99); Potassium 4.1 mmol/L (3.3-5.1); Troponin T High Sensitivity 20 ng/L (<=22)
--- NOTE | 2025-04-05 19:10 | RAD_ITS ---
PROCEDURE: SHOULDER MIN 2 VIEWS 04/05/2025 REASON FOR EXAM: PAIN TECHNIQUE: Procedure Code: RADSH Modality: DX Procedure: SHOULDER MIN 2 VIEWS Laterality: FINDINGS: Status post right shoulder arthroplasty. Severe acromioclavicular degenerative changes. No evidence of acute complication. RAD/Shoulder min 2 Views IMPRESSION: Intact right shoulder arthroplasty. Acromioclavicular osteoarthrosis. Reading Location: [id number]
--- NOTE | 2025-04-05 19:10 | RAD_ITS ---
PROCEDURE: SHOULDER MIN 2 VIEWS 04/05/2025 REASON FOR EXAM: PAIN TECHNIQUE: Procedure Code: RADSH Modality: DX Procedure: SHOULDER MIN 2 VIEWS Laterality: FINDINGS: Status post left shoulder arthroplasty. Severe acromioclavicular degenerative changes. No evidence of acute complication. RAD/Shoulder min 2 Views IMPRESSION: Intact left shoulder arthroplasty. Acromioclavicular osteoarthrosis. Reading Location: [id number]
--- NOTE | 2025-04-05 19:10 | RAD_ITS ---
PROCEDURE: CHEST PA AND LATERAL 04/05/2025 REASON FOR EXAM: CHEST PAIN TECHNIQUE: Procedure Code: RADCXR Modality: DX Procedure: CHEST PA AND LATERAL COMPARISON: 11/18/2022. FINDINGS: The heart is normal in size. Right basilar linear opacities favoring mild atelectasis.. Bilateral shoulder arthroplasties. Degenerative changes of the spine. RAD/Chest PA and Lateral IMPRESSION: Right basilar linear opacities favoring mild atelectasis. Reading Location: [id number]
[2025-04-05 20:18] VITALS: BP 119/74; PULSE 78; RESP 18; O2SAT 95
--- NOTE | 2025-04-05 20:38 | EX.ED.UPPERE ---
HPI History of Present Illness Chief Complaint: Upper Extremity Injury Informant: patient Narrative Narrative: Patient is an 85-year-old male presenting with right shoulder pain, right neck pain that radiates into his right arm. Denies any trauma. It is worse when he looks to the left but otherwise constant. States is worsening throughout the day today. Took Tylenol with no relief. Denies associate chest pain shortness of breath. Denies any acute numbness or tingling. Came in for further evaluation especially as family was concerned that it could be referred cardiac pain. Denies any injury or trauma. [facility] Medical History Foreign body in right ear Acquired scleral show due to eyelid deformity Laxity of eyelid Visual field defect of both eyes Other seborrheic keratosis Neoplasm of skin of hand Neoplasm of skin of forearm COVID-19 Basal cell carcinoma of back Other acute postprocedural pain Wears hearing aid Wears glasses Wears dentures Cancer Depression Arthritis Prostate disease High cholesterol Syncope Pain History of diverticulitis Leg cramps History of echocardiogram Hypertension Cardiology follow-up encounter Actinic keratosis Seborrheic keratoses, inflamed Neoplasm of skin of back Neoplasm of skin of sternum Neoplasm of skin of left lateral forehead Neoplasm of skin of right cheek Former smoker Personal history of skin cancer Basal cell carcinoma (BCC) Neuropathy Hearing problem Allergies Benign prostatic hyperplasia Depression Peripheral neuropathy Obesity Aortic root dilatation Nonrheumatic aortic (valve) insufficiency Nonrheumatic mitral (valve) insufficiency Essential (primary) hypertension Hyperlipidemia BPH (benign prostatic hyperplasia) Spinal stenosis of lumbosacral region Radiculopathy of lumbosacral region DDD (degenerative disc disease), lumbosacral Primary osteoarthritis of left hip Home Medications ?Medication ?Instructions ?Recorded ?Last Taken ?Type duloxetine 60 mg capsule,delayed 60 mg PO DAILY 07/29/18 10/03/18 History release multivitamin 1 ea PO DAILY 07/29/18 Unknown History psyllium husk (with sugar) 3.4 3.4 g PO PRN PRN Constipation 07/29/18 Unknown History gram oral powder packet tamsulosin 0.4 mg capsule 0.4 mg PO DAILY 07/29/18 Unknown History pregabalin 50 mg capsule 50 mg PO BID 08/16/19 Unknown History acetaminophen 325 mg tablet 650 mg (2 x 325 mg) PO Q6H PRN PRN 12/31/19 Unknown Rx Pain Score 1-10/Temp > 100.7 F zinc sulfate 50 mg zinc (220 mg) 50 mg PO DAILY 08/05/22 Unknown History tablet metoprolol succinate 50 mg 50 mg PO QHS #90 tabs 12/24/22 Unknown Rx tablet,extended release 24 hr hydrochlorothiazide 12.5 mg tablet 12.5 mg PO DAILY #90 tabs 11/05/23 Unknown Rx atorvastatin 10 mg tablet 10 mg PO DAILY #90 tabs 02/14/25 Unknown Rx Allergy/AdvReac Type Severity Reaction Status Date / Time diazepam (From Valium) AdvReac Unknown Verified 04/05/25 15:55 Family History Mother Myocardial infarction Diabetes Asthma COPD (chronic obstructive pulmonary disease) Brother Leukemia Other Heart disease Surgical History Hx of circumcision Hx of tonsillectomy History of shoulder replacement H/O basal cell carcinoma excision History of pancreatic surgery History of back surgery Social History household members: children housing: house number of children: 2 current occupational status: retired Smoking Status: Former smoker alcohol intake: current alcohol intake frequency: 0-2 drinks per day Alcohol type: beer substance use type: does not use do you feel safe at home: Yes additional social history: Does Not Take Aspirin Does Not Take Ibuprofen ROS ROS ED Constitutional Constitutional ED: Denies chills or fever(s) Cardiovascular Cardiovascular: Denies chest pain or palpitations Respiratory/Chest Respiratory/Chest: Denies cough or dyspnea Gastrointestinal Gastrointestinal: Denies nausea or vomiting Musculoskeletal Musculoskeletal: Reports neck pain and other Details: Left shoulder pain rating to his left arm Integumentary Denies rash Neurologic Neurologic: Denies paresthesias or weakness Hematologic/Lymphatic Hematologic/Lymphatic: Denies easy bleeding or easy bruising EXAM Physical Exam Const Vital Signs: 04/05/25 15:54 04/05/25 20:18 Temperature 98.3 F Temperature Source Oral Pulse Rate 88 78 Respiratory Rate 16 18 Blood Pressure 129/72 H 119/74 Blood Pressure Mean 91 89 Pulse Ox 100 95 Oxygen Delivery Method Room Air Room Air Positive well nourished and well developed General Appearance ED: well developed and NAD HEENT Reports moist mucous membranes Eyes PERRL Neck full ROM and supple Neck Narrative: No JVD. Mild tenderness palpation of the left cervical insertion of the trapezius. When patient rotates his head to the left he seems to get a spasm of pain. Chest Wall inspection of chest normal and palpation of chest normal Resp normal respiratory effort Cardio regular rate, regular rhythm and no murmurs Cardio Narrative: 2+ radial pulses present GI non-tender and non-distended Back/Spine Cervical Spine: Negative for cervical spine tenderness Thoracic Spine / Upper Back: Negative for thoracic spinal tenderness Lumbar Spine / Lower Back: Negative for lumbar spinal tenderness Extremity Extremity Narrative: No deformity of extremities. Surgical scar on the left shoulder consistent with prior shoulder replacement. Normal range of motion of the shoulder. Normal strength and sensation with flexion extension as well as abduction and adduction of the upper arms. Normal sheet metal erector strength bilaterally. Neuro oriented x3, CN's II-XII intact bilaterally, moves all extremities, no focal motor deficits and no sensory deficits noted Sensorium / Orientation: alert Psych mental status grossly normal Skin Lesions: no lesions Rashes: no rashes MDM MDM MDM Narrative Medical decision making narrative: Patient's evaluated for left-sided shoulder pain going into his neck is down his left arm. He can increase the pain by looking to the left but states otherwise it is constant. It is not highly reproducible with physical exam maneuvers. Eitel signs are normal. Because of his age and comorbidities cardiac workup is obtained to ensure that this is not an unusual referred cardiac complaint. Given that the symptoms been going on all day and constant per patient do not think he requires delta high-sensitivity troponins as long as the first 1 is normal. His cardiac workup is largely normal. Patient is given aspirin the emergency room. On repeat evaluation his pain is actually improved. X-ray of the shoulder as well as the chest does not show any acute process such as abnormality of the hardware, periprosthetic fracture, pneumothorax, pneumonia or pleural effusion. Patient reevaluated. Feeling improved. Discussed treatment options at home for pain. Discussed risk of sedation associated with prescription muscle relaxers or pain medication and subsequent confusion and or fall. At this time they would like to just treat with Tylenol and topical medication such as Lidoderm patches. Patient is given 1 dose of Toradol prior to discharge and Lidoderm patch. Skin return precautions. Patient and daughter verbalized agreement understand this plan. Discharged home in stable and improved condition Lab Data Attestation: I reviewed the patient's lab results. Labs: Laboratory Results - last 24 hr 04/05/25 18:28 WBC 6.2 RBC 4.96 Hgb 14.9 Hct 43.5 MCV 87.7 MCH 30.0 MCHC 34.3 RDW Std Deviation 43.8 RDW Coeff of Michael 13.6 Plt Count 162 MPV 9.8 Immature Gran % (Auto) 0.500 Neut % (Auto) 62.5 Lymph % (Auto) 21.9 [place] % (Auto) 12.2 H Eos % (Auto) 2.4 Baso % (Auto) 0.5 Absolute Neuts (auto) 3.9 Absolute Lymphs (auto) 1.35 Nucleated RBC % 0 Sodium 138 Potassium 4.1 Chloride 101 Carbon Dioxide 25.6 Anion Gap 11 BUN 19 Creatinine 0.84 Estim Creat Clear Calc 66.17 Est GFR (MDRD) Non-Af 84 BUN/Creatinine Ratio 22.8 H Glucose 102 H Calcium 9.6 Troponin T High Sens 20 Radiography Diagnostic Testing: Clinical Impression(s) from Imaging Studies Chest X-Ray 04/05/25 19:10 IMPRESSION: Right basilar linear opacities favoring mild atelectasis. Reading Location: [address] Shoulder X-Ray 04/05/25 19:10 IMPRESSION: Intact right shoulder arthroplasty. Acromioclavicular osteoarthrosis. Reading Location: [address] Shoulder X-Ray 04/05/25 19:10 IMPRESSION: Intact left shoulder arthroplasty. Acromioclavicular osteoarthrosis. Reading Location: [address] Rhythm Strip Rhythm Strip: Sinus Rhythm Rate: 76 Ectopy: None EKG Initial EKG: Attestation: I personally reviewed and interpreted this EKG as follows: Interpretation: Sinus Rhythm Comments: Normal sinus rhythm at a rate of 76 bpm Normal intervals Normal axis Normal ST segments Discharge Plan Triage Chief Complaint: Upper Extremity Injury ED Provider: Ava Sepulveda Dx/Rx/DC Orders Clinical Impression: Spasm of left trapezius muscle, Neck pain on left side, Acute pain of left shoulder Instructions: ED Neck Spasm, No Trauma Prescriptions: No Action pregabalin 50 mg capsule 50 mg PO BID Patient Comments: TAKE 1 CAPSULE BY MOUTH TWICE DAILY zinc sulfate 50 mg zinc (220 mg) tablet 50 mg PO DAILY multivitamin 1 EACH tablet 1 ea PO DAILY tamsulosin 0.4 MG capsule 0.4 mg PO DAILY duloxetine 60 MG capsule 60 mg PO DAILY psyllium husk (with sugar) 3.4 GM powder in packet 3.4 g PO PRN PRN (Reason: Constipation) acetaminophen 325 MG tablet 650 mg PO Q6H PRN PRN (Reason: Pain Score 1-10/Temp > 100.7 F) 0RF metoprolol succinate 50 mg tablet extended release 24 hr 50 mg PO QHS Qty: 90 3RF hydrochlorothiazide 12.5 mg tablet 12.5 mg PO DAILY Qty: 90 3RF atorvastatin 10 mg tablet 10 mg PO DAILY Qty: 90 4RF Primary Care Provider: Christine Jimenez Referrals: Christine Jimenez, DO [Primary Care Provider] - Activity Restrictions/Additional Instructions: Please continue take Tylenol as needed for pain. I recommend using [id number] Lidoderm patches or topical anti-inflammatory such as Voltaren gel. Use heat to your neck and upper shoulder to help with the pain as well. If you have worsening symptoms please return to the emergency room. Print Language: Indonesian Disposition Disposition: Home, Self Care Discharge Date/Time: 04/05/25 21:38
[2025-04-05] MEDS: Lidocaine 5% Patch 1 PATCH TOPICAL (21:26)
[2025-04-05 21:37] VITALS: BP 119/74; PULSE 78; RESP 18; TEMP 36.6; O2SAT 95
== END 2025-04-05 21:38 | disposition home or self-care (01) ==
PROVIDERS: Emergency Provider Emergency Medicine; Visit Provider Emergency Medicine
DX: M62.838 Other muscle spasm (principal); M25.512 Pain in left shoulder; Z87.891 Personal history of nicotine dependence; M25.511 Pain in right shoulder; E78.00 Pure hypercholesterolemia, unspecified; I10 Essential (primary) hypertension; M54.2 Cervicalgia; Z86.16 Personal history of COVID-19
CPT/HCPCS: 71046; 73030; 80048; 84484; 85025; 93005; 96374; 99284; A4216

== ENCOUNTER → 2025-06-25 | Outpatient (CLI) | payer MEDICARE, SELFPAY ==
--- NOTE | 2025-06-25 12:00 | RAD_ITS ---
PROCEDURE: CERV SPINE 2 OR 3 VIEWS 06/25/2025 REASON FOR EXAM: NECK PAIN. Finger tingling, pain, shaking feeling. TECHNIQUE: Procedure Code: RADSPCL Modality: DX Procedure: CERV SPINE 2 OR 3 VIEWS COMPARISON: None. FINDINGS: BONES: No fracture or focal osseous lesion. Grade 1 anterolisthesis of C6 on C7. DISC/DEGENERATIVE CHANGES: Disc space narrowing and vertebral endplate osteophytes throughout. Multilevel facet arthropathy. SOFT TISSUES: No acute abnormality seen. RAD/Cerv Spine 2 or 3 Views IMPRESSION: 1. Diffuse cervical degenerative changes. 2. Grade 1 anterolisthesis at C6-C7, likely degenerative in etiology. Reading Location: [id number]
== END | disposition home or self-care (01) ==
LOC: RAD 11:56
DX: M54.2 Cervicalgia (principal)
CPT/HCPCS: 72040

== ENCOUNTER → 2025-07-11 | Outpatient (CLI) | payer MEDICARE, SELFPAY ==
[2025-07-11 11:09] LABS: PSA,Total- Diagnostic 6.90 ng/mL (0.00-4.00)
== END | disposition home or self-care (01) ==
PROVIDERS: Referring Provider Urology; Visit Provider Urology
DX: C61 Malignant neoplasm of prostate (principal)
CPT/HCPCS: 36415; 84153

== ENCOUNTER → 2025-07-31 | Outpatient (CLI) | payer MEDICARE, SELFPAY ==
--- NOTE | 2025-07-31 14:55 | MRI_ITS ---
PROCEDURE: SPINE CERVICAL (ROUTINE) 07/31/2025 REASON FOR EXAM: Cervical radiculopathy TECHNIQUE: Procedure Code: MRISPC Modality: MR Procedure: SPINE CERVICAL (ROUTINE) Multiplanar and multisequence images were obtained without IV contrast administration. COMPARISON: None available FINDINGS: The visualized posterior fossa contents appear within normal limits. Straightening of the cervical spine. The atlantooccipital and atlantoaxial joints appear normally aligned. The cervical vertebral bodies are normal in height. Mild C5-C6 and C6-C7 anterolisthesis. The cervical bone marrow signal is within normal limits. Multilevel disc desiccation intervertebral disc space height loss. Multiple prominent anterior osteophytes. There is no evidence of cervical spinal cord signal abnormality. C2-C3: Posterior disc osteophyte complex, facet arthrosis, uncovertebral spurring, and ligamentum flavum hypertrophy. Mild spinal canal stenosis. [id number] bilateral neural foraminal narrowing. C3-C4: No significant spinal canal stenosis. Bilateral facet arthrosis and uncovertebral spurring contribute to mild bilateral neural foraminal narrowing. C4-C5: Posterior disc osteophyte complex, bilateral facet arthrosis, and uncovertebral spurring. Mild spinal canal stenosis. Mild bilateral neural foraminal narrowing. C5-C6: Disc bulge, bilateral facet arthrosis, and uncovertebral spurring. Mild spinal canal stenosis. [id number] right and moderate left neural foraminal narrowing. C6-C7: Disc bulge, bilateral facet arthrosis, uncovertebral spurring, and ligamentum flavum hypertrophy. Moderate spinal canal stenosis with indentation of the ventral cord. Moderate right and severe left neural foraminal narrowing C7-T1: No disc bulge or herniation. No significant spinal canal stenosis. Facet arthrosis and uncovertebral spurring contribute to mild left neural foraminal narrowing. Intact right neural foramen. MRI/Spine Cervical (Routine) IMPRESSION: Multilevel cervical spondylosis most prominent at C6-7 where there is moderate spinal canal stenosis. Multiple levels of moderate and severe neural foraminal stenosis. Additional details as discussed above. Reading Location: [id number]
== END | disposition home or self-care (01) ==
PROVIDERS: Referring Provider Anesthesiology Pain Medicine; Visit Provider Anesthesiology Pain Medicine
DX: M54.12 Radiculopathy, cervical region (principal)
CPT/HCPCS: 72141